=== PATIENT | male | born 1965 | race Caucasian/White ===

== ENCOUNTER → 2016-08-15 | Outpatient (CLI) | payer MEDICARE, OTHER ==
--- NOTE | 2016-08-15 16:35 | P.HPBAR ---
Bariatric H&P - History & Physicial H&P Date: 08/15/16 History & Physicial: Visit/CC: panni consult Patient initial contact: Initial weight: 181.709 kg Initial weight in pounds: 400.60 Height: 5 ft 7.5 in Initial BMI: 61.8 Last weight: Current weight: 94.801 kg Current weight in pounds: 209.00 Current BMI: 32.2 [place] body weight (based on NIH guidelines): 68.492 kg Excess body weight loss: 76.7% The patient is a 51 year-old M who presents for Bariatric Assessment. Patient presents for sleeve and panniculectomy consult. His weight has been stable. His loss approximately 220 pounds. He has a well-formed pannus related to his weight loss. He is requesting information about panniculectomy. Past Medical History Past Medical History: Coronary Artery Disease (CAD), Chest Pain / Angina, Heart Failure, COPD, Diabetes Mellitus, GERD/Reflux, Hyperlipidemia, Hypertension, Myocardial Infarction ([place]), Osteoarthritis (OA), Pneumonia, Renal Disease, Skin Disorder, Sleep Apnea/CPAP/BIPAP, Vascular Disorder Additional Past Medical History / Comment(s): HX OF [place] X2 (DATE UNKNOWN), CARDIOMYOPATHY, RESP FAILURE,SOME MINOR SORES FROM SCRATCHING. OXYGEN AT 3 LITERS at bedtime. NO C-PAP. PNEUMONIA 06/2014. PVD. Last Myocardial Infarction Date:: UNKNOWN History of Any Multi-Drug Resistant Organisms: None Reported Past Surgical History: Bariatric Surgery, Heart Catheterization, Hernia Repair, Orthopedic Surgery Additional Past Surgical History / Comment(s): ATTEMPTED HEART CATH, VESSELS TOO SMALL 2012,. RT KNEE TENDON REPAIR. . UMBILICAL HERNIA REPAIR. EGD . gastric sleeve 09/14 Past Anesthesia/Blood Transfusion Reactions: No Reported Reaction Past Psychological History: ADD/ADHD, Anxiety, Depression Additional Psychological History / Comment(s): ADHD. SEES DR GRACE SANTANA. Smoking Status: Former smoker Past Alcohol Use History: None Reported Past Drug Use History: None Reported - Past Family History Father Family Medical History: Chest Pain / Angina, Congestive Heart Failure (CHF), COPD Mother Family Medical History: Diabetes Mellitus, GERD/Reflux Surgical - Exam Vital Signs Temp Pulse Resp BP 97.8 F 51 L 14 119/76 08/15/16 15:24 08/15/16 15:24 08/15/16 15:24 08/15/16 15:24 - General well developed, no distress - Eyes PERRL - ENT normal pinna - Neck no masses - Respiratory normal expansion - Cardiovascular Rhythm: regular - Abdomen Well-formed panniculus Abdomen: soft, non tender - Integumentary Well-formed panniculus. There is skin and fat pain to the level of the pubic area. There is some evidence of chronic skin irritation's. Bariatric Assessment & Plan Plan: Well-formed panniculus. Patient was given an information in the collecting. Photographs were performed. We'll attempt to obtain insurance authorization. Status post sleeve yesterday. Patient is doing well from a weight loss standpoint. He'll follow-up in one month. Bariatric Checklist Checklist: Plan: Checklist: EGD: 1. Hiatal hernia: 2. H. Pylori: HgbA1c: Vitamin D: Smoking: Former smoker Primary care physician referral: none ( Psychiatry clearance: Cardiology clearance: Sleep study: Diet journal: VTE risk score: VTE risk level: Rehab needs at discharge:
== END | disposition home or self-care (01) ==
CPT/HCPCS: 99211

== ENCOUNTER 2017-06-07 23:26 | Emergency (ER) | payer MEDICARE, OTHER ==
[2017-06-07 23:31] VITALS: RESP 18
[2017-06-07] MEDS ORDERED: MAGNESIUM CITRATE 296 ML BOTTLE PO ONE (23:45)
[2017-06-08 00:07] LABS: Basophils % (A) 0 %; CH 29.7; CHCM 33.2; Eosinophils # (A) 0.1 k/uL (0-0.7); Eosinophils % (A) 2 %; HCT 41.3 % (39.0-53.0); HDW 2.47; HGB 13.4 gm/dL (13.0-17.5); Luc % (Auto) 2; Lymphocytes # (A) 2.4 k/uL (1.0-4.8); Lymphocytes % (A) 34 %; MCH 29.2 pg (25.0-35.0); MCHC 32.5 g/dL (31.0-37.0); MCV 89.8 fL (80.0-100.0); Mean Platelet Volume 7.8; Monocytes # (A) 0.5 k/uL (0-1.0); Monocytes % (A) 7 %; Neutrophils # (A) 3.9 k/uL (1.3-7.7); Neutrophils % (A) 56 %; RDW 14.5 % (11.5-15.5); WBC 6.9 k/uL (3.8-10.6); WBC (Perox) 6.88
--- NOTE | 2017-06-08 00:25 | ED ---
GI Bleed HPI - General Chief complaint: GI Bleed Stated complaint: blood in stool Time Seen by Provider: 06/07/17 23:35 Source: patient Mode of arrival: ambulatory Limitations: no limitations - History of Present Illness Initial comments: 's patient is a 52-year-old man who presents with complaint of constipation. The patient states that he has been probably 3 days or more since he had a bowel movement. Tonight he was straining to pass some stool and he noted a few drops of blood in the toilet as well as having some blood wiped. The patient states that he tried taking Ex-Lax without any relief. He is requesting something else to try for constipation. Patient denies abdominal pain. MD complaint: blood on toilet paper Onset/Timin -: hour(s) Quality: painless Improves with: none Worsens with: none Associated Symptoms: denies other symptoms Treatments Prior to Arrival: none - Related Data Home Medications Medication Instructions Recorded Confirmed Naproxen Sodium [Aleve] 220 mg PO DAILY PRN 06/07/17 06/07/17 Allergies Allergy/AdvReac Type Severity Reaction Status Date / Time morphine AdvReac Hallucinati Verified 06/07/17 23:37 ons Review of Systems ROS Statement: Those systems with pertinent positive or pertinent negative responses have been documented in the HPI. ROS Other: All systems not noted in ROS Statement are negative. Constitutional: Denies: fever, chills Respiratory: Denies: cough Cardiovascular: Denies: chest pain, palpitations, syncope Gastrointestinal: Reports: constipation. Denies: abdominal pain, diarrhea Hematological/Lymphatic: Denies: easy bleeding Past Medical History Past Medical History: Coronary Artery Disease (CAD), Chest Pain / Angina, Heart Failure, COPD, Diabetes Mellitus, GERD/Reflux, Hyperlipidemia, Hypertension, Myocardial Infarction ([place]), Osteoarthritis (OA), Pneumonia, Renal Disease, Skin Disorder, Sleep Apnea/CPAP/BIPAP, Vascular Disorder Additional Past Medical History / Comment(s): HX OF [place] X2 (DATE UNKNOWN), CARDIOMYOPATHY, RESP FAILURE,SOME MINOR SORES FROM SCRATCHING. OXYGEN AT 3 LITERS at bedtime. NO C-PAP. PNEUMONIA 06/2014. PVD. Last Myocardial Infarction Date:: UNKNOWN History of Any Multi-Drug Resistant Organisms: None Reported Past Surgical History: Bariatric Surgery, Heart Catheterization, Hernia Repair, Orthopedic Surgery Additional Past Surgical History / Comment(s): ATTEMPTED HEART CATH, VESSELS TOO SMALL 2012,. RT KNEE TENDON REPAIR. . UMBILICAL HERNIA REPAIR. EGD . gastric sleeve 09/14 Past Anesthesia/Blood Transfusion Reactions: No Reported Reaction Past Psychological History: ADD/ADHD, Anxiety, Depression Smoking Status: Former smoker Past Alcohol Use History: None Reported Past Drug Use History: None Reported - Past Family History Father Family Medical History: Chest Pain / Angina, Congestive Heart Failure (CHF), COPD Mother Family Medical History: Diabetes Mellitus, GERD/Reflux General Exam Limitations: no limitations General appearance: alert, in no apparent distress Head exam: Present: atraumatic, normocephalic Eye exam: Present: normal appearance Respiratory exam: Present: normal lung sounds bilaterally. Absent: respiratory distress, wheezes, rales, rhonchi Cardiovascular Exam: Present: regular rate, normal rhythm, normal heart sounds. Absent: systolic murmur, diastolic murmur, rubs, gallop GI/Abdominal exam: Present: soft. Absent: distended, tenderness, guarding, rebound, mass Rectal exam: Present: normal rectal tone, other (Small fissure. Patient refused digital rectal exam). Absent: hemorrhoids Neurological exam: Present: alert, normal gait Skin exam: Present: warm, dry, intact, normal color. Absent: rash Course Vital Signs 06/07/17 23:27 Temperature 97 F L Pulse Rate 54 L Respiratory 18 Rate Blood Pressure 116/62 O2 Sat by Pulse 100 Oximetry Medical Decision Making - Lab Data Result diagrams: 06/07/17 23:53 Lab Results 06/07/17 Range/Units 23:53 WBC 6.9 (3.8-10.6) k/uL RBC 4.60 (4.30-5.90) m/uL Hgb 13.4 (13.0-17.5) gm/dL Hct 41.3 (39.0-53.0) % MCV 89.8 (80.0-100.0) fL MCH 29.2 (25.0-35.0) pg MCHC 32.5 (31.0-37.0) g/dL RDW 14.5 (11.5-15.5) % Plt Count 268 (150-450) k/uL Neutrophils % 56 % Lymphocytes % 34 % Monocytes % 7 % Eosinophils % 2 % Basophils % 0 % Neutrophils # 3.9 (1.3-7.7) k/uL Lymphocytes # 2.4 (1.0-4.8) k/uL Monocytes # 0.5 (0-1.0) k/uL Eosinophils # 0.1 (0-0.7) k/uL Basophils # 0.0 (0-0.2) k/uL Disposition Clinical Impression: Anal fissure, Constipation Disposition: HOME SELF-CARE Condition: Good Instructions: Gastrointestinal Bleeding (ED) Referrals: None,Stated [Primary Care Provider] - 1-2 days
[2017-06-08 00:39] VITALS: BP 106/58; PULSE 55; TEMP 97.7
== END 2017-06-08 00:39 | disposition home or self-care (01) ==
LOC: EC 23:26
DX: K60.2 Anal fissure, unspecified (principal); K59.00 Constipation, unspecified; Z87.891 Personal history of nicotine dependence; Z98.84 Bariatric surgery status; Z98.890 Other specified postprocedural states; Z88.5 Allergy status to narcotic agent
CPT/HCPCS: 36415; 85025; 99283

== ENCOUNTER 2017-07-17 18:24 | Observation (INO) | payer MEDICARE, OTHER ==
[2017-07-17] MEDS ORDERED: KETOROLAC 30 MG/ML 1 ML VIAL IVP STA (19:05)
[2017-07-17] MEDS ORDERED: NITROGLYCERIN OINT 1 INCH/GM PACKET TOPICAL STA (19:05)
[2017-07-17] MEDS ORDERED: ASPIRIN 81 MG PO STA (19:05)
--- NOTE | 2017-07-17 19:09 | ED ---
Chest Pain HPI - General Chief Complaint: Chest Pain Stated Complaint: CHEST PAIN, Hx Time Seen by Provider: 07/17/17 18:50 Source: patient Mode of arrival: wheelchair Limitations: no limitations - History of Present Illness Initial Comments: This 52-year-old white male presents with a complaint of some left-sided chest pain without radiation. He states that this occurred earlier today. He states that is a pressure type of pain. He has occasional shortness of breath. He denies any actual injuries. It is worse with deep inspiration. He denies any leg pain or swelling. He is unsure if he's ever had a DVT or PE. He is unsure when his last stress test was. He does relate a history of previous heart attack and congestive heart failure. He is requesting pain medications. Is somewhat difficult historian. No other complaints or modifying factors. - Related Data Home Medications Medication Instructions Recorded Confirmed Naproxen Sodium [Aleve] 220 mg PO BID PRN 06/07/17 07/17/17 Allergies Allergy/AdvReac Type Severity Reaction Status Date / Time morphine AdvReac Hallucinati Verified 07/17/17 18:29 ons Review of Systems ROS Statement: Those systems with pertinent positive or pertinent negative responses have been documented in the HPI. ROS Other: All systems not noted in ROS Statement are negative. Past Medical History Past Medical History: Coronary Artery Disease (CAD), Chest Pain / Angina, Heart Failure, COPD, Diabetes Mellitus, GERD/Reflux, Hyperlipidemia, Hypertension, Myocardial Infarction ([place]), Osteoarthritis ([place]), Pneumonia, Renal Disease, Skin Disorder, Sleep Apnea/CPAP/BIPAP, Vascular Disorder Additional Past Medical History / Comment(s): HX OF [place] X2 (DATE UNKNOWN), CARDIOMYOPATHY, RESP FAILURE,SOME MINOR SORES FROM SCRATCHING. OXYGEN AT 3 LITERS at bedtime. NO C-PAP. PNEUMONIA 06/2014. PVD. Last Myocardial Infarction Date:: UNKNOWN History of Any Multi-Drug Resistant Organisms: None Reported Past Surgical History: Bariatric Surgery, Heart Catheterization, Hernia Repair, Orthopedic Surgery Additional Past Surgical History / Comment(s): ATTEMPTED HEART CATH, VESSELS TOO SMALL 2012,. RT KNEE TENDON REPAIR. . UMBILICAL HERNIA REPAIR. EGD . gastric sleeve 09/14 Past Anesthesia/Blood Transfusion Reactions: No Reported Reaction Past Psychological History: ADD/ADHD, Anxiety, Depression Smoking Status: Former smoker Past Alcohol Use History: None Reported Past Drug Use History: None Reported - Past Family History Father Family Medical History: Chest Pain / Angina, Congestive Heart Failure (CHF), COPD Mother Family Medical History: Diabetes Mellitus, GERD/Reflux General Exam - General Exam Comments Initial Comments: GENERAL: The patient is well nourished and well hydrated. VITAL SIGNS: Heart rate, blood pressure, respiratory rate reviewed as recorded in nurse's notes. EYES: Pupils are round and reactive. Extraocular movements are intact. No conjunctival / lid redness or swelling. ENT: No external evidence of injury, swelling, or ecchymosis. Airway is patent. Throat is clear. NECK: Nontender. No swelling or evidence of injury. No subcutaneous emphysema. Trachea is midline. No thyroid mass. HEART: Regular rate and rhythm. Good peripheral pulses. LUNGS/CHEST: Breath sounds clear and equal bilaterally. No rales, rhonchi, or wheezes. No ecchymosis, subcutaneous emphysema. There is some mild tenderness upon palpation of the left chest. ABDOMEN: Abdomen soft without tenderness. No palpable masses or organomegaly. No peritoneal signs. No abdominal wall swelling or ecchymosis. EXTREMITIES: No extremity tenderness. Normal muscle tone and function. No thoracolumbar tenderness. There is no leg tenderness or swelling. NEUROLOGIC: Sensation is grossly intact. Cranial nerve exam reveals face is symmetrical, tongue is midline, speech is clear. SKIN: No abrasions or ecchymosis is noted. No induration or masses noted. PSYCHIATRIC: Alert and oriented. Appropriate behavior and judgment. Limitations: no limitations Course Vital Signs 07/17/17 07/17/17 18:26 19:31 Temperature 97.3 F L Pulse Rate 54 L 56 L Respiratory 18 18 Rate Blood Pressure 117/71 130/75 O2 Sat by Pulse 100 98 Oximetry Chest Pain MDM - MDM The patient was seen and examined. All diagnostics were reviewed. The EKG shows a sinus bradycardia at a rate of 53. There is no acute ST-T wave changes identified. The TX intervals 152, QRS duration is 104, and the QTC intervals 410. He does receive some aspirin as well as Nitropaste and Toradol. The chest x-ray was negative for any acute processes. The laboratory was all within normal limits including the troponin and d-dimer. The patient is continually requesting Dilaudid. It is not felt as though Dilaudid is warranted for this condition. He is complaining of chronic hip pain and chronic neck pain as well. He is given Tylenol instead and voices displeasure. Nevertheless, it is felt as though he benefit from admission to the hospital to rule out any possibility of acute coronary syndrome. Case is discussed with Dr. Ramirez and he is agreeable with admission. Disposition Clinical Impression: Chest pain, Sinus bradycardia, Chronic pain Disposition: ADMITTED IP TO THIS [facility] Condition: Fair Time of Disposition: 21:41 Decision Date: 07/17/17 Decision Time: 21:41
[2017-07-17 19:24] LABS: Basophils % (A) 1 %; CH 29.8; CHCM 34.3; Eosinophils # (A) 0.1 k/uL (0-0.7); Eosinophils % (A) 2 %; HCT 41.2 % (39.0-53.0); HGB 13.7 gm/dL (13.0-17.5); Luc # (Auto) 0.13; Luc % (Auto) 2; Lymphocytes # (A) 2.3 k/uL (1.0-4.8); Lymphocytes % (A) 26 %; MCH 29.1 pg (25.0-35.0); MCHC 33.3 g/dL (31.0-37.0); MCV 87.3 fL (80.0-100.0); Mean Platelet Volume 7.3; Monocytes # (A) 0.4 k/uL (0-1.0); Monocytes % (A) 5 %; Neutrophils # (A) 5.6 k/uL (1.3-7.7); Neutrophils % (A) 66 %; RBC 4.72 m/uL (4.30-5.90); RDW 12.5 % (11.5-15.5); WBC 8.6 k/uL (3.8-10.6); WBC (Perox) 8.12
[2017-07-17 19:35] LABS: ALT 37 U/L (21-72); AST 52 U/L (17-59); Alkaline Phosphatase 72 U/L (38-126); Anion Gap 8 mmol/L; Blood Urea Nitrogen 20 mg/dL (9-20); Calcium 9.4 mg/dL (8.4-10.2); Carbon Dioxide 27 mmol/L (22-30); Chloride 105 mmol/L (98-107); Glucose 79 mg/dL (74-99); Non-African American GFR(MDRD) >60 (>60 ml/min/1.73 sqM); Potassium 4.2 mmol/L (3.5-5.1); Sodium 140 mmol/L (137-145); Total Bilirubin 0.3 mg/dL (0.2-1.3); Total Protein 6.6 g/dL (6.3-8.2)
[2017-07-17 19:38] LABS: INR 1.1 (<1.2); Partial Thromboplastin Time 23.5 sec (22.0-30.0); Prothrombin Time 10.8 sec (9.0-12.0)
[2017-07-17 19:59] LABS: Creatine Kinase MB 1.2 ng/mL (0.0-2.4); Troponin I 0.015 ng/mL (0.000-0.034)
--- NOTE | 2017-07-17 20:21 | XR ---
EXAMINATION: XR chest 2V DATE AND TIME: 07/17/2017 7:50 PM ORDERING PROVIDER: Gonzales Hargrove DO CLINICAL INDICATION: Chest Pain TECHNIQUE: AP and lateral COMPARISON: 09/06/2015 DESCRIPTION: EKG leads noted. The lungs are clear. The pleural spaces are negative. The cardiac silhouette is not enlarged. The mediastinal and pleural silhouettes are unremarkable. The skeletal structures are intact without focal findings. The soft tissues are unremarkable. IMPRESSION: NO ACUTE PROCESS.
[2017-07-17] MEDS ORDERED: ACETAMINOPHEN TAB 500 MG TAB PO STA (21:35)
[2017-07-17] MEDS ORDERED: NITROGLYCERIN SL TABS 0.4 MG TAB SUBLINGUAL PRN (21:44)
[2017-07-17] MEDS ORDERED: ACETAMINOPHEN TAB 325 MG TAB PO PRN (21:44)
[2017-07-17] MEDS ORDERED: KETOROLAC 30 MG/ML 1 ML VIAL IVP PRN (21:47)
[2017-07-17] MEDS ORDERED: HYDROmorphone 1 MG/ML 1 ML SYRINGE IVP STA (22:13)
[2017-07-17] MEDS ORDERED: NALOXONE 0.4 MG/ML 1 ML VIAL IV PRN (22:24)
[2017-07-17] MEDS ORDERED: ONDANSETRON 4 MG/2 ML VIAL IVP PRN (22:24)
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
[2017-07-17] MEDS: HYDROcodone/APAP 5-325MG 1 EACH TAB PO PRN (23:13)
[2017-07-17] MEDS: NITROGLYCERIN OINT 1 INCH/GM PACKET TOPICAL SCH (23:25)
--- NOTE | 2017-07-17 23:40 | XR ---
EXAM: XR Right Hip CLINICAL HISTORY: Reason: Pain TECHNIQUE: X-ray right hip. COMPARISON: January 01, 2014 FINDINGS/IMPRESSION: 2 views. No acute fracture or dislocation is identified. DJD which appears more prominent than the previous examination with more prominent disc space narrowing, osteophytes and mixed areas of subchondral sclerosis and lucencies likely representing subchondral cysts. If symptoms warrant, could obtain MRI follow-up as discussed on the previous.
[2017-07-18 01:16] LABS: Creatine Kinase MB 1.1 ng/mL (0.0-2.4); Troponin I 0.013 ng/mL (0.000-0.034)
[2017-07-18] MEDS: HYDROmorphone 1 MG/ML 1 ML SYRINGE IV PRN ×5 (01:45→13:26)
[2017-07-18] MEDS: HYDROcodone/APAP 5-325MG 1 EACH TAB PO PRN ×3 (05:04→14:48)
[2017-07-18] MEDS: NITROGLYCERIN OINT 1 INCH/GM PACKET TOPICAL SCH ×3 (05:08→11:28)
[2017-07-18 05:48] LABS: Glucose,Whole Blood 95 mg/dL (75-99)
[2017-07-18 06:38] LABS: Basophils % (A) 1 %; CH 29.4; CHCM 32.6; Eosinophils # (A) 0.2 k/uL (0-0.7); Eosinophils % (A) 3 %; HCT 37.6 % (39.0-53.0); HDW 2.46; Luc # (Auto) 0.09; Luc % (Auto) 1; Lymphocytes # (A) 2.7 k/uL (1.0-4.8); Lymphocytes % (A) 35 %; MCV 90.5 fL (80.0-100.0); Mean Platelet Volume 7.7; Monocytes # (A) 0.4 k/uL (0-1.0); Monocytes % (A) 5 %; Neutrophils # (A) 4.2 k/uL (1.3-7.7); Neutrophils % (A) 55 %; RBC 4.15 m/uL (4.30-5.90); RDW 13.9 % (11.5-15.5); WBC 7.6 k/uL (3.8-10.6); WBC (Perox) 7.81
[2017-07-18 06:53] LABS: Anion Gap 6 mmol/L; Blood Urea Nitrogen 20 mg/dL (9-20); Calcium 8.9 mg/dL (8.4-10.2); Carbon Dioxide 28 mmol/L (22-30); Chloride 107 mmol/L (98-107); Cholesterol 162 mg/dL (<200); Glucose 85 mg/dL (74-99); HDL Cholesterol 57 mg/dL (40-60); Non-African American GFR(MDRD) >60 (>60 ml/min/1.73 sqM); Phosphorus 4.8 mg/dL (2.5-4.5); Potassium 4.2 mmol/L (3.5-5.1); Sodium 141 mmol/L (137-145)
[2017-07-18 07:21] LABS: Troponin I 0.015 ng/mL (0.000-0.034)
[2017-07-18 08:02] VITALS: RESP 16; TEMP 97.1
[2017-07-18] MEDS ORDERED: ENOXAPARIN 40 MG/0.4 ML SYRINGE SQ SCH (09:00)
[2017-07-18] MEDS ORDERED: ASPIRIN 325 MG TAB PO SCH (09:00)
[2017-07-18 11:27] VITALS: BP 117/78; PULSE 62
[2017-07-18 11:29] LABS: Glucose,Whole Blood 130 mg/dL (75-99)
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
[2017-07-18] MEDS ORDERED: LISINOPRIL 2.5 MG TAB PO SCH (13:15)
--- NOTE | 2017-07-18 13:54 | P.PN ---
Progress Note - Text Progress Note Date: 07/18/17 This is an addendum to the cardiology consultation dictated earlier today. Dr. Salazar did review the echocardiogram with Doppler study and compare with prior. LV is unchanged. Patient presented with atypical chest discomfort. We will maximize the patient's medical therapy by adding aspirin, statin, SUMIT inhibitor , he will need to be on a beta brooke however because of hypotension and bradycardia this will be reassessed in the office. A follow-up appointment will be made with Dr. Salazar in 3-4 weeks and outpatient stress test ordered. DNP note has been reviewed, I agree with a documented findings and plan of care. Patient was seen and examined.
--- NOTE | 2017-07-18 14:26 | ECHOF ---
Referral Reason: MEASUREMENTS -------- HEIGHT: 170.2 cm WEIGHT: 83.9 kg BP: 98/56 RVIDd: 2.7 cm (< 3.3) IVSd: 1.2 cm (0.6 - 1.1) LVIDd: 5.1 cm (3.9 - 5.3) LVPWd: 0.9 cm (0.6 - 1.1) IVSs: 1.3 cm LVIDs: 3.6 cm LVPWs: 1.6 cm LA Diam: 4.4 cm (2.7 - 3.8) LAESV Index (A-L): 38.21 ml/m Ao Diam: 3.2 cm (2.0 - 3.7) AV Cusp: 2.0 cm (1.5 - 2.6) LA Diam: 4.4 cm (2.7 - 3.8) MV EXCURSION: 18.048 mm (> 18.000) MV EF SLOPE: 62 mm/s (70 - 150) EPSS: 0.6 cm MV E Brain: 1.05 m/s MV DecT: 259 ms MV A Brain: 0.56 m/s MV E/A Ratio: 1.88 RAP: 5.00 mmHg RVSP: 24.61 mmHg FINDINGS -------- Sinus rhythm. This was a technically good study. The left ventricular size is normal. There is mild concentric left ventricular hypertrophy. Overa ll left ventricular systolic function is moderate-severely impaired with, an EF between 30 - 35 %. Possible Takotsubo. Lateral hypokinesis [place] Hypokinesis. Distal Septal Hypokinesis. The right ventricle is normal in size. LA is moderately dilated 34-39 ml/m2 The right atrial size is normal. The aortic valve is trileaflet, and appears structurally normal. No aortic stenosis or regurgitation. Mild mitral regurgitation is present. Mild tricuspid regurgitation present. There is no evidence of pulmonary hypertension. The right v entricular systolic pressure, as measured by Doppler, is 24.61mmHg. Trace/mild (physiologic) pulmonic regurgitation. The aortic root size is normal. There is no pericardial effusion. CONCLUSIONS -------- 1. The left ventricular size is normal. 2. There is mild concentric left ventricular hypertrophy. 3. Overall left ventricular systolic function is moderate-severely impaired with, an EF between 30 - 35 %. 4. Possible Takotsubo. 5. Lateral hypokinesis 6. [place] Hypokinesis. 7. Distal Septal Hypokinesis. 8. LA is moderately dilated 34-39 ml/m2 9. The aortic valve is trileaflet, and appears structurally normal. No aortic stenosis or regurgitati on. 10. Mild mitral regurgitation is present. 11. Mild tricuspid regurgitation present. 12. There is no evidence of pulmonary hypertension. 13. The right ventricular systolic pressure, as measured by Doppler, is 24.61mmHg. 14. Trace/mild (physiologic) pulmonic regurgitation. 15. The aortic root size is normal. 16. There is no pericardial effusion. [employer]ALENT ACQUISITION PROJECT MANAGER: Leena Sultana RDCS
--- NOTE | 2017-07-18 14:47 | P.DS ---
Providers Date of admission: 07/17/17 21:44 Attending physician: Mauricio Ramirez MD Consults: 07/17/17 21:44 Consult Physician Urgent Consulting Provider: Aleks Akbar Consult Reason/Comments: cp Do you want consulting provider notified?: Yes Primary care physician: Stated None - Discharge Diagnosis(es) (1) Atypical chest pain Current Visit: Yes Status: Acute (2) Cardiomyopathy Current Visit: Yes Status: Acute Hospital Course: The patient is a 52-year-old male who was admitted for atypical chest pain he has a history of cardiomyopathy he had initial EKG and cardiac enzymes all of which were negative for any suggestion of acute ischemia, cardiology Dr. Salazar was consulted and recommended echocardiogram that showed EF of 30-35% possible Takotsubo cardiomyopathy. Cardiology thought that the patient did not require stress test at this time but recommended initiation of low-dose lisinopril, aspirin and statin therapy with plans to follow up in cardiology clinic in 3-4 weeks. Patient Condition at Discharge: Fair Plan - Discharge Summary New Discharge Prescriptions: New Aspirin 81 mg PO DAILY #30 chew Atorvastatin [Lipitor] 20 mg PO HS #30 tab Lisinopril [Zestril] 2.5 mg PO DAILY #30 tab Continue Naproxen Sodium [Aleve] 220 mg PO BID PRN PRN Reason: Pain Discharge Medication List Naproxen Sodium [Aleve] 220 mg PO BID PRN 06/07/17 [History] Aspirin 81 mg PO DAILY #30 chew 07/18/17 [Rx] Atorvastatin [Lipitor] 20 mg PO HS #30 tab 07/18/17 [Rx] Lisinopril [Zestril] 2.5 mg PO DAILY #30 tab 07/18/17 [Rx] Discharge Disposition: HOME SELF-CARE
[2017-07-18] MEDS ORDERED: ATORVASTATIN 20 MG TAB PO SCH (21:00)
[2017-07-19] MEDS ORDERED: ASPIRIN 81 MG PO SCH (09:00)
== END 2017-07-18 16:43 | disposition home or self-care (01) ==
LOC: EC 18:24 → 6SEL 21:44
PROVIDERS: ADMIT Internal Medicine; ATTEND Internal Medicine
DX: R07.89 Other chest pain (principal); I42.9 Cardiomyopathy, unspecified; M54.2 Cervicalgia; M25.551 Pain in right hip; G89.29 Other chronic pain; I11.0 Hypertensive heart disease with heart failure; I50.20 Unspecified systolic (congestive) heart failure; I25.10 Atherosclerotic heart disease of native coronary artery without angina pectoris; Z91.14 Patient's other noncompliance with medication regimen; E78.5 Hyperlipidemia, unspecified; G47.30 Sleep apnea, unspecified; J44.9 Chronic obstructive pulmonary disease, unspecified; Z99.81 Dependence on supplemental oxygen; I25.2 Old myocardial infarction; M19.90 Unspecified osteoarthritis, unspecified site; Z87.891 Personal history of nicotine dependence; Z88.5 Allergy status to narcotic agent; Z98.84 Bariatric surgery status; Z87.01 Personal history of pneumonia (recurrent)
CPT/HCPCS: 99285 ×2; 96374 ×2; 96375 ×2; 96376; 96372; 36415; 94760; 93005; 93306; 85379; 83880; 80061; 80053; 80048; 82550 ×2; 82553 ×2; 83735 ×2; 84100; 84484 ×2; 85025 ×2; 85610; 85730; 71020; 73502; G0378 ×2; J1650; J1885; J1170 ×2

== ENCOUNTER → 2017-08-07 | Outpatient (CLI) | payer MEDICARE, OTHER ==
[2017-08-07 14:28] VITALS: BP 121/76; PULSE 42; RESP 16; TEMP 97.8; BMI 30.1
--- NOTE | 2017-08-07 16:49 | P.HPBAR ---
Bariatric H&P - History & Physicial H&P Date: 08/07/17 History & Physicial: Visit/CC: sleeve pursuing janette Patient initial contact: Initial weight: 181.709 kg Initial weight in pounds: 400.60 Height: 5 ft 7.5 in Initial BMI: 61.8 Last weight: Current weight: 88.649 kg Current weight in pounds: 195.00 Current BMI: 30.1 [place] body weight (based on NIH guidelines): 68.492 kg Excess body weight loss: 82.3% The patient is a 52 year-old M who presents for Bariatric Assessment. The patient presents today for sleeve gastrectomy follow-up. He is doing very well. He's lost another 15 pounds since his last visit. He's had some minimal GERD symptoms. Past Medical History Past Medical History: Coronary Artery Disease (CAD), Chest Pain / Angina, Heart Failure, COPD, Diabetes Mellitus, GERD/Reflux, Hyperlipidemia, Hypertension, Myocardial Infarction (AR), Osteoarthritis (OA), Pneumonia, Renal Disease, Skin Disorder, Sleep Apnea/CPAP/BIPAP, Vascular Disorder Additional Past Medical History / Comment(s): HX OF [place] X2 (DATE UNKNOWN), CARDIOMYOPATHY, RESP FAILURE,SOME MINOR SORES FROM SCRATCHING. OXYGEN AT 3 LITERS at bedtime. NO C-PAP. PNEUMONIA 06/2014. PVD. Last Myocardial Infarction Date:: UNKNOWN History of Any Multi-Drug Resistant Organisms: None Reported Past Surgical History: Bariatric Surgery, Heart Catheterization, Hernia Repair, Orthopedic Surgery Additional Past Surgical History / Comment(s): ATTEMPTED HEART CATH, VESSELS TOO SMALL 2012,. RT KNEE TENDON REPAIR. . UMBILICAL HERNIA REPAIR. EGD . gastric sleeve 09/14 Past Anesthesia/Blood Transfusion Reactions: No Reported Reaction Past Psychological History: ADD/ADHD, Anxiety, Depression Additional Psychological History / Comment(s): ADHD. looking for new psych physician Smoking Status: Former smoker Past Alcohol Use History: None Reported Past Drug Use History: None Reported - Past Family History Father Family Medical History: Chest Pain / Angina, Congestive Heart Failure (CHF), COPD Mother Family Medical History: Diabetes Mellitus, GERD/Reflux Surgical - Exam Vital Signs Temp Pulse Resp BP 97.8 F 42 L 16 121/76 08/07/17 14:26 08/07/17 14:26 08/07/17 14:26 08/07/17 14:26 - General well developed, no distress - Abdomen Abdomen: soft, non tender Bariatric Assessment & Plan Plan: Status post sleeve yesterday. Patient has had excellent weight loss. His GERD symptoms are minimal will be observed. He'll follow-up in one month. Bariatric Checklist Checklist: Plan: Checklist: EGD: 1. Hiatal hernia: 2. H. Pylori: HgbA1c: Vitamin D: Smoking: Former smoker Primary care physician referral: none ( Psychiatry clearance: Cardiology clearance: Sleep study: Diet journal: VTE risk score: VTE risk level: Rehab needs at discharge:
== END | disposition home or self-care (01) ==
LOC: BARWHC3 12:59
PROVIDERS: ATTEND Surgery
DX: Z09 Encounter for follow-up examination after completed treatment for conditions other than malignant neoplasm (principal); I50.9 Heart failure, unspecified; E11.9 Type 2 diabetes mellitus without complications; J44.9 Chronic obstructive pulmonary disease, unspecified; E78.5 Hyperlipidemia, unspecified; I10 Essential (primary) hypertension; F41.9 Anxiety disorder, unspecified; F32.9 Major depressive disorder, single episode, unspecified; Z87.891 Personal history of nicotine dependence; Z98.84 Bariatric surgery status
CPT/HCPCS: 99211

== ENCOUNTER 2018-04-12 14:56 | Observation (INO) | payer MEDICARE, OTHER ==
[2018-04-12] MEDS ORDERED: SODIUM CHLORIDE 0.9% 500 ML IV STA (15:10)
--- NOTE | 2018-04-12 15:10 | ED ---
General Adult HPI - General Chief complaint: Arrhythmia/Palpitations Stated complaint: heart concerns-sent by Source: patient Mode of arrival: ambulatory Limitations: no limitations - History of Present Illness Initial comments: Dictation was produced using [employer] dictation software. please excuse any grammatical, word or spelling errors. Chief Complaint: 53-year-old male was seen at her care physician's office and was found to be bradycardic and lightheaded. History of Present Illness: Patient is a 53-year-old male who was at his primary care's office. He has not seen that primary care in the past. She was attended to [facility] for the first time. Initial vital signs that they showed bradycardia with a rate in the 30s. He was shown to have a normal blood pressure. Patient states been feeling lightheaded for the past week especially with exertion. Patient has extensive history of coronary artery disease. Patient states he slightly short of breath especially with exertion. History of multiple heart attacks. He explains that he doesn't have any stents because the arteries were 2 small. Patient denies any constitutional symptoms. He denies any chest pain at this time. Patient does have chronic hip and knee pain of the right side. Patient has been noncompliant with physicians recently. He is not on any medications at this time. The ROS documented in this emergency department record has been reviewed and confirmed by me. Those systems with pertinent positive or negative responses have been documented in the HPI. All other systems are other negative and/or noncontributory. - Related Data Home Medications Medication Instructions Recorded Confirmed Naproxen Sodium [Aleve] 220 mg PO BID PRN 06/07/17 04/12/18 Allergies Allergy/AdvReac Type Severity Reaction Status Date / Time morphine AdvReac numbness Verified 04/12/18 15:24 Review of Systems ROS Statement: Those systems with pertinent positive or pertinent negative responses have been documented in the HPI. ROS Other: All systems not noted in ROS Statement are negative. Past Medical History Past Medical History: Coronary Artery Disease (CAD), Chest Pain / Angina, Heart Failure, COPD, Diabetes Mellitus, GERD/Reflux, Hyperlipidemia, Hypertension, Myocardial Infarction ([place]), Osteoarthritis (OA), Pneumonia, Renal Disease, Skin Disorder, Sleep Apnea/CPAP/BIPAP, Vascular Disorder Additional Past Medical History / Comment(s): HX OF OR X2 (DATE UNKNOWN), CARDIOMYOPATHY, RESP FAILURE,SOME MINOR SORES FROM SCRATCHING. OXYGEN AT 3 LITERS at bedtime. NO C-PAP. PNEUMONIA 06/2014. PVD. Last Myocardial Infarction Date:: UNKNOWN History of Any Multi-Drug Resistant Organisms: None Reported Past Surgical History: Bariatric Surgery, Heart Catheterization, Hernia Repair, Orthopedic Surgery Additional Past Surgical History / Comment(s): ATTEMPTED HEART CATH, VESSELS TOO SMALL 2012,. RT KNEE TENDON REPAIR. . UMBILICAL HERNIA REPAIR. EGD . gastric sleeve 09/14 Past Anesthesia/Blood Transfusion Reactions: No Reported Reaction Past Psychological History: ADD/ADHD, Anxiety, Depression Smoking Status: Former smoker Past Alcohol Use History: None Reported Past Drug Use History: None Reported - Past Family History Father Family Medical History: Chest Pain / Angina, Congestive Heart Failure (CHF), COPD Mother Family Medical History: Diabetes Mellitus, GERD/Reflux General Exam - General Exam Comments Initial Comments: PHYSICAL EXAM: General Impression: Alert and oriented x3, not in acute distress HEENT: Normocephalic atraumatic, extra-ocular movements intact, pupils equal and reactive to light bilaterally, mucous membranes moist. Cardiovascular: Bradycardic no murmurs Chest: Lungs clear to auscultation bilaterally, no rhonchi, no wheeze, no rales Abdomen: Bowel sounds present, abdomen soft, non-tender, non-distended, no organomegaly Musculoskeletal: Pulses present and equal in all extremities, no peripheral edema Motor: Power 5/5 bilaterally, no focal deficits noted Neurological: CN II-XII grossly intact, no focal motor or sensory deficits noted Skin: Intact with no visualized rashes Psych: Normal affect and mood Limitations: no limitations Course Vital Signs 04/12/18 04/12/18 04/12/18 14:58 15:34 15:40 Temperature 98.1 F Pulse Rate 42 L 43 L Pulse Rate [ 40 L Steel Heater ] Respiratory 20 18 Rate Blood Pressure 150/89 154/90 O2 Sat by Pulse 99 100 Oximetry Medical Decision Making - Medical Decision Making ED course: 53-year-old male presents with bradycardia. Vital signs upon arrival shows heart rate of 42, rest of vital signs within normal limits. Patient is well-appearing. Physical examination is benign. Some morphine for chronic right hip and right knee pain. Patient denies any chest pain at this time. Lungs are clear to auscultation.Laboratory evaluation obtained. CBC unremarkable, coag panel unremarkable, metabolic panel is negative. Abdominal labs are negative. Cardiac enzymes are negative. Patient was observed in emergency department for several hours with stable heart rate in the 40s. Patient has no complaint at this time. Given bradycardia will plan to have patient admitted for cardiac consultation. No intervention indicated at this time. Patient is understandable agreeable to disposition. EKG interpretation: Ventricular rate 40, sinus bradycardia,. Interval 140, care surgeon 104, QTC 365. No HI prolongation, no QTC prolongation, no ST or T- wave changes noted. EKG compared to Gen. 2017 showing no changes. Overall , this EKG is unremarkable - Lab Data Result diagrams: 04/12/18 15:30 04/12/18 15:30 Lab Results 04/12/18 04/12/18 04/12/18 Range/Units 15:30 15:30 15:30 WBC 6.2 (3.8-10.6) k/uL RBC 4.58 (4.30-5.90) m/uL Hgb 13.0 (13.0-17.5) gm/dL Hct 40.6 (39.0-53.0) % MCV 88.7 (80.0-100.0) fL MCH 28.5 (25.0-35.0) pg MCHC 32.1 (31.0-37.0) g/dL RDW 14.0 (11.5-15.5) % Plt Count 251 (150-450) k/uL Neutrophils % 58 % Lymphocytes % 32 % Monocytes % 7 % Eosinophils % 1 % Basophils % 0 % Neutrophils # 3.6 (1.3-7.7) k/uL Lymphocytes # 1.9 (1.0-4.8) k/uL Monocytes # 0.4 (0-1.0) k/uL Eosinophils # 0.1 (0-0.7) k/uL Basophils # 0.0 (0-0.2) k/uL PT (9.0-12.0) sec INR (<1.2) APTT (22.0-30.0) sec Sodium 140 (137-145) mmol/L Potassium 4.7 (3.5-5.1) mmol/L Chloride 105 (98-107) mmol/L Carbon Dioxide 27 (22-30) mmol/L Anion Gap 8 mmol/L BUN 17 (9-20) mg/dL Creatinine 0.89 (0.66-1.25) mg/dL Est GFR (CKD-EPI)AfAm >90 (>60 ml/min/1.73 sqM) Est GFR (CKD-EPI)NonAf >90 (>60 ml/min/1.73 sqM) Glucose 92 (74-99) mg/dL Calcium 9.4 (8.4-10.2) mg/dL Magnesium 2.0 (1.6-2.3) mg/dL Total Bilirubin 0.6 (0.2-1.3) mg/dL AST 43 (17-59) U/L ALT 33 (21-72) U/L Alkaline Phosphatase 63 (38-126) U/L Total Creatine Kinase 86 (55-170) U/L CK-MB (CK-2) 1.3 (0.0-2.4) ng/mL CK-MB (CK-2) Rel Index 1.5 Troponin I 0.013 (0.000-0.034) ng/mL Total Protein 7.3 (6.3-8.2) g/dL Albumin 4.2 (3.5-5.0) g/dL TSH 1.320 (0.465-4.680) mIU/L 04/12/18 Range/Units 15:30 WBC (3.8-10.6) k/uL RBC (4.30-5.90) m/uL Hgb (13.0-17.5) gm/dL Hct (39.0-53.0) % MCV (80.0-100.0) fL MCH (25.0-35.0) pg MCHC (31.0-37.0) g/dL RDW (11.5-15.5) % Plt Count (150-450) k/uL Neutrophils % % Lymphocytes % % Monocytes % % Eosinophils % % Basophils % % Neutrophils # (1.3-7.7) k/uL Lymphocytes # (1.0-4.8) k/uL Monocytes # (0-1.0) k/uL Eosinophils # (0-0.7) k/uL Basophils # (0-0.2) k/uL PT 11.0 (9.0-12.0) sec INR 1.1 (<1.2) APTT 25.0 (22.0-30.0) sec Sodium (137-145) mmol/L Potassium (3.5-5.1) mmol/L Chloride (98-107) mmol/L Carbon Dioxide (22-30) mmol/L Anion Gap mmol/L BUN (9-20) mg/dL Creatinine (0.66-1.25) mg/dL Est GFR (CKD-EPI)AfAm (>60 ml/min/1.73 sqM) Est GFR (CKD-EPI)NonAf (>60 ml/min/1.73 sqM) Glucose (74-99) mg/dL Calcium (8.4-10.2) mg/dL Magnesium (1.6-2.3) mg/dL Total Bilirubin (0.2-1.3) mg/dL AST (17-59) U/L ALT (21-72) U/L Alkaline Phosphatase (38-126) U/L Total Creatine Kinase (55-170) U/L CK-MB (CK-2) (0.0-2.4) ng/mL CK-MB (CK-2) Rel Index Troponin I (0.000-0.034) ng/mL Total Protein (6.3-8.2) g/dL Albumin (3.5-5.0) g/dL TSH (0.465-4.680) mIU/L Disposition Clinical Impression: Bradycardia Disposition: ADMITTED IP TO THIS HOSP Condition: Fair Referrals: Susanne Gamino MD [Primary Care Provider] - 1-2 days Decision Time: 16:48
[2018-04-12 15:43] LABS: Basophils % (A) 0 %; Eosinophils # (A) 0.1 k/uL (0-0.7); Eosinophils % (A) 1 %; HCT 40.6 % (39.0-53.0); Lymphocytes # (A) 1.9 k/uL (1.0-4.8); Lymphocytes % (A) 32 %; MCH 28.5 pg (25.0-35.0); MCHC 32.1 g/dL (31.0-37.0); MCV 88.7 fL (80.0-100.0); Mean Platelet Volume 6.7; Monocytes # (A) 0.4 k/uL (0-1.0); Monocytes % (A) 7 %; Neutrophils # (A) 3.6 k/uL (1.3-7.7); Neutrophils % (A) 58 %; Platelet Count 251 k/uL (150-450); RBC 4.58 m/uL (4.30-5.90); WBC 6.2 k/uL (3.8-10.6)
[2018-04-12 15:52] LABS: INR 1.1 (<1.2)
[2018-04-12 15:56] LABS: ALT 33 U/L (21-72); AST 43 U/L (17-59); Albumin 4.2 g/dL (3.5-5.0); Alkaline Phosphatase 63 U/L (38-126); Anion Gap 8 mmol/L; Blood Urea Nitrogen 17 mg/dL (9-20); Calcium 9.4 mg/dL (8.4-10.2); Carbon Dioxide 27 mmol/L (22-30); Chloride 105 mmol/L (98-107); Glucose 92 mg/dL (74-99); Potassium 4.7 mmol/L (3.5-5.1); Sodium 140 mmol/L (137-145); Total Bilirubin 0.6 mg/dL (0.2-1.3); Total Protein 7.3 g/dL (6.3-8.2)
--- NOTE | 2018-04-12 16:04 | XR ---
EXAMINATION TYPE: XR chest 2V DATE OF EXAM: 04/12/2018 COMPARISON: 08/29/2017 HISTORY: 53-year-old male with dysrhythmia, abnormal EKG TECHNIQUE: PA and lateral views FINDINGS: The cardiomediastinal silhouette, aorta, and pulmonary vasculature are within normal limits. Some str [place]lan atelectasis at the right base. Otherwise, lungs and pleural spaces are clear. IMPRESSION: [place] right basilar atelectasis. Otherwise, no acute cardiopulmonary process.
[2018-04-12] MEDS ORDERED: MORPHINE SULFATE 4 MG/ML SYRINGE IVP PRN (16:12)
[2018-04-12] MEDS ORDERED: NAPROXEN 250 MG TAB PO PRN (16:14)
[2018-04-12] MEDS ORDERED: ACETAMINOPHEN TAB 500 MG TAB PO PRN (16:16)
[2018-04-12] MEDS ORDERED: TEMAZEPAM 15 MG CAP PO PRN (16:16)
[2018-04-12 16:29] LABS: Creatine Kinase MB 1.3 ng/mL (0.0-2.4); Troponin I 0.013 ng/mL (0.000-0.034)
[2018-04-12] MEDS ORDERED: NALOXONE 0.4 MG/ML 1 ML VIAL IV PRN (16:43)
--- NOTE | 2018-04-12 18:17 | HP ---
HISTORY AND PHYSICAL CHIEF COMPLAINT: Bradycardia. HISTORY OF PRESENT ILLNESS: This 53-year-old gentleman with a past medical history of multiple medical issues, including CAD, history of CHF, COPD, diabetes mellitus, type 2, GERD, hypertension, hyperlipidemia, history of myocardial infarction, history of renal disease, history of bariatric surgery, history of cardiac catheterization, ADD, ADHD, saw Dr. Susanne Gamino today for the first time, according to him. While in the office the patient was noted to have bradycardia. The rate was in the 30s. The physician sent the patient to [facility] for further evaluation and treatment. EKG showed sinus bradycardia. The patient was also feeling some lightheadedness, especially with exertion, for the past week. There is no history of any fever, rigor or chills. No history of headache, loss of consciousness, seizures. Chest x-ray was also done and showed some right basilar atelectasis. The basic labs are within normal limits. There is no history of any fever, rigor or chills at this time. PAST MEDICAL HISTORY: 1. History of CAD. 2. COPD. 3. CHF. 4. Diabetes mellitus. 5. GERD. 6. Hypertension. 7. Hyperlipidemia. 8. History of myocardial infarction. 9. History of bariatric surgery. 10.ADD, ADHD. 11.Anxiety. 12.Depression. HOME MEDICATIONS: Naprosyn 220 mg b.i.d. p.r.n. ALLERGIES: MORPHINE. FAMILY HISTORY: History of CHF and COPD. SOCIAL HISTORY: Previous history of smoking. No current smoking or alcohol intake. REVIEW OF SYSTEMS: ENT: No diminished hearing. No diminished vision. CARDIOVASCULAR SYSTEM: As mentioned earlier. RESPIRATORY SYSTEM: As mentioned earlier. GI: No nausea, vomiting. : No dysuria or retention. NERVOUS SYSTEM: No numbness, weakness. ALLERGY/IMMUNOLOGY: No asthma, hayfever. MUSCULOSKELETAL: As mentioned earlier. HEMATOLOGY/ONCOLOGY: No history of anemia. ENDOCRINE: No history of diabetes, hypothyroidism. CONSTITUTIONAL: As mentioned earlier. DERMATOLOGY: Negative. RHEUMATOLOGY: Negative. PSYCHIATRY: As mentioned earlier. PHYSICAL EXAMINATION: Patient is alert, oriented x3. The pulse is 40, blood pressure 150/90, respiration 18, temperature 98.1, pulse ox 100% on 2 L. HEENT: Conjunctivae normal. Oral mucosa moist. NECK: No jugular venous distention. No carotid bruit. No lymph node enlargement. CARDIOVASCULAR SYSTEM: S1, S2 muffled. Bradycardic. RESPIRATORY SYSTEM: Breath sounds diminished at the bases. No rhonchi. No crackles. ABDOMEN: Soft, non-tender. No mass palpable. LEGS: No edema. No swelling. NERVOUS SYSTEM: Higher functions as mentioned earlier. Moves all 4 limbs. No focal motor or sensory deficit. LYMPHATICS: No lymph node palpable in neck, axillae or groin. SKIN: No ulcer, rash, bleeding. No focal deficit. JOINTS: No active deforming arthropathy. LABS AT THIS TIME: CBC, CMP within normal limits. ASSESSMENT: 1. Bradycardia, symptomatic, for evaluation. 2. Dizziness. 3. History of coronary artery disease with occluded left anterior descending coronary artery with a failed attempt of percutaneous transluminal angioplasty previously. 4. Hypertension. 5. Degenerative joint disease. 6. History of chronic obstructive pulmonary disease. 7. Diabetes mellitus, type 2. 8. Hypertension. 9. Hyperlipidemia. 10.History of myocardial infarction. 11.History of sleep apnea. 12.History of bariatric surgery. 13.Attention deficit disorder, attention deficit hyperactivity disorder. 14.Anxiety, depression. RECOMMENDATION AND DISCUSSION: In this 53-year-old gentleman who presented with multiple complex medical issues., we will we will monitor the patient closely, continue the current medications, continue with symptomatic treatment. Monitor blood pressure closely. Telemetry. Cardiology consultation. Exact etiology of the bradycardia is unknown at this time. We will continue to monitor. The prognosis is guarded because of multiple complex medical issues. We will also check a TSH. Further recommendations to follow. A copy of this dictation is being forwarded to Dr. Susanne Gamino, who is the primary physician. MMODL / IJN: [id number] / MTDD
[2018-04-12] MEDS: HYDROcodone/APAP 5-325MG 1 EACH TAB PO PRN (20:53)
[2018-04-12] MEDS: ALPRAZolam 0.25 MG TAB PO PRN (20:54)
[2018-04-12] MEDS: HEPARIN SODIUM,PORCINE 5,000 UNIT/ML 1 ML VIAL SQ SCH (20:54)
[2018-04-12 22:03] LABS: Appearance,Urine Clear (Clear); Bilirubin,Urine Negative (Negative); Blood,Urine Negative (Negative); Color,Urine Light Yellow; Glucose,Urine (UA) Negative (Negative); Ketones,Urine Negative (Negative); Leukocyte Esterase,Urine Negative (Negative); Nitrite,Urine Negative (Negative); PH, Urine 6.5 (5.0-8.0); Protein,Urine Negative (Negative); Specific Gravity,Urine 1.009 (1.001-1.035); Urobilinogen,Urine <2.0 mg/dL (<2.0)
[2018-04-12 22:16] LABS: Amphetamine Screen,Urine Not Detected (NotDetected); Barbiturate Screen,Urine Not Detected (NotDetected); Benzodiazepines Screen,Urine Not Detected (NotDetected); Cocaine Screen,Urine Not Detected (NotDetected); Methadone Screen, Urine Not Detected (NotDetected); Opiate Screen,Urine Detected (NotDetected); Oxycodone Screen, Urine Detected (NotDetected); Phencyclidine Screen,Urine Not Detected (NotDetected); Tricyclic Antidepressant,Urine Not Detected (NotDetected); Urn Cannabinoid Scrn Not Detected (NotDetected)
[2018-04-12] MEDS ORDERED: MORPHINE SULFATE 2 MG/ML SYRINGE IVP PRN (23:07)
[2018-04-13] MEDS: HYDROcodone/APAP 5-325MG 1 EACH TAB PO PRN ×5 (01:04→20:02)
[2018-04-13 06:09] LABS: Anion Gap 7 mmol/L; Blood Urea Nitrogen 15 mg/dL (9-20); Calcium 8.8 mg/dL (8.4-10.2); Carbon Dioxide 26 mmol/L (22-30); Chloride 106 mmol/L (98-107); Glucose 84 mg/dL (74-99); Potassium 4.3 mmol/L (3.5-5.1); Sodium 139 mmol/L (137-145)
[2018-04-13] MEDS: PANTOPRAZOLE 40 MG TABLET PO SCH (08:32)
[2018-04-13] MEDS: HEPARIN SODIUM,PORCINE 5,000 UNIT/ML 1 ML VIAL SQ SCH ×2 (08:32→20:01)
--- NOTE | 2018-04-13 09:07 | P.CRDCN ---
History of Present Illness Consult date: 04/13/18 Requesting physician: Gee Mendez Reason for Consult (text): Bradycardia Chief complaint: Dizziness, lightheadedness History of present illness: This is a 53-year-old gentleman with history of prior diabetes, history of ischemic cardiomyopathy, history of chronic total occlusion of the LAD, hypertension, hyperlipidemia, he states that over the past 3 years after having sleep surgery, he lost approximately 300 pounds in weight. Since then he has not required any insulin, he only takes Aleve when necessary at home. Patient used to follow with Dr. German in the office, it appears that he has not had a follow-up there in quite some time, he had been on multiple medications in the past which he no longer has been taking any. History of noncompliance in the past. He did undergo a Lexiscan stress test in July 2017 which revealed 3 demonstrated findings suggesting a large anterior, anterior septal and apical infarction, fixed defects were slightly larger on that stress test as compared with the one prior to that. The last echocardiogram with Doppler study was performed in June 2017 which revealed an ejection fraction of 30-35%. The patient states that for the past few days she's been experiencing some symptoms of dizziness and lightheadedness and just overall feeling generally fatigued, he presented to the hospital from his doctor 's office, went there to be examined and it was noted that his heart rate was down in the 30s. His chest x-ray showed strandy right basilar atelectasis otherwise no acute cardiopulmonary process. Let pressure on admission here 150/ 80 with a heart rate of 40, 99% on room air. Blood pressure this morning is 110 /70, heart rate 46, 98% on room air. CBC is normal, sodium 139, potassium 4.3, BUN 15, creatinine 0.8. Troponin 0.013. TSH 1.3. Magnesium level 2.0. Toxicology positive for opiates and oxycodone. At the time of my examination, patient complains of just feeling tired, no other complaints. Heart rate 42. EKG shows a marked sinus bradycardia with T wave inversion in the lateral leads. EKG from July of this year also shows a marked sinus bradycardia with a heart rate in the 40s similar changes. Past Medical History Past Medical History: Coronary Artery Disease (CAD), Chest Pain / Angina, Heart Failure, COPD, Diabetes Mellitus, GERD/Reflux, Hyperlipidemia, Hypertension, Myocardial Infarction (MT), Osteoarthritis (OA), Pneumonia, Renal Disease, Skin Disorder, Sleep Apnea/CPAP/BIPAP, Vascular Disorder Additional Past Medical History / Comment(s): HX OF [place] X2 (DATE UNKNOWN), CARDIOMYOPATHY, RESP FAILURE, djd, NO C-PAP. PNEUMONIA 06/2014. PVD.adhd Last Myocardial Infarction Date:: UNKNOWN History of Any Multi-Drug Resistant Organisms: None Reported Past Surgical History: Bariatric Surgery, Heart Catheterization, Hernia Repair, Orthopedic Surgery Additional Past Surgical History / Comment(s): ATTEMPTED HEART CATH, VESSELS TOO SMALL 2012,. RT KNEE TENDON REPAIR. . UMBILICAL HERNIA REPAIR. EGD . gastric sleeve 09/14 Past Anesthesia/Blood Transfusion Reactions: No Reported Reaction Smoking Status: Former smoker - Past Family History Father Family Medical History: Chest Pain / Angina, Congestive Heart Failure (CHF), COPD Mother Family Medical History: Diabetes Mellitus, GERD/Reflux Medications and Allergies Home Medications Medication Instructions Recorded Confirmed Type Naproxen Sodium [Aleve] 220 mg PO BID PRN 06/07/17 04/12/18 History Allergies Allergy/AdvReac Type Severity Reaction Status Date / Time morphine AdvReac numbness Verified 04/12/18 15:24 Physical Exam Vitals: Vital Signs Temp Pulse Pulse Resp BP BP Pulse Ox 04/13/18 04:00 97.0 F L 46 L 16 110/72 98 04/13/18 00:00 97.2 F L 52 L 17 94/55 95 04/12/18 20:00 97.4 F L 43 L 16 155/92 100 04/12/18 18:45 98.6 F 49 L 20 134/66 99 04/12/18 17:45 41 L 20 155/84 99 04/12/18 16:45 46 L 20 139/78 98 04/12/18 15:40 43 L 18 154/90 100 04/12/18 15:34 40 L 04/12/18 14:58 98.1 F 42 L 20 150/89 99 Intake and Output 04/12/18 04/13/18 04/13/18 22:59 06:59 14:59 Intake Total 240 Output Total 450 Balance -450 240 Intake: Oral 240 Output: Urine 450 Other: Voiding Method Urinal Urinal # Voids 1 Weight 82.1 kg PHYSICAL EXAMINATION: GENERAL: 53-year-old gentleman in no apparent distress at the time of my examination HEENT: Head is atraumatic, normocephalic. Pupils equal, round. Sclera anicteric. Conjunctiva are clear. Mucous membranes of the mouth are moist. Neck is supple. There is no elevated jugular venous pressure. No carotid bruit is heard. HEART EXAMINATION: Heart S1, S2 systolic ejection murmur heard at the base . CHEST EXAMINATION: Lungs are clear to auscultation and precussion. No chest wall tenderness is noted on palpation or with deep breathing. ABDOMEN: Soft, nontender. Bowel sounds are heard. No organomegaly noted. EXTREMITIES: 2+ peripheral pulses with trace evidence of peripheral edema and no calf tenderness noted. NEUROLOGIC patient is awake, alert and oriented X3. . Results 04/12/18 15:30 04/13/18 05:15 Cardiac Enzymes 04/12/18 04/12/18 Range/Units 15:30 15:30 AST 43 (17-59) U/L CK-MB (CK-2) 1.3 (0.0-2.4) ng/mL Troponin I 0.013 (0.000-0.034) ng/mL Coagulation 04/12/18 Range/Units 15:30 PT 11.0 (9.0-12.0) sec APTT 25.0 (22.0-30.0) sec CBC 04/12/18 Range/Units 15:30 WBC 6.2 (3.8-10.6) k/uL RBC 4.58 (4.30-5.90) m/uL Hgb 13.0 (13.0-17.5) gm/dL Hct 40.6 (39.0-53.0) % Plt Count 251 (150-450) k/uL Comprehensive Metabolic Panel 04/12/18 04/13/18 Range/Units 15:30 05:15 Sodium 140 139 (137-145) mmol/L Potassium 4.7 4.3 (3.5-5.1) mmol/L Chloride 105 106 (98-107) mmol/L Carbon Dioxide 27 26 (22-30) mmol/L BUN 17 15 (9-20) mg/dL Creatinine 0.89 0.84 (0.66-1.25) mg/dL Glucose 92 84 (74-99) mg/dL Calcium 9.4 8.8 (8.4-10.2) mg/dL AST 43 (17-59) U/L ALT 33 (21-72) U/L Alkaline Phosphatase 63 (38-126) U/L Total Protein 7.3 (6.3-8.2) g/dL Albumin 4.2 (3.5-5.0) g/dL Current Medications Generic Name Dose Route Start Last Admin Trade Name Freq PRN Reason Stop Dose Admin Acetaminophen 500 mg 04/12/18 16:16 Tylenol Tab PO Q6HR PRN Fever and/ or MILD Pain Hydrocodone Bitart/Acetaminophen 1 each 04/12/18 20:50 04/13/18 05:40 [place] 5-325 PO 1 each Q4HR PRN Administration MODERATE Pain Alprazolam 0.25 mg 04/12/18 16:16 04/12/18 20:54 Xanax PO 0.25 mg TID PRN Administration Anxiety Heparin Sodium (Porcine) 5,000 unit 04/12/18 21:00 04/13/18 08:32 Heparin SQ 5,000 unit Q12HR SRIDHAR Administration Morphine Sulfate 4 mg 04/12/18 16:12 04/12/18 16:39 Morphine Sulfate (Inj) IVP 4 mg ONCE PRN Administration SEVERE Pain Morphine Sulfate 2 mg 04/12/18 23:07 Morphine Sulfate (Inj) IVP Q4HR PRN Moderate to Severe Pain Naloxone HCl 0.2 mg 04/12/18 16:43 Narcan IV Q2M PRN Opioid Reversal Naproxen 250 mg 04/12/18 16:14 Naprosyn PO BID PRN MILD Pain Pantoprazole Sodium 40 mg 04/13/18 07:30 04/13/18 08:32 Protonix PO 40 mg [id number] SRIDHAR Administration Temazepam 15 mg 04/12/18 16:16 04/12/18 20:54 Restoril PO 15 mg HS PRN Administration Insomnia Intake and Output 04/12/18 04/13/18 04/13/18 22:59 06:59 14:59 Intake Total 240 Output Total 450 Balance -450 240 Intake: Oral 240 Output: Urine 450 Other: Voiding Method Urinal Urinal # Voids 1 Weight 82.1 kg 04/12/18 15:30 04/13/18 05:15 EKG Interpretations (text) EKG shows a sinus bradycardia with heart rate in the 40s Assessment and Plan Plan: assessment and plan #1 symptoms of dizziness and lightheadedness with associated bradycardia. EKG shows a sinus bradycardia with heart rate in the 40s. Patient is not on any rate lowering medication. TSH normal. #2 straight of ischemic cardiomyopathy with prior documented ejection fraction of 30% by echo performed in June 2017 #3 known chronic total occlusion of the LAD #4 history of diabetes, patient states she has not taken insulin for quite some time after losing weight post surgery #5 hyperlipidemia, not on medications #6 hypertension, not on medications #7 history of noncompliance #8 prior history of smoking #9 anxiety and depression #10 sleep apnea Plan We will repeat an echocardiogram with Doppler study. We'll also obtain a fasting lipid profile. Patient has discontinued all medications he is on in the past, he is not currently on any rate lowering medications. EKG back in June showed a sinus bradycardia with a heart rate in the 40s as well. Further recommendations to follow. DNP note has been reviewed, I agree with a documented findings and plan of care. Patient was seen and examined.
[2018-04-13] MEDS: ALPRAZolam 0.25 MG TAB PO PRN ×2 (09:36→21:16)
[2018-04-13] MEDS: LOSARTAN 25 MG TAB PO SCH (11:51)
--- NOTE | 2018-04-13 15:54 | PN ---
PROGRESS NOTE DATE OF SERVICE: 04/13/2018. INTERVAL HISTORY: This 53-year-old gentleman was admitted with bradycardia, also had features of CHF also. Cardiology is following the patient closely. No chest pain. No palpitations. No fever. Losartan has been initiated. PHYSICAL EXAM: Alert and oriented x3. The pulse is 58, blood pressure 108/60, respiration 18, temperature 97.2, pulse ox 98% on room air. HEENT: Conjunctivae normal. Oral mucosa moist. NECK: No jugular venous distention. No carotid bruit. No lymph node enlargement. CARDIOVASCULAR: S1, S2. RESPIRATORY: Breath sounds diminished in the bases. A few rhonchi, no crackles. ABDOMEN: Soft, nontender. NERVOUS SYSTEM: No focal deficits. LEGS: No edema, no swelling. LABS: WBC 6, hemoglobin is 13. Otherwise, CMP within normal limits. UA noted. ASSESSMENT: 1. Bradycardia symptomatic for evaluation. 2. Dizziness. 3. Chronic pain syndrome. 4. History of coronary artery disease, occluded LAD and as well as failed attempted percutaneous transluminal angioplasty previously. 5. Ischemic cardiomyopathy, ejection fraction 30%. 6. Hypertension. 7. Degenerative joint disease. 8. History of chronic obstructive pulmonary disease. 9. Diabetes mellitus type 2. 10.Hypertension. 11.Hyperlipidemia. 12.History of myocardial infarction. 13.History of sleep apnea. 14.History of bariatric surgery. 15.History of attention deficit disorder, attention deficit hyperactivity disorder. 16.Anxiety, depression. RECOMMENDATIONS AND DISCUSSION: I recommend to continue current management and symptomatic treatment. Otherwise at this time I would recommend to continue the current medications and continue with Cozaar. Continue the rest of the medications. Prognosis guarded because of multiple complex medical issues. See orders for details. Further recommendations to follow. MMODL / IJN: [id number] /
[2018-04-14] MEDS: HYDROcodone/APAP 5-325MG 1 EACH TAB PO PRN ×3 (02:36→14:10)
[2018-04-14] MEDS: ALPRAZolam 0.25 MG TAB PO PRN (04:52)
[2018-04-14 07:51] LABS: Basophils % (A) 0 %; Eosinophils # (A) 0.1 k/uL (0-0.7); Eosinophils % (A) 2 %; HCT 37.9 % (39.0-53.0); HGB 12.4 gm/dL (13.0-17.5); Lymphocytes # (A) 1.7 k/uL (1.0-4.8); Lymphocytes % (A) 39 %; MCH 28.4 pg (25.0-35.0); MCHC 32.7 g/dL (31.0-37.0); Mean Platelet Volume 6.9; Monocytes # (A) 0.3 k/uL (0-1.0); Monocytes % (A) 7 %; Neutrophils # (A) 2.2 k/uL (1.3-7.7); Neutrophils % (A) 49 %; Platelet Count 219 k/uL (150-450); RBC 4.36 m/uL (4.30-5.90); RDW 14.1 % (11.5-15.5); WBC 4.5 k/uL (3.8-10.6)
[2018-04-14 07:57] LABS: Anion Gap 6 mmol/L; Blood Urea Nitrogen 15 mg/dL (9-20); Calcium 8.9 mg/dL (8.4-10.2); Carbon Dioxide 28 mmol/L (22-30); Chloride 106 mmol/L (98-107); Glucose 88 mg/dL (74-99); Potassium 4.5 mmol/L (3.5-5.1); Sodium 140 mmol/L (137-145)
[2018-04-14] MEDS: HEPARIN SODIUM,PORCINE 5,000 UNIT/ML 1 ML VIAL SQ SCH (08:17)
[2018-04-14] MEDS: PANTOPRAZOLE 40 MG TABLET PO SCH (08:17)
[2018-04-14] MEDS: LOSARTAN 25 MG TAB PO SCH (08:18)
[2018-04-14] MEDS ORDERED: ATORVASTATIN 40 MG TAB PO SCH (09:00)
[2018-04-14] MEDS ORDERED: SPIRONOLACTONE 25 MG TAB PO SCH (09:00)
[2018-04-14 10:16] VITALS: RESP 18; TEMP 96.9
--- NOTE | 2018-04-14 11:01 | P.PN ---
Subjective Progress Note Date: 04/14/18 This is a 53-year-old gentleman with history of prior diabetes, history of ischemic cardiomyopathy, history of chronic total occlusion of the LAD, hypertension, hyperlipidemia, he states that over the past 3 years after having sleep surgery, he lost approximately 300 pounds in weight. Since then he has not required any insulin, he only takes Aleve when necessary at home. Patient used to follow with Dr. German in the office, it appears that he has not had a follow-up there in quite some time, he had been on multiple medications in the past which he no longer has been taking any. History of noncompliance in the past. He did undergo a Lexiscan stress test in July 2017 which revealed 3 demonstrated findings suggesting a large anterior, anterior septal and apical infarction, fixed defects were slightly larger on that stress test as compared with the one prior to that. The last echocardiogram with Doppler study was performed in June 2017 which revealed an ejection fraction of 30-35%. The patient states that for the past few days she's been experiencing some symptoms of dizziness and lightheadedness and just overall feeling generally fatigued, he presented to the hospital from his doctor 's office, went there to be examined and it was noted that his heart rate was down in the 30s. His chest x-ray showed strandy right basilar atelectasis otherwise no acute cardiopulmonary process. Let pressure on admission here 150/ 80 with a heart rate of 40, 99% on room air. Blood pressure this morning is 110 /70, heart rate 46, 98% on room air. CBC is normal, sodium 139, potassium 4.3, BUN 15, creatinine 0.8. Troponin 0.013. TSH 1.3. Magnesium level 2.0. Toxicology positive for opiates and oxycodone. At the time of my examination, patient complains of just feeling tired, no other complaints. Heart rate 42. EKG shows a marked sinus bradycardia with T wave inversion in the lateral leads. EKG from July of this year also shows a marked sinus bradycardia with a heart rate in the 40s similar changes. 04/14/2018 Patient was seen and examined this morning, denies any chest discomfort in breathing overall is stable. Blood pressure 118/60 with a heart rate of 48-52. White blood cell count 4.5, hemoglobin 12.4, platelet count 219, sodium 140, potassium 4.5, BUN 15, creatinine 0.9. Patient was initiated on losartan and Aldactone yesterday, he is not on a beta boroke because of bradycardia. Patient was encouraged regarding the importance of taking his medications regularly. We will await results of echocardiogram with Doppler study. We will make the patient a follow-up appointment in the office which he has been encouraged to keep. If patient continues to have a reduced LV function he may require implantation of AICD down the road, it was explained to the patient that he is at increased risk for sudden cardiac based on his cardiomyopathy. Objective - Vital Signs Vital signs: Vital Signs Temp 96.9 F L 04/14/18 08:00 Pulse 47 L 04/14/18 08:00 Resp 18 04/14/18 08:00 BP 118/69 04/14/18 08:00 Pulse Ox 100 04/14/18 08:00 Intake & Output 04/13/18 04/14/18 04/14/18 18:59 06:59 18:59 Intake Total 1020 720 240 Balance 1020 720 240 Weight 81.4 kg Intake: Oral 1020 720 240 Other: Voiding Method Urinal Toilet Toilet Urinal Urinal # Voids 3 3 - Exam PHYSICAL EXAMINATION: GENERAL: 53-year-old gentleman in no apparent distress at the time of my examination HEENT: Head is atraumatic, normocephalic. Pupils equal, round. Sclera anicteric. Conjunctiva are clear. Mucous membranes of the mouth are moist. Neck is supple. There is no elevated jugular venous pressure. No carotid bruit is heard. HEART EXAMINATION: Heart S1, S2 systolic ejection murmur heard at the base . CHEST EXAMINATION: Lungs are clear to auscultation and precussion. No chest wall tenderness is noted on palpation or with deep breathing. ABDOMEN: Soft, nontender. Bowel sounds are heard. No organomegaly noted. EXTREMITIES: 2+ peripheral pulses with trace evidence of peripheral edema and no calf tenderness noted. NEUROLOGIC patient is awake, alert and oriented X3. - Labs CBC & Chem 7: 04/14/18 07:14 04/14/18 07:14 Labs: Abnormal Lab Results - Last 24 Hours (Table) 04/14/18 Range/Units 07:14 Hgb 12.4 L (13.0-17.5) gm/dL Hct 37.9 L (39.0-53.0) % Assessment and Plan Plan: assessment and plan #1 symptoms of dizziness and lightheadedness with associated bradycardia. EKG shows a sinus bradycardia with heart rate in the 40s. Patient is not on any rate lowering medication. TSH normal. #2 straight of ischemic cardiomyopathy with prior documented ejection fraction of 30% by echo performed in June 2017 #3 known chronic total occlusion of the LAD #4 history of diabetes, patient states she has not taken insulin for quite some time after losing weight post surgery #5 hyperlipidemia, not on medications #6 hypertension, not on medications #7 history of noncompliance #8 prior history of smoking #9 anxiety and depression #10 sleep apnea Plan We will review the echocardiogram with Doppler study, we will also continue the patient on losartan and Aldactone, he is not on a beta brooke at this time because of bradycardia. Patient has been encouraged strongly regarding compliance of taking his medications, continues to have a significantly reduced LV function he may benefit from implantation of AICD down the road, he is aware that his risks sudden cardiac is increased based on his ischemic cardiomyopathy. He may be able to be discharged after the echo was reviewed once cleared by primary, a follow-up appointment and will be made in the office with Dr. German post discharge. DNP note has been reviewed, I agree with a documented findings and plan of care. Patient was seen and examined.
--- NOTE | 2018-04-14 11:28 | ECHOF ---
Referral Reason:Stroke MEASUREMENTS -------- HEIGHT: 170.2 cm WEIGHT: 81.7 kg BP: IVSd: 1.2 cm (0.6 - 1.1) LVIDd: 4.6 cm (3.9 - 5.3) LVPWd: 1.1 cm (0.6 - 1.1) IVSs: 1.5 cm LVIDs: 3.7 cm LVPWs: 1.4 cm LAESV Index (A-L): 26.26 ml/m Ao Diam: 2.7 cm (2.0 - 3.7) AV Cusp: 2.0 cm (1.5 - 2.6) LA Diam: 4.1 cm (2.7 - 3.8) MV EXCURSION: 8.330 mm (> 18.000) MV EF SLOPE: 55 mm/s (70 - 150) EPSS: 0.7 cm MV E Brain: 1.40 m/s MV DecT: 280 ms MV A Brain: 0.52 m/s MV E/A Ratio: 2.68 RAP: 15.00 mmHg RVSP: 19.06 mmHg FINDINGS -------- Resting bradycardia (HR<60bpm). This was a technically good study. The left ventricular size is normal. There is mild concentric left ventricular hypertrophy. Overa ll left ventricular systolic function is moderately impaired with, an EF between 35 - 40 %. Restric tive LV filling pattern, consistent with elevated LA pressure 23.77. Mid anterior LV wall motion i s hypokinetic. Apical anterior LV wall motion is hypokinetic. Apical inferior LV wall motion is hypokinetic. Apical septum LV wall motion is hypokinetic. The right ventricle is normal in size and function. Normal LA size by volume 22+/-6 ml/m2. The right atrium is normal in size. The aortic valve is trileaflet, and appears structurally normal. No aortic stenosis or regurgitation. Mild mitral regurgitation is present. Mild tricuspid regurgitation present. The right ventricular systolic pressure, as measured by Doppl er, is 19.06mmHg. Pulmonic valve appears structurally normal. The aortic root size is normal. The inferior vena cava is mildly dilated. The pericardium is normal. CONCLUSIONS -------- 1. Resting bradycardia (HR<60bpm). 2. This was a technically good study. 3. The left ventricular size is normal. 4. There is mild concentric left ventricular hypertrophy. 5. Overall left ventricular systolic function is moderately impaired with, an EF between 35 - 40 %. 6. Restrictive LV filling pattern, consistent with elevated LA pressure 23.77. 7. Mid anterior LV wall motion is hypokinetic. 8. Apical anterior LV wall motion is hypokinetic. 9. Apical inferior LV wall motion is hypokinetic. 10. Apical septum LV wall motion is hypokinetic. 11. The right ventricle is normal in size and function. 12. Normal LA size by volume 22+/-6 ml/m2. 13. The right atrium is normal in size. 14. The aortic valve is trileaflet, and appears structurally normal. No aortic stenosis or regurgitat ion. 15. Mild mitral regurgitation is present. 16. Mild tricuspid regurgitation present. 17. The right ventricular systolic pressure, as measured by Doppler, is 19.06mmHg. 18. Pulmonic valve appears structurally normal. 19. The aortic root size is normal. 20. The inferior vena cava is mildly dilated. 21. The pericardium is normal. ENGINEERING WRITER: Emeli Sharpe RDCS
[2018-04-14 13:51] VITALS: BP 106/70; PULSE 42
--- NOTE | 2018-04-14 22:10 | DS ---
DISCHARGE SUMMARY FINAL DIAGNOSIS: 1. Symptomatic bradycardia, stable, sinus bradycardia. 2. Dizziness. 3. Chronic pain syndrome. 4. History of coronary artery disease, occlude LAD as well as failed two percutaneous stents, PTCA previously. 5. Ischemic cardiomyopathy with chronic systolic dysfunction, ejection fraction 30%. 6. Hypertension. 7. Degenerative joint disease. 8. History of chronic obstructive pulmonary disease. 9. Chronic pain syndrome. 10.Diabetes type 2. 11.Hypertension. 12.Hyperlipidemia. 13.History of myocardial infarction. 14.History of degenerative joint disease. 15.History of sleep apnea. 16.History of bariatric surgery. 17.History of attention-deficit disorder/attention-deficit/hyperactivity disorder. 18.History of anxiety, depression. DISCHARGE DISPOSITION: The patient will be discharged in stable condition with guarded prognosis. HISTORY OF PRESENT ILLNESS: This 53-year-old gentleman with a past medical history of multiple medical problems being followed by Dr. Susanne Gamino in the outpatient setting admitted to the hospital with symptomatic bradycardia, dizziness and multiple other medical issues, treated symptomatically. Cardiology saw the patient and the patient improved significantly. Medications were adjusted. On exam, vitals are stable. Cardiovascular: S1, S2. Abdomen soft. Central nervous system: No focal deficits. Heart rate is still at 42, however. Cardiology recommended outpatient followup and also recommend outpatient followup with pain management as well. DISCHARGE ADVICE AND MEDICATIONS: 1. Discharge diet is cardiac diet. 2. Activity limited until follow. 3. Follow up with Dr. Susanne Gamino in 2 to 3 days. 4. Follow up with Cardiology as advised. 5. Followup with pain management as recommended. MEDICATION: 1. Aleve 220 mg p.o. b.i.d. 2. Tylenol 500 mg q.6h p.r.n. 3. Lipitor 40 mg p.o. daily. 4. Scenic 5 mg q.6h p.r.n. 5. Cozaar 12.5 mg daily. 6. Aldactone 12.5 mg p.o. daily. CBC BMP with Dr. Susanne Gamino. Once again the patient is being discharged in stable condition with guarded prognosis. MMODL / IJN: [id number] /
== END 2018-04-14 16:23 | disposition home or self-care (01) ==
LOC: EC 14:56 → 6SEL 16:43
PROVIDERS: ADMIT Hospitalist; ATTEND Hospitalist
DX: R00.1 Bradycardia, unspecified (principal); R42 Dizziness and giddiness; G89.4 Chronic pain syndrome; I25.10 Atherosclerotic heart disease of native coronary artery without angina pectoris; Z95.5 Presence of coronary angioplasty implant and graft; I25.5 Ischemic cardiomyopathy; I50.9 Heart failure, unspecified; I11.0 Hypertensive heart disease with heart failure; M19.90 Unspecified osteoarthritis, unspecified site; J44.9 Chronic obstructive pulmonary disease, unspecified; E11.51 Type 2 diabetes mellitus with diabetic peripheral angiopathy without gangrene; E78.5 Hyperlipidemia, unspecified; I25.2 Old myocardial infarction; G47.30 Sleep apnea, unspecified; Z98.84 Bariatric surgery status; F90.9 Attention-deficit hyperactivity disorder, unspecified type; F41.9 Anxiety disorder, unspecified; F32.9 Major depressive disorder, single episode, unspecified; M25.561 Pain in right knee; M25.551 Pain in right hip; I25.82 Chronic total occlusion of coronary artery; Z91.19 Patient's noncompliance with other medical treatment and regimen; Z88.5 Allergy status to narcotic agent; Z87.01 Personal history of pneumonia (recurrent); Z87.891 Personal history of nicotine dependence
CPT/HCPCS: 99285; 96374 ×2; 96372 ×3; 36415; 93005; 93306; 80053; 80048 ×2; 82550; 82553; 83735; 84443; 84484; 85025 ×2; 85610; 85730; 81003; 80306; 71046; G0378 ×3; J2270; J1644 ×3

== ENCOUNTER → 2018-04-17 | Outpatient (CLI) | payer MEDICARE, OTHER ==
[2018-04-17 15:01] LABS: Basophils % (A) 1 %; Eosinophils % (A) 1 %; HCT 38.5 % (39.0-53.0); HGB 12.4 gm/dL (13.0-17.5); Lymphocytes # (A) 1.8 k/uL (1.0-4.8); Lymphocytes % (A) 37 %; MCH 28.2 pg (25.0-35.0); MCHC 32.3 g/dL (31.0-37.0); MCV 87.3 fL (80.0-100.0); Mean Platelet Volume 6.9; Monocytes # (A) 0.3 k/uL (0-1.0); Monocytes % (A) 6 %; Neutrophils # (A) 2.6 k/uL (1.3-7.7); Neutrophils % (A) 54 %; Platelet Count 226 k/uL (150-450); RBC 4.41 m/uL (4.30-5.90); RDW 14.1 % (11.5-15.5); WBC 4.8 k/uL (3.8-10.6)
[2018-04-17 15:48] LABS: Anion Gap 8 mmol/L; Blood Urea Nitrogen 22 mg/dL (9-20); Calcium 9.4 mg/dL (8.4-10.2); Carbon Dioxide 25 mmol/L (22-30); Chloride 107 mmol/L (98-107); Glucose 128 mg/dL (74-99); Potassium 4.3 mmol/L (3.5-5.1); Sodium 140 mmol/L (137-145)
== END | disposition home or self-care (01) ==
LOC: LABWHC1 14:41
PROVIDERS: ATTEND Hospitalist
DX: I50.9 Heart failure, unspecified (principal)
CPT/HCPCS: 36415; 80048; 85025

== ENCOUNTER → 2018-06-18 | Outpatient (CLI) | payer MEDICARE, OTHER ==
[2018-06-18 13:56] VITALS: BP 123/81; PULSE 52; TEMP 98.2; BMI 29.1
--- NOTE | 2018-06-18 15:37 | P.HPBAR ---
Bariatric H&P - History & Physicial H&P Date: 06/18/18 History & Physicial: Visit/CC: two year follow up Patient initial contact: Initial weight: 181.709 kg Initial weight in pounds: 400.60 Height: 5 ft 7.5 in Initial BMI: 61.8 Last weight: Current weight: 85.729 kg Current weight in pounds: 189.00 Current BMI: 29.1 [place] body weight (based on NIH guidelines): 68.492 kg Excess body weight loss: 84.7% The patient is a 53 year-old M who presents for Bariatric Assessment. The patient presents today for sleeve gastrectomy follow-up. He is at some minimal GERD. She denies any other significant problems. He is an excellent weight loss. Past Medical History Past Medical History: Coronary Artery Disease (CAD), Chest Pain / Angina, Heart Failure, COPD, Diabetes Mellitus, GERD/Reflux, Hyperlipidemia, Hypertension, Myocardial Infarction ([place]), Osteoarthritis (OA), Pneumonia, Renal Disease, Skin Disorder, Sleep Apnea/CPAP/BIPAP, Vascular Disorder Additional Past Medical History / Comment(s): HX OF [place] X2 (DATE UNKNOWN), CARDIOMYOPATHY, RESP FAILURE, djd, NO C-PAP. PNEUMONIA 06/2014. PVD.adhd Last Myocardial Infarction Date:: UNKNOWN History of Any Multi-Drug Resistant Organisms: None Reported Past Surgical History: Bariatric Surgery, Heart Catheterization, Hernia Repair, Orthopedic Surgery Additional Past Surgical History / Comment(s): ATTEMPTED HEART CATH, VESSELS TOO SMALL 2012,. RT KNEE TENDON REPAIR. . UMBILICAL HERNIA REPAIR. EGD . gastric sleeve 09/14 Past Anesthesia/Blood Transfusion Reactions: No Reported Reaction Past Psychological History: ADD/ADHD, Anxiety, Depression Additional Psychological History / Comment(s): ADHD. Smoking Status: Former smoker Past Alcohol Use History: Heavy Additional Past Alcohol Use History / Comment(s): started smoking 1985 and quit 2012 was smoking 1.5-2 ppd, past heavy drinking (quit heavy drinking 2001), no has a rare beer. Past Drug Use History: None Reported - Past Family History Father Family Medical History: Chest Pain / Angina, Congestive Heart Failure (CHF), COPD Mother Family Medical History: Diabetes Mellitus, GERD/Reflux Surgical - Exam Vital Signs Temp Pulse BP 98.2 F 52 L 123/81 06/18/18 13:52 06/18/18 13:52 06/18/18 13:52 - General well developed, no distress - Eyes PERRL - ENT normal pinna - Neck no masses - Respiratory normal expansion - Cardiovascular Rhythm: regular - Abdomen Abdomen: soft, non tender Bariatric Assessment & Plan Plan: Status post sleeve gastrectomy. Patient is doing quite well. He's had some minimal GERD which was observed. Per the patient his PCP was to have him scheduled for EGD and colonoscopy. Bariatric Checklist Checklist: Plan: Checklist: EGD: 1. Hiatal hernia: 2. H. Pylori: HgbA1c: Vitamin D: Smoking: Former smoker Primary care physician referral: none ( Psychiatry clearance: Cardiology clearance: Sleep study: Diet journal: VTE risk score: VTE risk level: Rehab needs at discharge:
== END ==
LOC: BARWHC3 13:01
PROVIDERS: ATTEND Surgery
DX: Z48.815 Encounter for surgical aftercare following surgery on the digestive system (principal); Z87.891 Personal history of nicotine dependence; Z98.84 Bariatric surgery status
CPT/HCPCS: 99211

== ENCOUNTER 2018-08-14 07:11 | Day surgery (SDC) | payer MEDICARE, OTHER ==
[2018-08-09 11:39] VITALS: BMI 29.0
[~2018-08-14 07:11] MED LIST: LACTATED RINGERS 1,000 ML IV SCH; LIDOCAINE 1% 20 ML VIAL (10MG/ML) FOR IV START INTRADERMA PRN
[2018-08-14 07:23] VITALS: RESP 16; TEMP 97.7
[2018-08-14 07:29] LABS: Glucose,Whole Blood 92 mg/dL (75-99)
[2018-08-14] MEDS ORDERED: MIDAZOLAM 2 MG/2 ML VIAL ONE (07:48)
[2018-08-14] MEDS ORDERED: fentaNYL (PF) 50 MCG/ML 2 ML AMP ONE (07:48)
[2018-08-14] MEDS ORDERED: PROPOFOL 10 MG/ML 20 ML VIAL IV ONE (07:48)
--- NOTE | 2018-08-14 07:50 | P.GSHP ---
History of Present Illness H&P Date: 08/14/18 Chief Complaint: GI bleed This is a 53-year-old male referred from Dr. Gamino. Patient's had issues with rectal bleeding. Presents today for colonoscopy and EGD. Patient's previous history of gastric sleeve. Surgical - Exam - General well developed, well nourished, no distress - Eyes PERRL - ENT normal pinna - Neck no masses - Respiratory normal expansion - Cardiovascular Rhythm: regular - Abdomen Abdomen: soft, non tender Assessment and Plan Assessment: History of GI bleed. We'll perform EGD and colonoscopy.
--- NOTE | 2018-08-14 08:14 | P.OP ---
Date of Procedure: 08/14/18 Preoperative Diagnosis: GI bleed Postoperative Diagnosis: Antral gastritis Esophagitis Procedure(s) Performed: EGD Colonoscopy Anesthesia: MAC Surgeon: Damian Giron Pathology: other (Antrum, esophagus) Condition: stable Disposition: PACU Description of Procedure: The patient's placed on the endoscopy table in the lateral position. He received IV sedation. The gastroscope placed oropharynx and passed in the esophagus into the stomach. Scope was then placed through the pylorus. The first and second portion of duodenum appeared normal. The scope was then brought back the antrum and there some minimal gastritis. The scope was then brought back through the gastric sleeve and this appeared normal. At the level of the GE junction there was evidence of esophagitis. This area is best. The proximal esophagus appeared normal. The scope was withdrawn for patient. Next digital rectal exam was performed. Revealed no abnormalities. The prostate was symmetrical without nodules. The colonoscope was placed in patient 's anus passed throughout the entire colon. The ileocecal valve was visualized. The cecum, ascending and transverse colon appeared normal. The scope was then brought back in the descending and sigmoid colon there is extensive diverticular changes. The scope was then brought back and the rectum and this appeared normal. Scope was withdrawn for patient.
[2018-08-14 08:41] VITALS: BP 164/90; PULSE 45
== END 2018-08-14 09:06 | disposition home or self-care (01) ==
LOC: ORWHC2ENDO 07:11
PROVIDERS: ATTEND Surgery
DX: K29.50 Unspecified chronic gastritis without bleeding (principal); K57.30 Diverticulosis of large intestine without perforation or abscess without bleeding; Z98.84 Bariatric surgery status; G47.33 Obstructive sleep apnea (adult) (pediatric); I25.2 Old myocardial infarction; I11.0 Hypertensive heart disease with heart failure; I50.9 Heart failure, unspecified; I25.10 Atherosclerotic heart disease of native coronary artery without angina pectoris; E78.5 Hyperlipidemia, unspecified; E11.9 Type 2 diabetes mellitus without complications; Z79.82 Long term (current) use of aspirin; Z79.891 Long term (current) use of opiate analgesic; Z79.899 Other long term (current) drug therapy
CPT/HCPCS: 88305; 88312; 45378; 43239; J2250; J3010; J2704

== ENCOUNTER → 2018-08-27 | Outpatient (CLI) | payer MEDICARE, OTHER ==
[2018-08-27 13:19] VITALS: BP 150/89; PULSE 71; TEMP 97.7; BMI 29.6
--- NOTE | 2018-08-27 13:21 | P.HPBAR ---
Bariatric H&P - History & Physicial H&P Date: 08/27/18 History & Physicial: Visit/CC: follow up visit Patient initial contact: Initial weight: 181.709 kg Initial weight in pounds: 400.60 Height: 5 ft 7 in Initial BMI: 62.7 Last weight: Current weight: 85.729 kg Current weight in pounds: 189.00 Current BMI: 29.6 [place] body weight (based on NIH guidelines): 67.132 kg Excess body weight loss: 83.7% The patient is a 53 year-old M who presents for Bariatric Assessment. Patient presents today for bariatric follow-up. He's had some GERD and complaints of arthritis of his knee and hip. Past Medical History Past Medical History: Coronary Artery Disease (CAD), Chest Pain / Angina, Heart Failure, Diabetes Mellitus, GERD/Reflux, Hyperlipidemia, Hypertension, Myocardial Infarction (MS), Osteoarthritis (OA), Pneumonia, Renal Disease, Skin Disorder, Sleep Apnea/CPAP/BIPAP, Vascular Disorder Additional Past Medical History / Comment(s): HX OF MS X2 (DATE UNKNOWN), CARDIOMYOPATHY, RESP FAILURE, djd, NO C-PAP. PNEUMONIA 06/2014. PVD,diet controlled diabetes, RASH TO SKIN FOLDS Last Myocardial Infarction Date:: UNKNOWN History of Any Multi-Drug Resistant Organisms: None Reported Past Surgical History: Bariatric Surgery, Heart Catheterization, Hernia Repair, Orthopedic Surgery Additional Past Surgical History / Comment(s): HEART ONLY WORKS AT 35% PER PT. ATTEMPTED HEART CATH, VESSELS TOO SMALL 2012,. RT KNEE TENDON REPAIR. . UMBILICAL HERNIA REPAIR. EGD 08/28/14. gastric sleeve 09/14 Past Anesthesia/Blood Transfusion Reactions: No Reported Reaction Past Psychological History: ADD/ADHD, Anxiety, Depression Additional Psychological History / Comment(s): ADHD. Smoking Status: Former smoker Past Alcohol Use History: Rare Additional Past Alcohol Use History / Comment(s): started smoking 1985 and quit 2012 was smoking 1.5-2 ppd, past heavy drinking (quit heavy drinking 2001)HAS BEER ON RARE OCCASION Past Drug Use History: None Reported - Past Family History Father Family Medical History: Chest Pain / Angina, Congestive Heart Failure (CHF), COPD Mother Family Medical History: Diabetes Mellitus, GERD/Reflux Surgical - Exam Vital Signs Temp Pulse BP 97.7 F 71 150/89 08/27/18 13:14 08/27/18 13:14 08/27/18 13:14 - General well developed, well nourished, no distress - Eyes PERRL - ENT normal pinna - Neck no masses - Respiratory normal expansion - Cardiovascular Rhythm: regular - Abdomen Abdomen: soft, non tender Bariatric Assessment & Plan Plan: Status post sleeve gastrectomy for treatment of morbid obesity. Patient's weight loss has been excellent. He has lost approximately 230 pounds. His GERD which revealed with omeprazole. He will follow-up with orthopedics for his arthritis. Bariatric Checklist Checklist: Plan: Checklist: EGD: 1. Hiatal hernia: 2. H. Pylori: HgbA1c: Vitamin D: Smoking: Former smoker Primary care physician referral: none ( Psychiatry clearance: Cardiology clearance: Sleep study: Diet journal: VTE risk score: VTE risk level: Rehab needs at discharge:
== END | disposition home or self-care (01) ==
LOC: BARWHC3 12:43
PROVIDERS: ATTEND Surgery
DX: Z48.815 Encounter for surgical aftercare following surgery on the digestive system (principal); E66.01 Morbid (severe) obesity due to excess calories; Z68.29 Body mass index [BMI] 29.0-29.9, adult; Z87.891 Personal history of nicotine dependence; Z98.84 Bariatric surgery status
CPT/HCPCS: 99211

== ENCOUNTER 2018-09-10 06:06 | Day surgery (SDC) | payer MEDICARE, OTHER ==
[~2018-09-10 06:06] MED LIST changes: -LIDOCAINE 1% 20 ML VIAL (10MG/ML) FOR IV START INTRADERMA PRN
[2018-09-10] MEDS ORDERED: SODIUM CHLORIDE 0.9% 1,000 ML IV SCH (06:30)
[2018-09-10] MEDS ORDERED: ceFAZolin IN SWFI 2 GM/20 ML SYRINGE IVP ONE (06:30)
[2018-09-10] MEDS ORDERED: ceFAZolin 1,000 MG in SODIUM CHLORIDE 0.9% IRRIGATIO 250 ML IRRIGATION ONE (06:30)
[2018-09-10 07:16] LABS: Glucose,Whole Blood 88 mg/dL (75-99)
[2018-09-10] MEDS ORDERED: MIDAZOLAM 2 MG/2 ML VIAL ONE (07:20)
[2018-09-10] MEDS ORDERED: KETAMINE 10 MG/ML 20 ML VIAL ONE (07:20)
[2018-09-10] MEDS ORDERED: PROPOFOL 10 MG/ML 20 ML VIAL IV ONE (07:20)
[2018-09-10] MEDS ORDERED: IOPAMIDOL-250 50ML BTL IV ONE (07:42)
[2018-09-10] MEDS ORDERED: LIDOCAINE 1% INJ 10MG/ML (20 ML MDV) ONE ×2 (07:43→07:44)
[2018-09-10] MEDS ORDERED: LIDOCAINE 1% INJ 10MG/ML (20 ML MDV) SQ ONE ×2 (08:07→08:35)
[2018-09-10] MEDS ORDERED: SODIUM CHLORIDE 0.9% 500 ML 500 ML IV ONE (08:34)
[2018-09-10 10:28] VITALS: BMI 30.4
[2018-09-10] MEDS ORDERED: HYDROcodone/APAP 7.5-325MG 1 EACH TAB PO ONE (11:09)
[2018-09-10] MEDS: METOPROLOL SUCCINATE (ER) 25 MG TAB.ER.24H PO SCH (11:23)
[2018-09-10] MEDS: HYDROmorphone 1 MG/ML 1 ML SYRINGE IVP PRN ×2 (13:51→20:06)
[2018-09-10] MEDS: ceFAZolin IN SWFI 2 GM/20 ML SYRINGE IVP SCH ×2 (13:51→20:07)
[2018-09-10] MEDS: ACETAMINOPHEN TAB 325 MG TAB PO PRN ×2 (16:20→23:05)
[2018-09-10] MEDS: HYDROcodone/APAP 7.5-325MG 1 EACH TAB PO PRN (17:47)
[2018-09-10] MEDS: LISINOPRIL 2.5 MG TAB PO SCH (17:48)
[2018-09-11] MEDS: HYDROcodone/APAP 7.5-325MG 1 EACH TAB PO PRN ×2 (00:06→06:25)
[2018-09-11] MEDS: ceFAZolin IN SWFI 2 GM/20 ML SYRINGE IVP SCH ×2 (02:00→07:51)
[2018-09-11] MEDS: HYDROmorphone 1 MG/ML 1 ML SYRINGE IVP PRN (02:34)
[2018-09-11 07:24] LABS: Anion Gap 6 mmol/L; Blood Urea Nitrogen 18 mg/dL (9-20); Calcium 8.8 mg/dL (8.4-10.2); Carbon Dioxide 26 mmol/L (22-30); Chloride 108 mmol/L (98-107); Glucose 92 mg/dL (74-99); Potassium 4.5 mmol/L (3.5-5.1); Sodium 140 mmol/L (137-145)
[2018-09-11] MEDS ORDERED: PANTOPRAZOLE 40 MG TABLET PO SCH (07:30)
[2018-09-11 07:32] LABS: Basophils % (A) 1 %; Eosinophils # (A) 0.2 k/uL (0-0.7); Eosinophils % (A) 4 %; HCT 40.8 % (39.0-53.0); HGB 13.1 gm/dL (13.0-17.5); Lymphocytes # (A) 1.4 k/uL (1.0-4.8); Lymphocytes % (A) 24 %; MCH 29.1 pg (25.0-35.0); MCHC 32.2 g/dL (31.0-37.0); MCV 90.2 fL (80.0-100.0); Mean Platelet Volume 7.1; Monocytes # (A) 0.4 k/uL (0-1.0); Monocytes % (A) 7 %; Neutrophils # (A) 3.7 k/uL (1.3-7.7); Neutrophils % (A) 64 %; Platelet Count 183 k/uL (150-450); RBC 4.52 m/uL (4.30-5.90); RDW 13.2 % (11.5-15.5); WBC 5.8 k/uL (3.8-10.6)
[2018-09-11 07:41] VITALS: BP 145/92; PULSE 56; RESP 18; TEMP 98.2
[2018-09-11] MEDS: LISINOPRIL 2.5 MG TAB PO SCH (07:51)
[2018-09-11] MEDS: METOPROLOL SUCCINATE (ER) 25 MG TAB.ER.24H PO SCH (07:51)
--- NOTE | 2018-09-11 08:41 | XR ---
EXAMINATION TYPE: XR chest 2V DATE OF EXAM: 09/11/2018 COMPARISON: 04/12/2018 HISTORY: 53-year-old male being placement check TECHNIQUE: PA and lateral views FINDINGS: Left anterior chest wall AICD generator with right atrial and right ventricular leads. Heart upper li mits of normal in size. Aorta within normal limits. No consolidation or pleural effusion. Some strand y right basilar atelectasis. Slight bilateral hilar fullness. IMPRESSION: 1. Left-sided AICD generator with 2 leads. No pneumothorax. 2. Some subtle bilateral hilar fullness could be projectional. Consider short interval follow-up. If the finding persists, contrast-enhanced CT chest can be considered
[2018-09-11] MEDS ORDERED: SPIRONOLACTONE 25 MG TAB PO SCH (09:00)
[2018-09-11] MEDS ORDERED: ASPIRIN 81 MG PO SCH (09:00)
[2018-09-11] MEDS ORDERED: ATORVASTATIN 40 MG TAB PO SCH (09:00)
--- NOTE | 2018-09-11 09:48 | P.DS ---
Providers Attending physician: Socrates Red Primary care physician: [facility] Course: Patient is doing well. Mild discomfort over the pacemaker/defibrillator site. The site. Minimal swelling no oozing no bleeding Normal heart sounds Normal breath sounds No rhonchi no crackles No rub no gallop Abdomen is soft nontender Extremities warm no edema He denies any chest discomfort dizziness lightheadedness. His back is sore I encouraged him to get up and walk around If his chest x-ray is within normal limits , device interrogation within normal limits, he may go home after completion of his antibiotics and follow-up with Dr. Salazar within a week in the device clinic in 5 days Final impression Sick sinus syndrome sinus bradycardia Cardiomyopathy, on guideline directed medical treatment Congestive heart failure with reduced systolic function Status post dual-chamber ICD for primary prevention of sudden cardiac Plan - Discharge Summary Discharge Rx Participant: No New Discharge Prescriptions: New RX: Lisinopril [Zestril] 2.5 mg PO DAILY #90 tab RX: Metoprolol Succinate (ER) [Toprol XL] 25 mg PO DAILY #90 tab RX: Spironolactone [Aldactone] 25 mg PO DAILY #90 tablet No Action RX: Atorvastatin [Lipitor] 40 mg PO DAILY #30 tab HYDROcodone/APAP 7.5-325MG [[place] 7.5-325] 1 tab PO Q6HR PRN PRN Reason: Pain Aspirin EC [Ecotrin Low Dose] 81 mg PO DAILY RX: Omeprazole 40 mg PO DAILY #60 capsule. Discharge Medication List RX: Atorvastatin [Lipitor] 40 mg PO DAILY #30 tab 04/14/18 [Rx] Aspirin EC [Ecotrin Low Dose] 81 mg PO DAILY 08/09/18 [History] HYDROcodone/APAP 7.5-325MG [[place] 7.5-325] 1 tab PO Q6HR PRN 08/09/18 [History] RX: Omeprazole 40 mg PO DAILY #60 capsule. 08/27/18 [Rx] RX: Lisinopril [Zestril] 2.5 mg PO DAILY #90 tab 09/10/18 [Rx] RX: Metoprolol Succinate (ER) [Toprol XL] 25 mg PO DAILY #90 tab 09/10/18 [Rx] RX: Spironolactone [Aldactone] 25 mg PO DAILY #90 tablet 09/10/18 [Rx] Follow up Appointment(s)/Referral(s): Robby Salazar MD [STAFF PHYSICIAN] - 1 Week (Device clinic follow-up in 5 days and follow up with Dr. Salazar as previously scheduled) Activity/Diet/Wound Care/Special Instructions: PATIENT EDUCATION MATERIAL Instructions following a heart rhythm device implant. 1. Keep dressing DRY for 5 DAYS. You may cover the area with Saran or Cling Wrap, prior to a shower. 2. The dressing will be removed in the Device Clinic at [facility]. Absorbable sutures were used to close the wound. 3. Avoid raising the left arm above the shoulder level. 4 week restriction 4. Avoid arm movements, like backscratching, rubbing the head, or pulling on a cord. 4 weeks restriction 5. Gentle range of motion movements of the shoulder, closest to the incision should be performed to avoid a frozen shoulder. (Pendulum exercises of the shoulder) 6. The opposite arm may be used freely. 7. Avoid driving for 7 days. 8. Avoid activities such as golfing, swimming, weed whacking, lifting more than 10 pounds weight, bowling, gymnastics and weight training/lifting. (6 weeks restriction) 9. Activities such as wood chopping with an axe, pull-ups in the gymnasium, power lifting, arc-welding, being close to home induction cooktops will always be a problem. 10. Arm sling is only a reminder not to raise the arm above the head. You do not need to keep the arm completely immobilized. Your free to move the arm and use it and for normal activities. In case of any problems, please call [facility] [place], @ [phone], Attention: Device Clinic Device clinic follow-up in 5 days Follow-up with primary fire hydrant mechanic in 2-3 months Restart metoprolol now after dual-chamber ICD implantation Metoprolol was held on account of severe resting bradycardia Continue aspirin statins lisinopril spironolactone Discharge Disposition: HOME SELF-CARE
--- NOTE | 2018-10-17 07:57 | CE ---
CARDIAC ELECTROPHYSIOLOGY REPORT Delroy Francisco is a patient of of Dr. Salazar who has severe cardiomyopathy and sick sinus syndrome. He is brought in for dual-chamber ICD implant for primary prevention of sudden cardiac . Patient was brought to the EP lab in a fasting state. Written informed consent was obtained prior to the procedure. The left shoulder area was prepped and draped as per protocol and 1% lidocaine was used for local anesthesia. A 4 cm incision was made parallel to the deltopectoral groove, about 1.5 cm medial to it. The incision was carried down to the level of the pectoralis muscle. A subfascial pocket was made. Hemostasis was assured. The left axillary vein was accessed at 2 separate points under fluoroscopy and via appropriately-sized introducer sheaths 2 leads were positioned the right heart. The atrial lead was a 52 cm tendril STS 2088TC, 52 cm in length and serial # [id number]. This was screwed in the right atrial appendage. P waves of 0.4 V at 0.5 milliseconds. P waves 2.7 mV. Pacing impedance 460 ohms. The RV lead was [employer] model #[id number], 58 cm in length and serial #[id number]. This lead was positioned in the right ventricle. The R-waves 11.8 mV. Pacing threshold 0.8 V at 0.5 milliseconds. Pacing impedance of 440 ohms. Ten volt test negative. High-voltage impedance was 50 ohms from RV was connected. This was a [employer], [address] 2411-36Q, serial #[id number]. Lead and the generator were then placed in subfascial pocket. The wound was closed in 3 layers and dressed per protocol. RESULTS: Successful dual chamber ICD implantation for sick sinus syndrome and severe cardiomyopathy with congestive heart failure. PLAN: Maximize heart failure medications. MMODL / IJN: [id number] /
== END 2018-09-11 11:31 | disposition home or self-care (01) ==
LOC: CATHEP 06:06 → 1SOBS 09:14 → CATHEP 09-11 11:31
PROVIDERS: ATTEND Internal Medicine Clinical Cardiac Electrophysiology
DX: I25.5 Ischemic cardiomyopathy (principal); I49.5 Sick sinus syndrome; I11.0 Hypertensive heart disease with heart failure; I50.22 Chronic systolic (congestive) heart failure; I25.10 Atherosclerotic heart disease of native coronary artery without angina pectoris; I25.2 Old myocardial infarction; Z87.891 Personal history of nicotine dependence; E78.5 Hyperlipidemia, unspecified; Z79.82 Long term (current) use of aspirin; Z79.899 Other long term (current) drug therapy
CPT/HCPCS: 33249; 80048; 85025; 71046; C1769 ×4; C1892 ×2; C1730; C1898; C1721; C1777; J2250; J0690 ×3; J2001; J1170 ×2; J2704; Q9966

== ENCOUNTER → 2019-03-14 | Outpatient (CLI) | payer MEDICARE, OTHER | END | disposition home or self-care (01) | LOC: LABPAT 15:36 | PROVIDERS: ATTEND Orthopaedic Surgery | DX: Z01.812 Encounter for preprocedural laboratory examination (principal); Z01.818 Encounter for other preprocedural examination; M16.11 Unilateral primary osteoarthritis, right hip | CPT/HCPCS: 36415; 85730; 87070 ==

== ENCOUNTER 2019-03-19 10:11 | Inpatient (IN) | payer MEDICARE, OTHER ==
[~2019-03-19 10:11] MED LIST changes: +ACETAMINOPHEN TAB 500 MG TAB PO ONE; +DEXAMETHASONE SOD PHOSPHATE 10 MG/ML 1 ML VIAL IV ONE; +LIDOCAINE 1% 20 ML VIAL (10MG/ML) FOR IV START INTRADERMA PRN; +MELOXICAM 7.5 MG TAB PO ONE; +MIDAZOLAM 2 MG/2 ML VIAL IV PRN; +ONDANSETRON 4 MG/2 ML VIAL IVP ONE; +ROPIVACAINE 246.25 MG, EPINEPHrine 0.5 MG, KETOROLAC 30 MG, cloNIDine HCL/PF 80 MCG, WA... MISCELLANE ONE; +SCOPOLAMINE 1.5MG/72HR PATCH TRANSDERM ONE; +TRANEXAMIC ACID 1,000 MG in SODIUM CHLORIDE 0.9% 100 ML IVPB ONE
[2019-03-19] MEDS ORDERED: NALOXONE 0.4 MG/ML 1 ML VIAL IV PRN (11:12)
[2019-03-19] MEDS ORDERED: DIAZEPAM 5 MG TAB PO PRN (11:12)
[2019-03-19] MEDS ORDERED: ONDANSETRON 4 MG/2 ML VIAL IVP PRN (11:12)
[2019-03-19] MEDS ORDERED: MAGNESIUM HYDROXIDE 2,400 MG/10 ML CUP PO PRN (11:12)
[2019-03-19] MEDS ORDERED: HYDROmorphone 0.5 MG/0.5 ML SYRINGE IVP PRN ×2 (11:12)
[2019-03-19] MEDS ORDERED: HYDROcodone/APAP 5-325MG 1 EACH TAB PO PRN (11:12)
[2019-03-19] MEDS ORDERED: MIDAZOLAM 2 MG/2 ML VIAL ONE (11:32)
[2019-03-19] MEDS ORDERED: fentaNYL (PF) 50 MCG/ML 2 ML AMP ONE (11:32)
[2019-03-19] MEDS ORDERED: SODIUM CHLORIDE 0.9% 100 ML BAG ONE (11:32)
[2019-03-19] MEDS ORDERED: LIDOCAINE 1% INJ 10MG/ML (20 ML MDV) ONE (11:32)
[2019-03-19] MEDS ORDERED: PROPOFOL 10 MG/ML 20 ML VIAL IV ONE (11:32)
[2019-03-19] MEDS ORDERED: ePHEDrine SULFATE/0.9% NACL/PF 50 MG/5 ML SYRINGE IV ONE (11:32)
[2019-03-19] MEDS ORDERED: TRANEXAMIC ACID 1,000 MG/10 ML VIAL ONE (11:32)
[2019-03-19] MEDS ORDERED: PHENYLEPHRINE-0.9% NACL SYG 1 MG/10 ML SYRINGE ONE (11:32)
[2019-03-19] MEDS ORDERED: ceFAZolin 3,000 MG in SODIUM CHLORIDE 0.9% IRRIGATIO 3,000 ML IRRIGATION ONE (11:37)
--- NOTE | 2019-03-19 12:51 | P.OP ---
Date of Procedure: 03/19/19 Preoperative Diagnosis: Severe osteoarthritis right hip Postoperative Diagnosis: Severe osteoarthritis right hip Procedure(s) Performed: Right total hip arthroplasty with a direct anterior approach Implants: Orozco and nephew Polarstem size 5 standard [employer]hew R3, 3 hole acetabular shell, 52 mm [employer] reflection 6.5 mm cancellus screw, 20 mm 2 [employer]hew R3, XLPE 20 acetabular liner [employer]hew Oxinium femoral head 36 m, -3 All components were press-fit. The articulation is Oxinium on polyethylene. Anesthesia: spinal Surgeon: Eliud Pleitez Merchant Banker #1: Mimi Portillo Estimated Blood Loss (ml): 250 (65 mL returned with Cell Saver) Pathology: other (Femoral head) Condition: stable Disposition: PACU Indications for Procedure: After failure of conservative treatment we discussed the surgical and nonsurgical treatment options at length. Patient wishes to proceed with a total hip arthroplasty with a direct anterior approach. Complications specific to this procedure were discussed at length, including but not limited to infection, leg length discrepancy, dislocation, and nerve injury. Patient is aware of all these complications and informed consent was obtained Operative Findings: The operative findings are consistent with severe osteoarthritis of the right hip Description of Procedure: Patient was seen and evaluated in the preoperative area, consent was reviewed, and the surgical site was marked with a skin marker. Patient was then brought to the operating room and given prophylactic antibiotics intravenously. 1 g of Tranexamic acid was also given. A spinal anesthetic was administered by the anesthesia department. The patient was then placed on the [place] table with the bony prominences well-padded. The hip area was then prepped and draped in usual sterile fashion. A universal timeout was then performed, which confirmed the patient's name, surgical site, ALLERGIES, and procedure being performed. Next the incision site was located at 1 cm distal and 1 cm lateral to the anterior superior iliac spine. The skin and subcutaneous tissues were sharply incised. Incision was carefully dissected down to the fascia overlying the tensor fascia genoveva muscle. This fascia was then incised in line with the incision. Next, using blunt finger dissection, the tensor fascia genoveva muscle was dissected off its investing fascia. The muscle was then carefully retracted laterally with a cobra retractor over the lateral neck of the femur. Next, the circumflex vessels were identified and cauterized using the AquaMantis device. The anterior hip capsule was then exposed. The capsule was then opened and an inverted T fashion. Cobra retractors were then placed intracapsularly. The proximal femur was then visualized. The femoral neck was then osteotomized appropriate level above the lesser trochanter. Small amount of traction was placed with the [place] table. A small wedge of bone was then removed from the remaining femoral head. Next, using a corkscrew femoral head was easily removed from the acetabulum. On gross visual inspection, the femoral head had complete loss of articular cartilage in mu ltiple periarticular osteophytes. Attention was then turned to the acetabulum. the acetabulum was exposed and any remaining labrum was excised. Sequential reaming of the acetabulum was performed using fluoroscopic guidance. When the appropriate size was reached, a trial was then placed. The position and fit of the trial was checked with fluoroscopy. The trial was then removed. Then, using fluoroscopic guidance, the final implant was impacted at 20 of anteversion and 40 of abduction, and fully seated in the acetabulum. 2 screws were then placed in the acetabulum. Again fluoroscopy was used to check position of the screws. Next, the liner was then impacted, with a 20 elevated liner located in the anterior superior quadrant. Component locking was confirmed. Attention was then directed to the femur. With the aid of the [place] table, the femur was externally rotated to approximately 130, extended, and abducted under the opposite leg. A side hook was then placed under the proximal femur, and the side hook elevator was used to elevate the proximal femur. Retractors were then placed. A capsular release was performed, as well as a release of the conjoined tendon, which afforded excellent visualization of the proximal femur. Next, a box osteotome was used to lateralize the proximal femur. A cleaning handyman was then used to locate the femoral canal. Sequential broaching was then performed with appropriate size which afforded excellent fixation in the proximal femur. A trial was then placed with appropriate head and neck, and the hip was gently reduced with the aid of the [place] table. Fluoroscopy was then used to check position of the components, as well as to ensure equal leg lengths. The hip was then gently dislocated and the trials were then removed. Final implants were then impacted and the hip was again reduced. Final fluoroscopic x-rays confirmed that the components were in anatomic position, as well as equal leg lengths. The hip was also taken through range of motion, and found to be stable. The hip was then copiously irrigated with antibiotic solution with pulsatile lavage. The hip was then irrigated with Irrisept solution. The soft tissues were then injected with a ropivacaine solution, which consisted of 246.25 mg of ropivacaine, 0.5 mg of epinephrine, 30 mg of Toradol, 80 g of clonidine, and 48.45 mL of sterile water, for a total of 100 mL of fluid injected. A second dose of 1 g of Tranexamic acid was also given. the fascia was then closed with 2-0 strata fix suture. The subcutaneous tissue was closed with 3-0 Vicryl. The subcuticular tissue was closed with 3-0 strata fix suture. The skin was then closed with Dermabond glue and a sterile silver dressing. The patient was then transferred to the recovery room in stable co ndition. The insurance administrative assistant THEODORE Starks was required due to the complexity of surgery, and the need for skilled surgical aide for positioning, draping, exposure, retraction, and closure of the wound.
--- NOTE | 2019-03-19 13:12 | FL ---
EXAMINATION TYPE: FL guidance operating room, XR Hip Limited RT DATE OF EXAM: 03/19/2019 CLINICAL HISTORY: Right hip pain and osteoarthritis. TECHNIQUE: Fluoroscopy. Limited intraoperative views right hip. COMPARISON: None. FINDINGS: Fluoroscopic guidance was provided during hip replacement procedure performed by Dr. Linda espitia. A total of 36 seconds of fluoroscopic time was utilized during the procedure and two spot intra operative images are acquired. Images acquired show metallic from total hip arthroplasty which appears satisfactory in position on f rontal projection. IMPRESSION: As Above.
[2019-03-19] MEDS ORDERED: diphenhydrAMINE 50 MG/ML 1 ML VIAL IVP ONE (13:39)
[2019-03-19] MEDS: HYDROmorphone 0.5 MG/0.5 ML SYRINGE IVP PRN ×4 (13:39→15:45)
--- NOTE | 2019-03-19 14:20 | XR ---
EXAMINATION TYPE: XR Hip Limited RT DATE OF EXAM: 03/19/2019 CLINICAL HISTORY: Right hip pain and osteoarthritis. TECHNIQUE: Single AP portable view of right hip is obtained immediately postoperatively. COMPARISON: Right hip x-ray July 17, 2017. FINDINGS: Metallic hardware from right hip arthroplasty is seen and appears satisfactory in alignment and position. There is evidence of recent surgery with subcutaneous gas noted laterally. IMPRESSION: Metallic hardware from right hip arthroplasty is satisfactory in position.
[2019-03-19] MEDS: SODIUM CHLORIDE 0.9% 1,000 ML IV SCH (16:27)
[2019-03-19] MEDS: HYDROcodone/APAP 5-325MG 1 EACH TAB PO PRN ×2 (16:40→21:44)
[2019-03-19 16:59] VITALS: BMI 26.8
[2019-03-19] MEDS: HYDROmorphone 1 MG/ML 1 ML SYRINGE IVP PRN (18:48)
[2019-03-19] MEDS ORDERED: SENNOSIDES-DOCUSATE SODIUM 1 EACH TAB PO SCH (21:00)
[2019-03-19] MEDS ORDERED: LISINOPRIL 2.5 MG TAB PO SCH (21:00)
[2019-03-19] MEDS: ASPIRIN 325 MG TAB PO SCH (21:30)
[2019-03-19] MEDS: hydrOXYzine PAMOATE 25 MG CAP PO PRN (21:44)
[2019-03-19] MEDS: GABAPENTIN 300 MG CAP PO SCH (23:13)
--- NOTE | 2019-03-19 23:58 | P.CONS ---
History of Present Illness - Reason for Consult Consult date: 03/19/19 Medical management - Chief Complaint Right hip total arthroplasty elective surgery - History of Present Illness Patient is a 54-year-old male with a known history of coronary artery disease, ND 2, chronic CHF with systolic dysfunction and cardiomyopathy status post AICD and history of atrial flutter, diabetes type 2 diet-controlled, hypertension, hyperlipidemia, GERD, obstructive sleep apnea not on CPAP at home and also history of chronic pain and right hip pain was admitted to the hospital for right total hip arthroplasty. Postoperatively patient was still having severe pain and was given Dilaudid IV area Apparently pain is fairly controlled. No complaints of chest pain or shortness of breath. No leg swelling. redness of abdominal pain. no dizziness or lightheadedness. Review of Systems Constitutional: Patient denies any fever or chills . No generalized weakness or weight loss. Abdomen: Patient denied nausea vomiting and diarrhea and abdominal pain. Cardiovascular: Patient denies any chest pain or short of breath no palpitations. Respiratory: patient denied any cough is from production. No shortness of breath Neurologic: Patient denied any numbness or tingling headache. Musculoskeletal: Patient denies any complaints of joint swelling or deformity. Right hip pain. Skin: Negative Psychiatric: Negative Endocrine: No heat or cold intolerance. No recent weight gain. Genitourinary: No dysuria or hematuria. All other 14 point ROS negative except the above Past Medical History Past Medical History: Coronary Artery Disease (CAD), Chest Pain / Angina, Heart Failure, Diabetes Mellitus, GERD/Reflux, Hyperlipidemia, Hypertension, Myocardial Infarction (ND), Osteoarthritis (OA), Pneumonia, Renal Disease, Skin Disorder, Sleep Apnea/CPAP/BIPAP, Vascular Disorder Additional Past Medical History / Comment(s): See Dr Red's H&P. HX OF ND X2 (DATE UNKNOWN),CARDIOMYOPATHY, RESP FAILURE, djd, NO C-PAP. PNEUMONIA 06/2014. PVD,diet controlled diabetes, RASH TO SKIN FOLDS Last Myocardial Infarction Date:: UNKNOWN History of Any Multi-Drug Resistant Organisms: None Reported Past Surgical History: Bariatric Surgery, Heart Catheterization, Hernia Repair, Orthopedic Surgery Additional Past Surgical History / Comment(s): HEART ONLY WORKS AT 35% PER PT. ATTEMPTED HEART CATH, VESSELS TOO SMALL 2012,. RT KNEE TENDON REPAIR. UMBILICAL HERNIA REPAIR. EGD 08/28/14. gastric sleeve 09/14 Past Anesthesia/Blood Transfusion Reactions: No Reported Reaction Type of Cardiac Device: AICD Device Placement Date:: 09/10/18 Past Psychological History: ADD/ADHD, Anxiety, Depression Additional Psychological History / Comment(s): ADHD. Smoking Status: Former smoker Past Alcohol Use History: Rare Additional Past Alcohol Use History / Comment(s): started smoking 1985 and quit 2012 was smoking 1.5-2 ppd, past heavy drinking (quit heavy drinking 2001)HAS BEER ON RARE OCCASION Past Drug Use History: None Reported - Past Family History Father Family Medical History: Chest Pain / Angina, Congestive Heart Failure (CHF), COPD Mother Family Medical History: Diabetes Mellitus, GERD/Reflux Medications and Allergies Home Medications Medication Instructions Recorded Confirmed Type Atorvastatin [Lipitor] 40 mg PO DAILY #30 tab 04/14/18 03/19/19 Rx Aspirin EC [Ecotrin Low Dose] 81 mg PO DAILY 08/09/18 03/19/19 History HYDROcodone/APAP 7.5-325MG [[place] 1 tab PO Q6HR PRN 08/09/18 03/19/19 History 7.5-325] Omeprazole 40 mg PO DAILY #60 capsule. 08/27/18 03/19/19 Rx Gabapentin [Neurontin] 300 mg PO TID 03/18/19 03/19/19 History Lisinopril [Zestril] 2.5 mg PO HS 03/18/19 03/19/19 History Metoprolol Succinate (ER) [Toprol 25 mg PO QAM 03/18/19 03/19/19 History XL] Spironolactone [Aldactone] 25 mg PO QAM 03/18/19 03/19/19 History Allergies Allergy/AdvReac Type Severity Reaction Status Date / Time morphine AdvReac numbness Verified 03/19/19 13:47 Physical Exam Vitals: Vital Signs Temp Pulse Resp BP BP Pulse Ox 03/19/19 20:03 97.5 F L 71 18 96 03/19/19 18:57 108/62 03/19/19 16:26 97.7 F 50 L 16 117/71 96 03/19/19 15:55 52 L 16 116/62 99 03/19/19 15:25 53 L 16 114/66 100 03/19/19 14:55 49 L 16 110/65 99 03/19/19 14:28 52 L 16 116/75 100 03/19/19 14:04 61 16 141/77 100 03/19/19 13:43 52 L 16 140/71 100 03/19/19 13:28 54 L 16 154/70 100 03/19/19 13:15 53 L 16 135/62 100 03/19/19 13:12 98.0 F 69 16 135/62 100 03/19/19 10:44 97.1 F L 50 L 16 130/81 100 Intake and Output 03/19/19 03/19/19 03/19/19 06:59 14:59 22:59 Intake Total 1001 400 Output Total 250 Balance 751 400 Intake: IV 1001 400 Output: Estimated Blood Loss 250 PHYSICAL EXAMINATION: Patient is lying in the bed comfortably, no acute distress, awake alert and oriented.. HEENT: Normocephalic. Neck is supple. Pupils reactive. Nostrils clear. Oral cavity is moist. Ears reveal no drainage. Neck reveals no JVD, carotid bruits, or thyromegaly. CHEST EXAMINATION: Trachea is central. Symmetrical expansion. Bibasilar diminished air entry. Lung jensen clear to auscultation and percussion. CARDIAC: Normal S1, S2 with no gallops. No murmurs ABDOMEN: Soft. Bowel sounds normal. No organomegaly. No abdominal bruits. Extremities: reveal no edema. No clubbing or cyanosis Neurologically awake, alert, oriented x3 with well-coordinated movements. No focal deficits noted Skin: No rash or skin lesions. Psychiatric: Coperative. Nonsuicidal Musculoskeletal: No joint swelling or deformity. Right hip surgical site is intact. Normal range of motion. Assessment and Plan Assessment: Status post right total hip arthroplasty on 03/19/2019 Chronic CHF with systolic dysfunction Cardiomyopathy ejection fraction 35% status post AICD placement Obstructive sleep apnea not on CPAP at home Diabetes type 2 diet-controlled Hypertension Hyperlipidemia GERD History of ND Chronic kidney disease Osteoarthritis ADD/ADHD, anxiety, depression Previous history of smoking DVT prophylaxis Plan: Patient be continued on pain management. Bowel regimen. DVT prophylaxis. Encourage ambulation and incentive spirometry. Continue With home blood pressure medications including metoprolol, lisinopril and spironolactone. Follow-up renal function and Accu-Cheks with sliding scale. We will continue to follow with you and further recommendations based on the clinical course. Thank you for your consult. Time with Patient: Greater than 30
[2019-03-20] MEDS: HYDROmorphone 1 MG/ML 1 ML SYRINGE IVP PRN ×3 (00:08→07:33)
[2019-03-20] MEDS: HYDROcodone/APAP 5-325MG 1 EACH TAB PO PRN (02:55)
[2019-03-20] MEDS: hydrOXYzine PAMOATE 25 MG CAP PO PRN (02:56)
[2019-03-20] MEDS: SODIUM CHLORIDE 0.9% 1,000 ML IV SCH (03:59)
[2019-03-20 07:17] LABS: Basophils % (A) 0 %; Eosinophils % (A) 0 %; HCT 36.4 % (39.0-53.0); Lymphocytes # (A) 1.2 k/uL (1.0-4.8); Lymphocytes % (A) 10 %; MCH 29.8 pg (25.0-35.0); MCHC 32.9 g/dL (31.0-37.0); MCV 90.8 fL (80.0-100.0); Mean Platelet Volume 7.1; Monocytes # (A) 0.8 k/uL (0-1.0); Monocytes % (A) 6 %; Neutrophils # (A) 10.8 k/uL (1.3-7.7); Neutrophils % (A) 83 %; Platelet Count 242 k/uL (150-450); RBC 4.01 m/uL (4.30-5.90); RDW 13.4 % (11.5-15.5)
[2019-03-20 07:26] LABS: African American GFR (CKD) >90 (>60 ml/min/1.73 sqM); Anion Gap 5 mmol/L; Blood Urea Nitrogen 16 mg/dL (9-20); Calcium 8.8 mg/dL (8.4-10.2); Carbon Dioxide 29 mmol/L (22-30); Chloride 104 mmol/L (98-107); Glucose 167 mg/dL (74-99); Potassium 4.9 mmol/L (3.5-5.1); Sodium 138 mmol/L (137-145)
[2019-03-20] MEDS ORDERED: PANTOPRAZOLE 40 MG TABLET PO SCH (07:30)
[2019-03-20] MEDS: ASPIRIN 325 MG TAB PO SCH (07:35)
[2019-03-20] MEDS: GABAPENTIN 300 MG CAP PO SCH ×2 (07:36→15:53)
[2019-03-20] MEDS ORDERED: ATORVASTATIN 40 MG TAB PO SCH (09:00)
[2019-03-20] MEDS ORDERED: MELOXICAM 7.5 MG TAB PO SCH (09:00)
[2019-03-20] MEDS ORDERED: SPIRONOLACTONE 25 MG TAB PO SCH (09:00)
[2019-03-20] MEDS ORDERED: ASPIRIN 81 MG PO SCH (09:00)
[2019-03-20] MEDS ORDERED: METOPROLOL SUCCINATE (ER) 25 MG TAB.ER.24H PO SCH (09:00)
--- NOTE | 2019-03-20 09:09 | P.DS ---
Providers Date of admission: 03/19/19 13:07 Expected date of discharge: 03/20/19 Attending physician: Eliud Pleitez Consults: 03/19/19 16:18 Consult Physician Routine Consulting Provider: Dorys Rucker Consult Reason/Comments: medical management Do you want consulting provider notified?: Already Contacted Primary care physician: Susanne Gamino - Discharge Diagnosis(es) (1) Osteoarthritis of right hip Current Visit: Yes Status: Acute (2) Status post total hip replacement, right Current Visit: Yes Status: Acute Hospital Course: This is a 54-year-old male with known history of degenerative arthritis of the right hip. The patient presents for evaluation. After discussion and consideration patient elects to proceed with total hip arthroplasty. The patient is seen preoperatively by Dr. Pleitez and medically cleared for surgery by their primary care physician. Patient is admitted to [facility] on 03/19/2019 for total hip arthroplasty. The procedures performed without complication or sequelae. The patient is doing well postoperatively. Labs and vital signs are stable on day of discharge. On day of discharge patient's hip incision is healing well. There is minimal erythema. There is no drainage noted at this time. There is minimal soft tissue swelling to the hip and thigh. Patient has full foot and ankle motion without difficulty or pain. Calf is soft and nontender to palpation. Neurovascular status to the right lower extremity is intact. Patient is discharged home in good condition. Opioid start talking form is reviewed and signed at patient bedside. Please see med rec for accurate list of home medications. Plan - Discharge Summary Discharge Rx Participant: Yes New Discharge Prescriptions: New Aspirin 325 mg PO BID #60 tab HYDROcodone/APAP 7.5-325MG [[place] 7.5-325] 1 - 2 tab PO Q6H PRN #56 tab PRN Reason: Pain Sennosides [Senokot] 1 tab PO BID #60 tablet No Action Atorvastatin [Lipitor] 40 mg PO DAILY #30 tab HYDROcodone/APAP 7.5-325MG [[place] 7.5-325] 1 tab PO Q6HR PRN PRN Reason: Pain Aspirin EC [Ecotrin Low Dose] 81 mg PO DAILY Omeprazole 40 mg PO DAILY #60 capsule. Gabapentin [Neurontin] 300 mg PO TID Metoprolol Succinate (ER) [Toprol XL] 25 mg PO QAM Lisinopril [Zestril] 2.5 mg PO HS Spironolactone [Aldactone] 25 mg PO QAM Discharge Medication List Atorvastatin [Lipitor] 40 mg PO DAILY #30 tab 04/14/18 [Rx] Aspirin EC [Ecotrin Low Dose] 81 mg PO DAILY 08/09/18 [History] HYDROcodone/APAP 7.5-325MG [[place] 7.5-325] 1 tab PO Q6HR PRN 08/09/18 [History] Omeprazole 40 mg PO DAILY #60 capsule. 08/27/18 [Rx] Gabapentin [Neurontin] 300 mg PO TID 03/18/19 [History] Lisinopril [Zestril] 2.5 mg PO HS 03/18/19 [History] Metoprolol Succinate (ER) [Toprol XL] 25 mg PO QAM 03/18/19 [History] Spironolactone [Aldactone] 25 mg PO QAM 03/18/19 [History] Aspirin 325 mg PO BID #60 tab 03/20/19 [Rx] HYDROcodone/APAP 7.5-325MG [[place] 7.5-325] 1 - 2 tab PO Q6H PRN #56 tab 03/20/19 [Rx] Sennosides [Senokot] 1 tab PO BID #60 tablet 03/20/19 [Rx] Follow up Appointment(s)/Referral(s): Susanne Gamino MD [Primary Care Provider] - 1 Week Eliud Pleitez DO [Doctor of Osteopathic Medicine] - 04/03/19 3:30 pm Activity/Diet/Wound Care/Special Instructions: Weightbearing as tolerated with walker. Leave dressing intact. Dressing may be removed by home care nurse or by patient in 10 days. May shower with dressing on. Recommend use of compression stockings for 2 weeks during the day. May remove at night. Please follow-up with [facility] in 2 weeks and call with any questions or concerns, . Discharge Disposition: HOME WITH HOME HEALTH SERVICES
[2019-03-20] MEDS ORDERED: HYDROcodone/APAP 7.5-325MG 1 EACH TAB PO PRN (09:31)
[2019-03-20] MEDS: HYDROcodone/APAP 7.5-325MG 1 EACH TAB PO PRN ×2 (09:36→15:52)
--- NOTE | 2019-03-20 14:10 | CDI ---
Documentation Clarification Form Date: 03/20/2019 1:42:34 PM From: Yasmin Lezama RN, CCDS Admit Date: 03/19/2019 1:07:00 PM Patient Name: Delroy Francisco Visit Number: [id number] Discharge Date: ATTENTION: The Clinical Documentation Specialists (CDI) and [facility] Coding Staff appreciate your assistance in clarifying documentation. Please respond to the clarification below the line at the bottom and electronically sign. The CDI & [facility] Coding staff will review the response and follow-up if needed. Please note: Queries are made part of the Legal Health Record. If you have any questions, please contact the author of this message via ITS. Dr. Dorys Rucker Patient was admitted with severe osteoarthritis right hip present for elective right total hip arthroplasty. History/Risk Factors: CAD, Chronic CHF with systolic dysfunction, Ischemic Cardiomyopathy, DM type 2, hypertension, Renal disease Clinical Indicators: 54 year old male who present for elective surgery related to chronic hip pain and severe osteoarthritis of the right hip. In your medical consult on 03/19/19 you have documented chronic kidney disease and further clarification is needed. Current BUN 16 CR 0.87 GFR:>90 Patients Baseline BUN/CR/GFR: not noted Treatment: IVF I/o per protocol In order to capture the severity of condition, please clarify if the condition signifies: CKD Stage 1 (GFR > 90) CKD Stage 2 (GFR 60-89) CKD Stage 3 (GFR 30-59) Other, please specify Unable to determine (Last Revision: October 2017) CKD Stage 1 (GFR > 90) MTDD
[2019-03-20 14:41] VITALS: BP 138/88; PULSE 58; RESP 16; TEMP 98.2
== END 2019-03-20 17:04 | disposition home health service (06) | DRG 470 ==
LOC: OR 10:11 → 4SSUR 13:07
PROVIDERS: ADMIT Orthopaedic Surgery; ATTEND Orthopaedic Surgery
PROC: 30233N0 Transfusion of Autologous Red Blood Cells into Peripheral Vein, Percutaneous Approach (ICD-10-PCS; 2019-03-19)
PROC: 0SR906A Replacement of Right Hip Joint with Oxidized Zirconium on Polyethylene Synthetic Substitute, Uncemented, Open Approach (ICD-10-PCS; principal; 2019-03-19 11:35)
DX: M16.11 Unilateral primary osteoarthritis, right hip (principal); I50.22 Chronic systolic (congestive) heart failure; I13.0 Hypertensive heart and chronic kidney disease with heart failure and stage 1 through stage 4 chronic kidney disease, or unspecified chronic kidney disease; E11.22 Type 2 diabetes mellitus with diabetic chronic kidney disease; E11.51 Type 2 diabetes mellitus with diabetic peripheral angiopathy without gangrene; N18.1 Chronic kidney disease, stage 1; I25.5 Ischemic cardiomyopathy; E78.2 Mixed hyperlipidemia; G47.33 Obstructive sleep apnea (adult) (pediatric); I25.10 Atherosclerotic heart disease of native coronary artery without angina pectoris; I25.2 Old myocardial infarction; K21.9 Gastro-esophageal reflux disease without esophagitis; F90.9 Attention-deficit hyperactivity disorder, unspecified type; H91.90 Unspecified hearing loss, unspecified ear; Z79.82 Long term (current) use of aspirin; Z79.899 Other long term (current) drug therapy; Z98.84 Bariatric surgery status; Z95.810 Presence of automatic (implantable) cardiac defibrillator; Z87.891 Personal history of nicotine dependence; Z86.59 Personal history of other mental and behavioral disorders; Z86.79 Personal history of other diseases of the circulatory system; Z87.01 Personal history of pneumonia (recurrent); Z87.2 Personal history of diseases of the skin and subcutaneous tissue; Z88.5 Allergy status to narcotic agent; Z83.3 Family history of diabetes mellitus; Z82.49 Family history of ischemic heart disease and other diseases of the circulatory system; Z82.5 Family history of asthma and other chronic lower respiratory diseases; Z83.79 Family history of other diseases of the digestive system
CPT/HCPCS: 73501; 80048; 85025; 86850; 86891; 86900; 86901; 88300

== ENCOUNTER 2019-06-27 18:03 | Observation (INO) | payer MEDICARE, OTHER ==
[2019-06-27] MEDS ORDERED: ASPIRIN 81 MG PO STA (18:23)
[2019-06-27] MEDS ORDERED: SODIUM CHLORIDE 0.9% 500 ML 500 ML IV STA (18:23)
[2019-06-27 18:47] LABS: Basophils % (A) 0 %; Eosinophils # (A) 0.1 k/uL (0-0.7); Eosinophils % (A) 2 %; HCT 39.9 % (39.0-53.0); HGB 13.4 gm/dL (13.0-17.5); Lymphocytes # (A) 1.6 k/uL (1.0-4.8); Lymphocytes % (A) 22 %; MCH 29.6 pg (25.0-35.0); MCHC 33.7 g/dL (31.0-37.0); MCV 87.8 fL (80.0-100.0); Mean Platelet Volume 6.2; Monocytes # (A) 0.6 k/uL (0-1.0); Monocytes % (A) 9 %; Neutrophils # (A) 4.6 k/uL (1.3-7.7); Neutrophils % (A) 66 %; Platelet Count 291 k/uL (150-450); RBC 4.54 m/uL (4.30-5.90); RDW 12.6 % (11.5-15.5); WBC 6.9 k/uL (3.8-10.6)
[2019-06-27 19:01] LABS: ALT 31 U/L (21-72); AST 33 U/L (17-59); African American GFR (CKD) >90 (>60 ml/min/1.73 sqM); Albumin 3.8 g/dL (3.5-5.0); Alkaline Phosphatase 74 U/L (38-126); Anion Gap 8 mmol/L; Blood Urea Nitrogen 27 mg/dL (9-20); Calcium 9.1 mg/dL (8.4-10.2); Carbon Dioxide 24 mmol/L (22-30); Chloride 110 mmol/L (98-107); Glucose 80 mg/dL (74-99); Magnesium 2.1 mg/dL (1.6-2.3); Non-African American GFR(CKD) >90 (>60 ml/min/1.73 sqM); Potassium 4.2 mmol/L (3.5-5.1); Sodium 142 mmol/L (137-145); Total Bilirubin 0.3 mg/dL (0.2-1.3); Total Protein 6.7 g/dL (6.3-8.2)
--- NOTE | 2019-06-27 19:04 | XR ---
EXAMINATION TYPE: XR chest 2V DATE OF EXAM: 06/27/2019 COMPARISON: 09/11/2018 HISTORY: Chest pain TECHNIQUE: Frontal and lateral views of the chest are obtained. FINDINGS: Heart is normal. Lungs are clear of consolidation. There are no hilar masses. There is a l eft axillary pacemaker. There are chest leads. Costophrenic angles are clear. IMPRESSION: No active cardiopulmonary disease. Normal heart. No adverse change.
[2019-06-27 19:05] LABS: D-Dimer 0.58 mg/L FEU (<0.60); INR 1.1 (<1.2); Partial Thromboplastin Time 23.7 sec (22.0-30.0); Prothrombin Time 11.4 sec (9.0-12.0)
[2019-06-27] MEDS: NITROGLYCERIN SL TABS 0.4 MG TAB SUBLINGUAL STA ×2 (19:17→19:19)
[2019-06-27] MEDS ORDERED: HYDROmorphone 1 MG/ML 1 ML SYRINGE IVP STA (19:34)
[2019-06-27] MEDS ORDERED: NITROGLYCERIN SL TABS 0.4 MG TAB SUBLINGUAL PRN (19:40)
--- NOTE | 2019-06-27 19:42 | ED ---
General Adult HPI - General Chief complaint: Chest Pain Stated complaint: HEART RACING Time Seen by Provider: 06/27/19 18:18 Source: patient, RN notes reviewed, old records reviewed Mode of arrival: wheelchair Limitations: no limitations - History of Present Illness Initial comments: 54-year-old male patient presents to the chief complaint of heart racing, chest pain, shortness of breath. Patient courses began approximately 1.5 hours prior to presentation. Patient does have a cardiac history of prior stent, AICD implantation approximately 3 months ago. Ejection fraction approximately 30%. At time of evaluation patient complains of some mild left parasternal pain reports that shortness breath has improved. Denies any other complaints. Systemic: Pt denies fatigue, fever/chills, rash. Pt denies weakness, night sweats, weight loss. Neuro: Pt denies headache, visual disturbances, syncope or pre-syncope. HEENT: Pt denies ocular discharge or irritation, otalgia, rhinorrhea, pharyngitis or notable lymphadenopathy. Cardiopulmonary: Pt denies heart palpitations, dyspnea on exertion. Abdominal/GI: Pt denies abdominal pain, n/v/d. : Pt denies dysuria, burning w/ urination, frequency/urgency. Denies new onset urinary or bowel incontinence. MSK: Pt denies myalgia, loss of strength or function in extremities. Neuro: Pt denies new onset weakness, paresthesias. - Related Data Home Medications Medication Instructions Recorded Confirmed Aspirin EC [Ecotrin Low Dose] 81 mg PO DAILY 08/09/18 03/19/19 HYDROcodone/APAP 7.5-325MG [[place] 1 tab PO Q6HR PRN 08/09/18 03/19/19 7.5-325] Gabapentin [Neurontin] 300 mg PO TID 03/18/19 03/19/19 Lisinopril [Zestril] 2.5 mg PO HS 03/18/19 03/19/19 Metoprolol Succinate (ER) [Toprol 25 mg PO QAM 03/18/19 03/19/19 XL] Spironolactone [Aldactone] 25 mg PO QAM 03/18/19 03/19/19 Previous Rx's Medication Instructions Recorded Atorvastatin [Lipitor] 40 mg PO DAILY #30 tab 04/14/18 Omeprazole 40 mg PO DAILY #60 capsule. 08/27/18 Aspirin 325 mg PO BID #60 tab 03/20/19 HYDROcodone/APAP 7.5-325MG [[place] 1 - 2 tab PO Q6H PRN #56 tab 03/20/19 7.5-325] Sennosides [Senokot] 1 tab PO BID #60 tablet 03/20/19 Allergies Allergy/AdvReac Type Severity Reaction Status Date / Time morphine AdvReac numbness Verified 06/27/19 18:09 Review of Systems ROS Statement: Those systems with pertinent positive or pertinent negative responses have been documented in the HPI. ROS Other: All systems not noted in ROS Statement are negative. Past Medical History Past Medical History: Coronary Artery Disease (CAD), Heart Failure, Diabetes Mellitus, GERD/Reflux, Hyperlipidemia, Hypertension, Myocardial Infarction (SC), Osteoarthritis (OA), Pneumonia, Renal Disease, Sleep Apnea/CPAP/BIPAP, Vascular Disorder Additional Past Medical History / Comment(s): HX OF [place] X2 (DATE UNKNOWN),CARDIOMYOPATHY, RESP FAILURE, djd, NO C-PAP. PNEUMONIA 06/2014. PVD, diet controlled diabetes,(lost over 200lbs from bariatric sx) Last Myocardial Infarction Date:: UNKNOWN History of Any Multi-Drug Resistant Organisms: None Reported Past Surgical History: AICD, Bariatric Surgery, Heart Catheterization, Hernia Repair, Joint Replacement, Orthopedic Surgery Additional Past Surgical History / Comment(s): HEART ONLY WORKS AT 35% PER PT. ATTEMPTED HEART CATH, VESSELS TOO SMALL 2012,. RT KNEE TENDON REPAIR,UMBILICAL HERNIA REPAIR. EGD 08/28/14.gastric sleeve 09/14. AICD ST [place] 09/10/18, R hip Past Anesthesia/Blood Transfusion Reactions: No Reported Reaction Type of Cardiac Device: AICD Device Placement Date:: 09/10/18 Past Psychological History: ADD/ADHD, Anxiety, Depression Smoking Status: Former smoker Past Alcohol Use History: Rare Past Drug Use History: None Reported - Past Family History Father Family Medical History: Chest Pain / Angina, Congestive Heart Failure (CHF), COPD Mother Family Medical History: Diabetes Mellitus, GERD/Reflux General Exam - General Exam Comments Initial Comments: Constitutional: NAD, AOX3, Pt has pleasant affect. HEENT: NC/AT, trachea midline, neck supple, no lymphadenopathy. Posterior pharynx non erythematous, without exudates. External ears appear normal, without discharge. Mucous membranes moist. Eyes PERRLA, EOM intact. There is no scleral icterus. No pallor noted. Cardiopulmonary: RRR, no murmurs, rubs or gallops, no JVD noted. Lungs CTAB in anterior and posterior jensen. No peripheral edema. Abdominal exam: Abdomen soft and non-distended. Abdomen non-tender to palpation in all 4 quadrants. Bowel sounds active in LLQ. No hepatosplenomegaly. No ecchy mosis Neuro: CN II-XII grossly intact. No nuchal rigidity. No raccon eyes, no goodman sign, no hemotympanum. No cervical spinal tenderness. MSK: No posterior calf tenderness bilaterally, homans sign negative bilaterally. Posterior tibialis and radial pulse +2 bilaterally. Sensation intact in upper a nd lower extremities. Full active ROM in upper and lower extremities, 5/5 stregnth. Limitations: no limitations Course Vital Signs 06/27/19 06/27/19 18:10 18:40 Temperature 98 F Pulse Rate 98 81 Respiratory 18 16 Rate Blood Pressure 121/83 140/88 O2 Sat by Pulse 98 99 Oximetry Medical Decision Making - Medical Decision Making 54-year-old male patient presents to the chief complaint of heart racing, chest pain, shortness of breath. Patient courses began approximately 1.5 hours prior to presentation. Patient does have a cardiac history of prior stent, AICD implantation approximately 3 months ago. Ejection fraction approximately 30%. At time of evaluation patient complains of some mild left parasternal pain reports that shortness breath has improved. Denies any other complaints. Patient vital signs stable, afebrile. Physical exam did not display acute pathology. EKG nonischemic. No significant change from prior. Left investigations overall negative. Troponin 0.014. BNP 419. D-dimer 0.58. Chest x-ray revealed no acute process. Patient began complaining of some chronic neck pain due to the uncomfortable bed. Patient administered pain medications. Patient be admitted for serial troponins and cardiology evaluation. Case discussed with Dr. Mulligan. - Lab Data Result diagrams: 06/27/19 18:36 06/27/19 18:36 Lab Results 06/27/19 06/27/19 06/27/19 Range/Units 18:36 18:36 18:36 WBC 6.9 (3.8-10.6) k/uL RBC 4.54 (4.30-5.90) m/uL Hgb 13.4 (13.0-17.5) gm/dL Hct 39.9 (39.0-53.0) % MCV 87.8 (80.0-100.0) fL MCH 29.6 (25.0-35.0) pg MCHC 33.7 (31.0-37.0) g/dL RDW 12.6 (11.5-15.5) % Plt Count 291 (150-450) k/uL Neutrophils % 66 % Lymphocytes % 22 % Monocytes % 9 % Eosinophils % 2 % Basophils % 0 % Neutrophils # 4.6 (1.3-7.7) k/uL Lymphocytes # 1.6 (1.0-4.8) k/uL Monocytes # 0.6 (0-1.0) k/uL Eosinophils # 0.1 (0-0.7) k/uL Basophils # 0.0 (0-0.2) k/uL PT 11.4 (9.0-12.0) sec INR 1.1 (<1.2) APTT 23.7 (22.0-30.0) sec D-Dimer 0.58 (<0.60) mg/L FEU Sodium 142 (137-145) mmol/L Potassium 4.2 (3.5-5.1) mmol/L Chloride 110 H (98-107) mmol/L Carbon Dioxide 24 (22-30) mmol/L Anion Gap 8 mmol/L BUN 27 H (9-20) mg/dL Creatinine 0.85 (0.66-1.25) mg/dL Est GFR (CKD-EPI)AfAm >90 (>60 ml/min/1.73 sqM) Est GFR (CKD-EPI)NonAf >90 (>60 ml/min/1.73 sqM) Glucose 80 (74-99) mg/dL Calcium 9.1 (8.4-10.2) mg/dL Magnesium 2.1 (1.6-2.3) mg/dL Total Bilirubin 0.3 (0.2-1.3) mg/dL AST 33 (17-59) U/L ALT 31 (21-72) U/L Alkaline Phosphatase 74 (38-126) U/L Troponin I (0.000-0.034) ng/mL NT-Pro-B Natriuret Pep pg/mL Total Protein 6.7 (6.3-8.2) g/dL Albumin 3.8 (3.5-5.0) g/dL 06/27/19 06/27/19 Range/Units 18:36 18:36 WBC (3.8-10.6) k/uL RBC (4.30-5.90) m/uL Hgb (13.0-17.5) gm/dL Hct (39.0-53.0) % MCV (80.0-100.0) fL MCH (25.0-35.0) pg MCHC (31.0-37.0) g/dL RDW (11.5-15.5) % Plt Count (150-450) k/uL Neutrophils % % Lymphocytes % % Monocytes % % Eosinophils % % Basophils % % Neutrophils # (1.3-7.7) k/uL Lymphocytes # (1.0-4.8) k/uL Monocytes # (0-1.0) k/uL Eosinophils # (0-0.7) k/uL Basophils # (0-0.2) k/uL PT (9.0-12.0) sec INR (<1.2) APTT (22.0-30.0) sec D-Dimer (<0.60) mg/L FEU Sodium (137-145) mmol/L Potassium (3.5-5.1) mmol/L Chloride (98-107) mmol/L Carbon Dioxide (22-30) mmol/L Anion Gap mmol/L BUN (9-20) mg/dL Creatinine (0.66-1.25) mg/dL Est GFR (CKD-EPI)AfAm (>60 ml/min/1.73 sqM) Est GFR (CKD-EPI)NonAf (>60 ml/min/1.73 sqM) Glucose (74-99) mg/dL Calcium (8.4-10.2) mg/dL Magnesium (1.6-2.3) mg/dL Total Bilirubin (0.2-1.3) mg/dL AST (17-59) U/L ALT (21-72) U/L Alkaline Phosphatase (38-126) U/L Troponin I 0.014 (0.000-0.034) ng/mL NT-Pro-B Natriuret Pep 419 pg/mL Total Protein (6.3-8.2) g/dL Albumin (3.5-5.0) g/dL - EKG Data -: EKG Interpreted by Me (and Dr. Mulligan) EKG Comments: Ventricular rate 78, WA interval 156, QRS 100, QT/QTC 380/433. Normal sinus rhythm, septal infarct age undetermined. Abnormal EKG, no concern for acute ischemia. Disposition Clinical Impression: Chest pain Disposition: ADMITTED IP TO THIS HOSP Condition: Serious Is patient prescribed a controlled substance at d/c from ED?: No Referrals: Susanne Gamino MD [Primary Care Provider] - 1-2 days
[2019-06-27 20:41] VITALS: RESP 18
[2019-06-27] MEDS ORDERED: ACETAMINOPHEN TAB 325 MG TAB PO STA (22:30)
[2019-06-27] MEDS: HYDROmorphone 0.5 MG/0.5 ML SYRINGE IVP PRN (22:51)
--- NOTE | 2019-06-28 02:31 | HP ---
HISTORY AND PHYSICAL DATE OF SERVICE: 06/28/2019. CHIEF COMPLAINT: Chest pain. HISTORY OF PRESENT ILLNESS: This 54-year-old gentleman with a past medical history of multiple medical problems including CAD, history of CHF, diabetes type 2, hypertension, hyperlipidemia, GERD, myocardial infarction, history of DJD, sleep apnea, history AICD, bariatric surgery, history of ADD, ADHD, anxiety, depression being followed by Dr. Susanne Gamino in the outpatient setting was apparently under a lot of stress recently. The patient apparently had a court order for driving under license suspension and the patient apparently had [employer] restitution about 4000 dollars and other penalties. The patient was severely anxious regarding the and was unable to sleep and today the patient is complaining of chest pain which was mostly left-sided, sharp in character without much radiation involving the whole of the left side of the chest and the patient came to [facility] and was admitted for further evaluation and treatment. Patient was feeling the pain under the AICD also. There is no history any shortness of breath, hematochezia, melena at this time. PAST MEDICAL HISTORY: History of CAD, CHF, hypertension, hyperlipidemia, myocardial infarction, DJD, sleep apnea, AICD, bariatric surgery. MEDICATIONS: Prior to admission include home medications are: 1. Aldactone 25 mg q.a.m. 2. Senna 1 tablet p.o. b.i.d. 3. Omeprazole 40 mg p.o. daily. 4. Toprol-XL 25 mg q.h.s. 5. Zestril 2.5 mg q.h.s. 6. [place] 7.5 q.6h p.r.n. 7. Neurontin 300 mg p.o. t.i.d. 8. Lipitor 80 mg p.o. daily. 9. Ecotrin 81 mg daily. 10.Aspirin 320 mg p.o. daily. ALLERGIES: MORPHINE. FAMILY HISTORY: History of chest pain, angina, CHF, COPD. SOCIAL HISTORY: History of occasional alcohol, previous history of smoker. REVIEW OF SYSTEMS: ENT: No diminished vision. No diminished hearing. CARDIOVASCULAR as mentioned earlier. RESPIRATORY: As mentioned earlier. GI no nausea, vomiting, diarrhea. no dysuria. Central nervous system: No numbness or weakness. ALLERGY/IMMUNOLOGY: No asthma or hayfever. MUSCULOSKELETAL: History of arthritis. CONSTITUTIONAL: As mentioned earlier. DERMATOLOGY negative. NEUROLOGY negative. PSYCHIATRY as mentioned earlier. RHEUMATOLOGY: Negative. PHYSICAL EXAMINATION: Alert and oriented times three. Pulse is 81, blood pressure 140/88. Respirations 16. Temperature 98 degrees, pulse ox 99% on 2 L. HEENT is conjunctivae normal. Oral mucosa moist. NECK is no jugular venous distention. No carotid bruit. No lymph node enlargement. Cardiovascular system: S1, S2 muffled. No S3, no S4. RESPIRATION: Breath sounds diminished in the bases. A few scattered rhonchi and crackles. ABDOMEN: Soft, nontender. No mass palpable. LEGS: No edema. No swelling. NERVOUS SYSTEM: Higher functions as mentioned earlier. Moves all four limbs. No focal motor or sensory deficits. LYMPHATICS: No lymph nodes palpable in the neck, axillae or groin. SKIN: No ulcer, no rash and no bleeding. JOINTS: No active deforming arthropathy. Exam of the left chest, no local tenderness appreciated. LABS: CBC within normal limits. Troponins awaited. BUN 27. EKG awaited. ASSESSMENT: 1. Chest pain possible unstable angina. 2. Severe anxiety state and social stressors. 3. History of coronary artery disease. 4. History of congestive heart failure. 5. Diabetes mellitus type 2. 6. Gastroesophageal reflux disease. 7. Hypertension. 8. Hyperlipidemia. 9. Myocardial infarction. 10.History of degenerative joint disease. 11.History of sleep apnea. 12.History of myocardial infarction. 13.History of cardiomyopathy. 14.History of AICD. 15.History of bariatric surgery. 16.History of degenerative joint disease. 17.History of attention-deficit disorder /attention-deficit/hyperactivity disorder. 18.History of anxiety, depression. 19.Remote history of nicotine dependence. RECOMMENDATIONS AND DISCUSSION: In this 54-year-old gentleman who presented with multiple complex medical issues, we will monitor the patient closely, continue the current medications, management and symptomatic treatment. Rule out myocardial infarction. I would recommend cardiology consultation. Resume the home medications. Unstable angina protocol. Symptomatic treatment. Xanax and Restoril also may be given because of the patient's anxiety and insomnia, which was reported. Otherwise, prognosis guarded because of multiple complex medical issues. Further recommendations to follow. A copy of dictation being forwarded to Dr. Susanne Gamino who is the primary physician. Further recommendations to follow. MMODL / IJN: [id number] / MTDD
[2019-06-28] MEDS: HYDROmorphone 0.5 MG/0.5 ML SYRINGE IVP PRN ×2 (03:06→07:57)
[2019-06-28 08:25] LABS: Cholesterol 155 mg/dL (<200); HDL Cholesterol 79 mg/dL (40-60); LDL Cholesterol,Calculated 64 mg/dL (0-99); Triglycerides 61 mg/dL (<150)
[2019-06-28] MEDS ORDERED: ASPIRIN 325 MG TAB PO SCH (09:00)
[2019-06-28 11:33] VITALS: BP 117/79; PULSE 51; TEMP 97.4
--- NOTE | 2019-06-28 11:41 | P.CRDCN ---
History of Present Illness Consult date: 06/28/19 Chief complaint: Heart racing History of present illness: This is a very pleasant 54-year-old gentleman with a past medical history significant for coronary artery disease, ischemic cardiomyopathy, status post AICD, diabetes, hypertension, and dyslipidemia presented to the hospital because he was not feeling well. The patient was in his usual state of health until yesterday evening when he was sitting at home and suddenly he developed an ep isode of heart racing. The heart racing was not associated with dizziness or lightheadedness or loss of consciousness or syncope. No anginal chest pain or chest discomfort. Because of his symptoms he decided to come to the hospital. The patient underwent a cardiac workup came in to be unremarkable. The EKG showed sinus rhythm without any ischemic ST or T-wave abnormalities. The cardiac enzymes were checked and came in to be unremarkable. The chest x-ray did not show any acute abnormalities. The patient stated that he has been chest pain-free through his hospital stay. Also he is hemodynamically stable. The last echocardiogram from 2018 revealed impaired LV function with EF between 35- 40%. The patient does have an AICD in place. He stated that he does follow-up with Dr. Salazar on a regular basis. Past Medical History Past Medical History: Coronary Artery Disease (CAD), Heart Failure, Diabetes Mellitus, GERD/Reflux, Hyperlipidemia, Hypertension, Myocardial Infarction ([place]), Osteoarthritis (OA), Pneumonia, Renal Disease, Sleep Apnea/CPAP/BIPAP, Vascular Disorder Additional Past Medical History / Comment(s): HX OF [place] X2 (DATE UNKNOWN),CARDIOMYOPATHY, RESP FAILURE, djd, NO C-PAP. PNEUMONIA 06/2014. PVD, diet controlled diabetes,(lost over 200lbs from bariatric sx) Last Myocardial Infarction Date:: UNKNOWN History of Any Multi-Drug Resistant Organisms: None Reported Past Surgical History: AICD, Bariatric Surgery, Heart Catheterization, Hernia Repair, Joint Replacement, Orthopedic Surgery Additional Past Surgical History / Comment(s): HEART ONLY WORKS AT 35% PER PT. ATTEMPTED HEART CATH, VESSELS TOO SMALL 2012,. RT KNEE TENDON REPAIR,UMBILICAL HERNIA REPAIR. EGD 08/28/14.gastric sleeve 09/14. AICD ST CA 09/10/18, R hip 02/2019 Past Anesthesia/Blood Transfusion Reactions: No Reported Reaction Type of Cardiac Device: AICD Device Placement Date:: 09/10/18 Past Psychological History: ADD/ADHD, Anxiety, Depression Additional Psychological History / Comment(s): not currently on any meds Smoking Status: Current every day smoker Past Alcohol Use History: Rare Additional Past Alcohol Use History / Comment(s): started smoking 1985 and quit 2012 was smoking 1.5-2 ppd, past heavy drinking (quit heavy drinking 2001) Past Drug Use History: None Reported - Past Family History Father Family Medical History: Chest Pain / Angina, Congestive Heart Failure (CHF), COPD Mother Family Medical History: Diabetes Mellitus, GERD/Reflux Medications and Allergies Home Medications Medication Instructions Recorded Confirmed Type Atorvastatin [Lipitor] 40 mg PO DAILY #30 tab 04/14/18 06/27/19 Rx HYDROcodone/APAP 7.5-325MG [[place] 1 tab PO TID 08/09/18 06/27/19 History 7.5-325] Gabapentin [Neurontin] 300 mg PO TID 03/18/19 06/27/19 History Lisinopril [Zestril] 2.5 mg PO DAILY 03/18/19 06/27/19 History Metoprolol Succinate (ER) [Toprol 25 mg PO DAILY 03/18/19 06/27/19 History XL] ALPRAZolam [Xanax] 0.25 mg PO BID PRN 3 Days #6 tab 06/28/19 Rx Allergies Allergy/AdvReac Type Severity Reaction Status Date / Time morphine AdvReac numbness Verified 06/27/19 22:19 Physical Exam Vitals: Vital Signs Temp Pulse Pulse Resp BP BP Pulse Ox 06/28/19 11:32 97.4 F L 51 L 18 117/79 98 06/28/19 07:00 97.5 F L 61 18 123/82 98 06/28/19 04:00 97.7 F 50 L 18 105/68 96 06/27/19 23:44 97.6 F 60 18 112/69 97 06/27/19 20:30 97.6 F 66 18 114/78 98 06/27/19 20:06 60 16 106/69 97 06/27/19 18:40 81 16 140/88 99 06/27/19 18:10 98 F 98 18 121/83 98 Intake and Output 06/27/19 06/28/19 06/28/19 22:59 06:59 14:59 Intake Total 222 100 Balance 222 100 Intake: Oral 222 Other 100 Other: Voiding Method Toilet Toilet Toilet # Voids 2 Weight 87.09 kg - Constitutional General appearance: no acute distress - Respiratory Respiratory: bilateral: CTA - Cardiovascular Rhythm: regular Heart sounds: normal: S1, S2 Results 06/27/19 18:36 06/27/19 18:36 Cardiac Enzymes 06/27/19 06/27/19 06/28/19 Range/Units 18:36 18:36 00:42 AST 33 (17-59) U/L Troponin I 0.014 0.019 (0.000-0.034) ng/mL 06/28/19 Range/Units 07:39 AST (17-59) U/L Troponin I 0.017 (0.000-0.034) ng/mL Coagulation 06/27/19 Range/Units 18:36 PT 11.4 (9.0-12.0) sec APTT 23.7 (22.0-30.0) sec Lipids 06/28/19 Range/Units 07:39 Triglycerides 61 (<150) mg/dL Cholesterol 155 (<200) mg/dL HDL Cholesterol 79 H (40-60) mg/dL CBC 06/27/19 Range/Units 18:36 WBC 6.9 (3.8-10.6) k/uL RBC 4.54 (4.30-5.90) m/uL Hgb 13.4 (13.0-17.5) gm/dL Hct 39.9 (39.0-53.0) % Plt Count 291 (150-450) k/uL Comprehensive Metabolic Panel 06/27/19 Range/Units 18:36 Sodium 142 (137-145) mmol/L Potassium 4.2 (3.5-5.1) mmol/L Chloride 110 H (98-107) mmol/L Carbon Dioxide 24 (22-30) mmol/L BUN 27 H (9-20) mg/dL Creatinine 0.85 (0.66-1.25) mg/dL Glucose 80 (74-99) mg/dL Calcium 9.1 (8.4-10.2) mg/dL AST 33 (17-59) U/L ALT 31 (21-72) U/L Alkaline Phosphatase 74 (38-126) U/L Total Protein 6.7 (6.3-8.2) g/dL Albumin 3.8 (3.5-5.0) g/dL Current Medications Generic Name Dose Route Start Last Admin Trade Name Chai PRN Reason Stop Dose Admin Aspirin 325 mg 06/28/19 09:00 06/28/19 07:57 Aspirin PO 325 mg DAILY SRIDHAR Administration Hydromorphone HCl 0.5 mg 06/27/19 19:42 06/28/19 07:57 Dilaudid IVP 0.5 mg Q4HR PRN Administration Pain Nitroglycerin 0.4 mg 06/27/19 19:40 Nitrostat SUBLINGUAL Q5M PRN Chest Pain Intake and Output 06/27/19 06/28/19 06/28/19 22:59 06:59 14:59 Intake Total 222 100 Balance 222 100 Intake: Oral 222 Other 100 Other: Voiding Method Toilet Toilet Toilet # Voids 2 Weight 87.09 kg 06/27/19 18:36 06/27/19 18:36 Assessment and Plan Assessment: Assessment #1 an episode of heart racing and fluttering #2 coronary artery disease #3 ischemic cardiomyopathy #4 hypertension #5 dyslipidemia Plan #1 acute coronary event was ruled out #2 the patient currently is asymptomatic as well as hemodynamically stable #3 from the cardiovascular standpoint overview, he might be able to be discharged home and he needs to have the AICD interrogated. The patient need to follow-up with Dr. Salazar as an outpatient.
[2019-06-28] MEDS ORDERED: HYDROcodone/APAP 5-325MG 1 EACH TAB PO STA (12:03)
--- NOTE | 2019-06-29 00:08 | DS ---
DISCHARGE SUMMARY FINAL DIAGNOSES: 1. Chest pain possibly musculoskeletal. Myocardial infarction ruled out. Rule out coronary artery disease. 2. Severe anxiety stasis social stressors. 3. History of coronary artery disease, history of congestive heart failure. 4. Diabetes mellitus type 2. 5. Gastroesophageal reflux disease. 6. Hyperlipidemia. 7. History of myocardial infarction. 8. History of degenerative joint disease. 9. History of sleep apnea, history of cardiomyopathy. 10.History AICD history of bariatric surgery history of degenerative joint disease. 11.Hyperactivity disorder. 12.History of anxiety, depression. 13.Remote history of nicotine dependence discharge the patient will be discharged in stable condition with guarded prognosis. Discharge cleared by Cardiology. HISTORY OF PRESENT ILLNESS: This 54-year-old gentleman with past medical problems being followed Dr. Susanne Gamino in the ER admitted chest pain [place] compression ruled out rule out cardiology saw the patient and recommended outpatient followup. On exam, vitals are stable cardiovascular abdomen soft. Nervous system nervous system. DISCHARGE ADVICE AND MEDICATIONS: 1. Diet is cardiac diet. 2. Activity limited until followup. 3. Follow up with Dr. Susanne Gamino in 2 days follow up with Cardiology as recommended. DISCHARGE MEDICATIONS ARE: 1. Neurontin 300 mg p.o. t.i.d. 2. [place] 7.5 p.o. t.i.d. 3. Toprol-XL 25 mg p.o. daily. 4. Zestril 2.5 mg daily. 5. Lipitor 40 mg p.o. daily. 6. Xanax 0.5 b.i.d. p.r.n. for 3 days. Discharge Disposition: in stable condition with guarded prognosis. MMODL / IJN: [id number] /
== END 2019-06-28 13:15 | disposition home or self-care (01) ==
LOC: EC 18:03 → 1SOBS 19:40
PROVIDERS: ADMIT Hospitalist; ATTEND Hospitalist
DX: R07.9 Chest pain, unspecified (principal); F41.9 Anxiety disorder, unspecified; F43.8 Other reactions to severe stress; I25.10 Atherosclerotic heart disease of native coronary artery without angina pectoris; I11.0 Hypertensive heart disease with heart failure; I50.9 Heart failure, unspecified; E11.9 Type 2 diabetes mellitus without complications; K21.9 Gastro-esophageal reflux disease without esophagitis; E78.5 Hyperlipidemia, unspecified; I25.2 Old myocardial infarction; M19.90 Unspecified osteoarthritis, unspecified site; G47.30 Sleep apnea, unspecified; I25.5 Ischemic cardiomyopathy; Z95.810 Presence of automatic (implantable) cardiac defibrillator; Z98.84 Bariatric surgery status; F90.9 Attention-deficit hyperactivity disorder, unspecified type; F32.9 Major depressive disorder, single episode, unspecified; Z87.891 Personal history of nicotine dependence; I73.9 Peripheral vascular disease, unspecified; Z95.5 Presence of coronary angioplasty implant and graft; Z79.82 Long term (current) use of aspirin; Z79.899 Other long term (current) drug therapy; Z88.5 Allergy status to narcotic agent; Z87.01 Personal history of pneumonia (recurrent); Z87.448 Personal history of other diseases of urinary system; Z87.09 Personal history of other diseases of the respiratory system; Z98.890 Other specified postprocedural states; Z96.60 Presence of unspecified orthopedic joint implant; Z96.641 Presence of right artificial hip joint; Z82.49 Family history of ischemic heart disease and other diseases of the circulatory system; Z82.5 Family history of asthma and other chronic lower respiratory diseases; Z83.79 Family history of other diseases of the digestive system; Z83.3 Family history of diabetes mellitus
CPT/HCPCS: 93005 ×2; 96376 ×2; 96361; 96374; 99285; 36415; 85379; 83880; 80061; 80053; 83735; 84484 ×2; 85025; 85610; 85730; 71046; G0378 ×2; J1170 ×3

== ENCOUNTER 2019-07-06 11:17 | Emergency (ER) | payer MEDICARE, OTHER ==
[2019-07-06] MEDS ORDERED: LIDOCAINE 1% INJ 10MG/ML (20 ML MDV) SQ ONE (11:51)
--- NOTE | 2019-07-06 12:24 | XR ---
EXAMINATION TYPE: XR hand complete RT , 3 VIEWS DATE OF EXAM ORDERED: 07/06/2019 HISTORY: pain. COMPARISON: None. FINDINGS: No fracture, dislocation or radiopaque foreign body is seen. IMPRESSION: NO ACUTE OSSEOUS LESION.
--- NOTE | 2019-07-06 12:47 | ED ---
Wound/Laceration HPI - General Chief Complaint: Wound/Laceration Stated Complaint: laceration on right hand Time Seen by Provider: 07/06/19 11:46 Source: patient, RN notes reviewed, old records reviewed Mode of arrival: ambulatory Limitations: no limitations - History of Present Illness Initial Comments: This patient's a 54-year-old male who presents emergency department today for evaluation for concern for a laceration over his right palm. Patient reports he tripped and fell over a sidewalk curb. Patient states that he was on his way to work once occurred. Patient states that he needs a note for work as well. He reports that he is with multiple Band-Aids is continued to bleed acute opening up with movement. Patient understands treatment plan will comply. - Related Data Home Medications Medication Instructions Recorded Confirmed HYDROcodone/APAP 7.5-325MG [[place] 1 tab PO TID 08/09/18 06/27/19 7.5-325] Gabapentin [Neurontin] 300 mg PO TID 03/18/19 06/27/19 Lisinopril [Zestril] 2.5 mg PO DAILY 03/18/19 06/27/19 Metoprolol Succinate (ER) [Toprol 25 mg PO DAILY 03/18/19 06/27/19 XL] Previous Rx's Medication Instructions Recorded Atorvastatin [Lipitor] 40 mg PO DAILY #30 tab 04/14/18 ALPRAZolam [Xanax] 0.25 mg PO BID PRN 3 Days #6 tab 06/28/19 Allergies Allergy/AdvReac Type Severity Reaction Status Date / Time morphine AdvReac numbness Verified 06/27/19 22:19 Review of Systems ROS Statement: Those systems with pertinent positive or pertinent negative responses have been documented in the HPI. ROS Other: All systems not noted in ROS Statement are negative. Past Medical History Past Medical History: Coronary Artery Disease (CAD), Chest Pain / Angina, Heart Failure, Diabetes Mellitus, GERD/Reflux, Hyperlipidemia, Hypertension, Myocardial Infarction ([place]), Osteoarthritis (OA), Pneumonia, Renal Disease, Sleep Apnea/CPAP/BIPAP, Vascular Disorder Additional Past Medical History / Comment(s): HX OF [place] X2 (DATE UNKNOWN),CARDIOMYOPATHY, RESP FAILURE, djd, NO C-PAP. PNEUMONIA 06/2014. PVD, diet controlled diabetes,(lost over 200lbs from bariatric sx) Last Myocardial Infarction Date:: UNKNOWN History of Any Multi-Drug Resistant Organisms: None Reported Past Surgical History: AICD, Bariatric Surgery, Heart Catheterization, Hernia Repair, Joint Replacement, Orthopedic Surgery Additional Past Surgical History / Comment(s): HEART ONLY WORKS AT 35% PER PT. ATTEMPTED HEART CATH, VESSELS TOO SMALL 2012,. RT KNEE TENDON REPAIR,UMBILICAL HERNIA REPAIR. EGD 08/28/14.gastric sleeve 09/14. AICD ST CA 09/10/18, R hip 02/2019 Past Anesthesia/Blood Transfusion Reactions: No Reported Reaction Type of Cardiac Device: AICD Device Placement Date:: 09/10/18 Past Psychological History: ADD/ADHD, Anxiety, Depression Smoking Status: Current every day smoker Past Alcohol Use History: Rare Past Drug Use History: None Reported - Past Family History Father Family Medical History: Chest Pain / Angina, Congestive Heart Failure (CHF), COPD Mother Family Medical History: Diabetes Mellitus, GERD/Reflux General Exam - General Exam Comments Initial Comments: 54-year-old male. Alert and oriented. Patient appears in no distress. Limitations: no limitations General appearance: alert, in no apparent distress Head exam: Present: atraumatic Eye exam: Present: normal appearance ENT exam: Present: normal exam, mucous membranes moist Neck exam: Present: normal inspection. Absent: tenderness, meningismus, lymphadenopathy Respiratory exam: Present: normal lung sounds bilaterally. Absent: respiratory distress, wheezes, rales, rhonchi, stridor Cardiovascular Exam: Present: regular rate, normal rhythm, normal heart sounds. Absent: systolic murmur, diastolic murmur, rubs, gallop, clicks GI/Abdominal exam: Present: soft, normal bowel sounds. Absent: distended, tenderness, guarding, rebound, rigid Extremities exam: Present: normal inspection, full ROM, normal capillary refill, other ( is a 3 cm laceration over the right thenar eminence. Patient states wound is well approximated with closure.). Absent: tenderness, pedal edema, joint swelling, calf tenderness Back exam: Present: normal inspection Neurological exam: Present: alert, oriented X3, CN II-XII intact Psychiatric exam: Present: normal affect Skin exam: Present: warm, dry, intact, normal color. Absent: rash Course Vital Signs 07/06/19 07/06/19 12:01 13:28 Temperature 98.1 F 97.9 F Pulse Rate 73 78 Respiratory 19 16 Rate Blood Pressure 105/84 110/79 O2 Sat by Pulse 97 100 Oximetry Procedures - Laceration Laceration #1 Site: upper extremity (r hand ) Size (cm): 3 Description: linear Depth: simple, single layer Anesthetic Used: lidocaine 1% Anesthesia Technique: local infiltration Amount (mls): 3 Pre-repair: wound explored, irrigated extensively Type of Sutures: nylon Size of Sutures: 6-0 Number of Sutures: 3 Technique: simple, interrupted Patient Tolerated Procedure: well, no complications Medical Decision Making - Medical Decision Making 54-year-old male presents emergency department today with laceration over his right palm. Patient fell after tripping over a curb. Asians wound was thoroughly irrigated. X-ray shows evidence of retained foreign body. Wound was closed with 3 sutures. I discussed the Patient can monitor for any infection redness swelling or drainage. Discussed suture care. all questions were answered. - Radiology Data Radiology results: report reviewed No acute osseous lesion, no retained foreign body in hand. Disposition Clinical Impression: Hand laceration Disposition: HOME SELF-CARE Condition: Good Instructions (If sedation given, give patient instructions): Care For Your Stitches (ED) Additional Instructions: Please return to the emergency room in 8-10 days to have sutures removed. Please leave wound covered for the first 24-48 hours and then leave open to air after that time. Please use clean soap and water to clean the suture area to prevent scabbing over the top of your sutures. Please watch for any signs of infection which may include but not limited to increased pain, swelling, redness, fever or chills. Please return to the emergency room if any signs of infection do occur. Please return to the emergency room for any other concerns or complications. Is patient prescribed a controlled substance at d/c from ED?: No Referrals: Susanne Gamino MD [Primary Care Provider] - 1-2 days Time of Disposition: 13:21
[2019-07-06 13:30] VITALS: BP 110/79; PULSE 78; RESP 16; TEMP 97.9
== END 2019-07-06 13:36 | disposition home or self-care (01) ==
LOC: EC 11:17
DX: S61.411A Laceration without foreign body of right hand, initial encounter (principal); I25.119 Atherosclerotic heart disease of native coronary artery with unspecified angina pectoris; I11.0 Hypertensive heart disease with heart failure; I50.9 Heart failure, unspecified; E11.51 Type 2 diabetes mellitus with diabetic peripheral angiopathy without gangrene; I25.2 Old myocardial infarction; F17.200 Nicotine dependence, unspecified, uncomplicated; Z79.899 Other long term (current) drug therapy; Z88.5 Allergy status to narcotic agent; Z98.84 Bariatric surgery status; Z95.810 Presence of automatic (implantable) cardiac defibrillator; W01.0XXA Fall on same level from slipping, tripping and stumbling without subsequent striking against object, initial encounter; Y92.480 Sidewalk as the place of occurrence of the external cause
CPT/HCPCS: 73130; 99283; 12002; J2001

== ENCOUNTER 2019-07-26 22:01 | Observation (INO) | payer MEDICARE, OTHER ==
[2019-07-26 22:49] LABS: Basophils # (A) 0.1 k/uL (0-0.2); Basophils % (A) 1 %; Eosinophils # (A) 0.1 k/uL (0-0.7); Eosinophils % (A) 2 %; HCT 40.6 % (39.0-53.0); HGB 13.2 gm/dL (13.0-17.5); Lymphocytes # (A) 1.7 k/uL (1.0-4.8); Lymphocytes % (A) 25 %; MCH 28.5 pg (25.0-35.0); MCHC 32.4 g/dL (31.0-37.0); MCV 87.8 fL (80.0-100.0); Mean Platelet Volume 7.7; Monocytes # (A) 0.5 k/uL (0-1.0); Monocytes % (A) 8 %; Neutrophils # (A) 4.4 k/uL (1.3-7.7); Neutrophils % (A) 63 %; Platelet Count 239 k/uL (150-450); RBC 4.62 m/uL (4.30-5.90); RDW 13.2 % (11.5-15.5)
--- NOTE | 2019-07-26 23:03 | XR ---
EXAMINATION TYPE: XR chest 2V DATE OF EXAM: 07/26/2019 COMPARISON: 06/27/2019 HISTORY: Chest pain TECHNIQUE: 2 views FINDINGS: Heart and mediastinum are normal. Lungs are clear. Diaphragm is normal. There is a left axi llary pacemaker. Bony thorax is intact. IMPRESSION: No cardiopulmonary disease. Normal heart. No change.
[2019-07-26 23:04] LABS: INR 1.1 (<1.2); Partial Thromboplastin Time 24.6 sec (22.0-30.0); Prothrombin Time 11.6 sec (9.0-12.0)
--- NOTE | 2019-07-26 23:16 | ED ---
Arrhythmia/Palpitations HPI - General Chief Complaint: Arrhythmia/Palpitations Stated Complaint: irregular heart beat Time Seen by Provider: 07/26/19 22:05 Source: patient, EMS Mode of arrival: EMS Limitations: no limitations - History of Present Illness Initial Comments: The patient is a 54-year-old male past medical history of coronary artery disease, cardiomyopathy with AICD placement who presents emergency department with reported palpitations. Patient admits that he came home from work and took a nap. He was awakened from his sleep with palpitations. Patient reports he felt diaphoretic with chest tightness. Denies AICD shock. Symptoms persisted for approximately 10 minutes before he called EMS. EMS did perform multiple EKGs on the patient. I didn't demonstrates the patient going in and out of being paced by his pacemaker. The patient did have an episode of tachycardia with a rate of 115. He had associated presyncopal sensation. Denies any recent medication changes. He has been compliant with his medications. Denies any rec ent illnesses. No nausea or vomiting. Denies any chest pain or shortness of breath. Does admit to chronic neck pain and has not taken his [place] tonight. He denies any abdominal pain or changes in his bowel or bladder habits. He also reports that he took his sugar at home and it was noted high 300s. Reports that he used to have an issue with hyperglycemia however since significant weight loss he is now diet controlled therefore is markedly abnormal for him to have high sugars. There are no alleviating, precipitating or modifying factors - Related Data Home Medications Medication Instructions Recorded Confirmed HYDROcodone/APAP 7.5-325MG [[place] 1 tab PO TID 08/09/18 07/27/19 7.5-325] Gabapentin [Neurontin] 300 mg PO TID 03/18/19 07/27/19 Lisinopril [Zestril] 2.5 mg PO DAILY 03/18/19 07/27/19 Metoprolol Succinate (ER) [Toprol 25 mg PO DAILY 03/18/19 07/27/19 XL] Previous Rx's Medication Instructions Recorded Atorvastatin [Lipitor] 40 mg PO DAILY #30 tab 04/14/18 ALPRAZolam [Xanax] 0.25 mg PO BID PRN 3 Days #6 tab 06/28/19 Allergies Allergy/AdvReac Type Severity Reaction Status Date / Time No Known Allergies Allergy Verified 07/27/19 08:51 Review of Systems ROS Statement: Those systems with pertinent positive or pertinent negative responses have been documented in the HPI. ROS Other: All systems not noted in ROS Statement are negative. Past Medical History Past Medical History: Coronary Artery Disease (CAD), Chest Pain / Angina, Heart Failure, Diabetes Mellitus, GERD/Reflux, Hyperlipidemia, Hypertension, Myocardial Infarction ([place]), Osteoarthritis (OA), Pneumonia, Renal Disease, Sleep Apnea/CPAP/BIPAP, Vascular Disorder Additional Past Medical History / Comment(s): HX OF [place] X2 (DATE UNKNOWN),CARDIOMYOPATHY, RESP FAILURE, djd, NO C-PAP. PNEUMONIA 06/2014. PVD, diet controlled diabetes,(lost over 200lbs from bariatric sx) Last Myocardial Infarction Date:: UNKNOWN History of Any Multi-Drug Resistant Organisms: None Reported Past Surgical History: AICD, Bariatric Surgery, Heart Catheterization, Hernia Repair, Joint Replacement, Orthopedic Surgery Additional Past Surgical History / Comment(s): HEART ONLY WORKS AT 35% PER PT. ATTEMPTED HEART CATH, VESSELS TOO SMALL 2012,. RT KNEE TENDON REPAIR,UMBILICAL HERNIA REPAIR. EGD 08/28/14.gastric sleeve 09/14. AICD ST CA 09/10/18, R hip 02/2019 Past Anesthesia/Blood Transfusion Reactions: No Reported Reaction Type of Cardiac Device: AICD Device Placement Date:: 09/10/18 Past Psychological History: ADD/ADHD, Anxiety, Depression Smoking Status: Current every day smoker Past Alcohol Use History: Rare Past Drug Use History: None Reported - Past Family History Father Family Medical History: Chest Pain / Angina, Congestive Heart Failure (CHF), COPD Mother Family Medical History: Diabetes Mellitus, GERD/Reflux General Exam Limitations: no limitations General appearance: alert, in no apparent distress Head exam: Present: atraumatic, normocephalic, normal inspection Eye exam: Present: normal appearance, PERRL, EOMI. Absent: scleral icterus, conjunctival injection, periorbital swelling ENT exam: Present: normal exam, mucous membranes moist Neck exam: Present: normal inspection. Absent: tenderness, meningismus, lymphadenopathy Respiratory exam: Present: normal lung sounds bilaterally. Absent: respiratory distress, wheezes, rales, rhonchi, stridor Cardiovascular Exam: Present: regular rate, normal rhythm, normal heart sounds. Absent: systolic murmur, diastolic murmur, rubs, gallop, clicks GI/Abdominal exam: Present: soft, normal bowel sounds. Absent: distended, tenderness, guarding, rebound, rigid Extremities exam: Present: normal inspection, full ROM, normal capillary refill. Absent: tenderness, pedal edema, joint swelling, calf tenderness Back exam: Present: normal inspection Neurological exam: Present: alert, oriented X3, CN II-XII intact Psychiatric exam: Present: normal affect, normal mood Skin exam: Present: warm, dry, intact, normal color. Absent: rash Course Vital Signs 07/26/19 07/27/19 07/27/19 22:03 00:00 00:50 Temperature 97.7 F 98.0 F Pulse Rate 71 68 Pulse Rate [ 74 Pulse Oximetery ] Respiratory 18 16 18 Rate Blood Pressure 135/90 146/98 Blood Pressure 137/93 [Left Arm] O2 Sat by Pulse 100 98 96 Oximetry 07/27/19 01:00 Temperature Pulse Rate 65 Pulse Rate [ Pulse Oximetery ] Respiratory 16 Rate Blood Pressure 145/99 Blood Pressure [Left Arm] O2 Sat by Pulse 99 Oximetry EKG Findings - EKG Comments: EKG Findings:: EKG demonstrates a normal sinus rhythm with ventricular rate of 66. TX interval 162. Care is 110. QTC of 44. There are no acute ST segment elevations or depressions concerning for ischemic changes. There is a bundle branch block. EKG is compared to previous and is same morphology Medical Decision Making - Medical Decision Making Upon arrival the patient was placed into room 10. A thorough history and physical exam was performed. Peripheral IV is established. The patient is requesting something for pain control and so I did provide him with his home dose of [place]. A 12-lead EKG is performed which demonstrates no acute changes from previous. I did recommend laboratory studies. CBC is unremarkable. CMP shows a glucose of 54. The patient is given something to eat. He denies taking anything for his hyperglycemia at home. First troponin 0.013. Chest x-ray demonstrates no acute findings. The patient does have an AICD. It is interrogated. I'm currently awaiting report. I recommended hospital admission in order to trend the patient's troponins and have a cardiology consult. We must also wait for the report of the patient's device interrogation. Patient did agree to this. The patient will be admitted to Dr. Mendez. The patient was then transferred to the floor in stable condition - Lab Data Result diagrams: 07/26/19 22:10 07/26/19 22:10 Lab Results 07/26/19 07/26/19 07/26/19 Range/Units 22:10 22:10 22:10 WBC 7.0 (3.8-10.6) k/uL RBC 4.62 (4.30-5.90) m/uL Hgb 13.2 (13.0-17.5) gm/dL Hct 40.6 (39.0-53.0) % MCV 87.8 (80.0-100.0) fL MCH 28.5 (25.0-35.0) pg MCHC 32.4 (31.0-37.0) g/dL RDW 13.2 (11.5-15.5) % Plt Count 239 (150-450) k/uL Neutrophils % 63 % Lymphocytes % 25 % Monocytes % 8 % Eosinophils % 2 % Basophils % 1 % Neutrophils # 4.4 (1.3-7.7) k/uL Lymphocytes # 1.7 (1.0-4.8) k/uL Monocytes # 0.5 (0-1.0) k/uL Eosinophils # 0.1 (0-0.7) k/uL Basophils # 0.1 (0-0.2) k/uL PT 11.6 (9.0-12.0) sec INR 1.1 (<1.2) APTT 24.6 (22.0-30.0) sec Sodium 142 (137-145) mmol/L Potassium 4.2 (3.5-5.1) mmol/L Chloride 109 H (98-107) mmol/L Carbon Dioxide 26 (22-30) mmol/L Anion Gap 7 mmol/L BUN 26 H (9-20) mg/dL Creatinine 0.92 (0.66-1.25) mg/dL Est GFR (CKD-EPI)AfAm >90 (>60 ml/min/1.73 sqM) Est GFR (CKD-EPI)NonAf >90 (>60 ml/min/1.73 sqM) Glucose 54 L (74-99) mg/dL POC Glucose (mg/dL) (75-99) mg/dL POC Glu Zookeeper ID Calcium 9.3 (8.4-10.2) mg/dL Magnesium 2.2 (1.6-2.3) mg/dL Total Bilirubin 0.5 (0.2-1.3) mg/dL AST 31 (17-59) U/L ALT 13 (4-49) U/L Alkaline Phosphatase 84 (38-126) U/L Troponin I (0.000-0.034) ng/mL Total Protein 6.9 (6.3-8.2) g/dL Albumin 4.0 (3.5-5.0) g/dL TSH 1.670 (0.465-4.680) mIU/L 07/26/19 07/27/19 Range/Units 22:10 00:21 WBC (3.8-10.6) k/uL RBC (4.30-5.90) m/uL Hgb (13.0-17.5) gm/dL Hct (39.0-53.0) % MCV (80.0-100.0) fL MCH (25.0-35.0) pg MCHC (31.0-37.0) g/dL RDW (11.5-15.5) % Plt Count (150-450) k/uL Neutrophils % % Lymphocytes % % Monocytes % % Eosinophils % % Basophils % % Neutrophils # (1.3-7.7) k/uL Lymphocytes # (1.0-4.8) k/uL Monocytes # (0-1.0) k/uL Eosinophils # (0-0.7) k/uL Basophils # (0-0.2) k/uL PT (9.0-12.0) sec INR (<1.2) APTT (22.0-30.0) sec Sodium (137-145) mmol/L Potassium (3.5-5.1) mmol/L Chloride (98-107) mmol/L Carbon Dioxide (22-30) mmol/L Anion Gap mmol/L BUN (9-20) mg/dL Creatinine (0.66-1.25) mg/dL Est GFR (CKD-EPI)AfAm (>60 ml/min/1.73 sqM) Est GFR (CKD-EPI)NonAf (>60 ml/min/1.73 sqM) Glucose (74-99) mg/dL POC Glucose (mg/dL) 161 H (75-99) mg/dL POC Glu Zookeeper ID Catalino Bejarano Calcium (8.4-10.2) mg/dL Magnesium (1.6-2.3) mg/dL Total Bilirubin (0.2-1.3) mg/dL AST (17-59) U/L ALT (4-49) U/L Alkaline Phosphatase (38-126) U/L Troponin I 0.013 (0.000-0.034) ng/mL Total Protein (6.3-8.2) g/dL Albumin (3.5-5.0) g/dL TSH (0.465-4.680) mIU/L Disposition Clinical Impression: Palpitations, Chest pain Disposition: ADMITTED IP TO THIS HOSP Condition: Stable Is patient prescribed a controlled substance at d/c from ED?: No Decision to Admit Reason: Admit from EC Decision Date: 07/27/19 Decision Time: 00:31
[2019-07-26 23:22] LABS: ALT 13 U/L (4-49); AST 31 U/L (17-59); African American GFR (CKD) >90 (>60 ml/min/1.73 sqM); Alkaline Phosphatase 84 U/L (38-126); Anion Gap 7 mmol/L; Blood Urea Nitrogen 26 mg/dL (9-20); Calcium 9.3 mg/dL (8.4-10.2); Carbon Dioxide 26 mmol/L (22-30); Chloride 109 mmol/L (98-107); Glucose 54 mg/dL (74-99); Magnesium 2.2 mg/dL (1.6-2.3); Non-African American GFR(CKD) >90 (>60 ml/min/1.73 sqM); Potassium 4.2 mmol/L (3.5-5.1); Sodium 142 mmol/L (137-145); Total Bilirubin 0.5 mg/dL (0.2-1.3); Total Protein 6.9 g/dL (6.3-8.2)
[2019-07-26] MEDS ORDERED: HYDROcodone/APAP 7.5-325MG 1 EACH TAB PO ONE (23:39)
[2019-07-27 00:23] LABS: Glucose,Whole Blood 161 mg/dL (75-99)
[2019-07-27] MEDS ORDERED: NALOXONE 0.4 MG/ML 1 ML VIAL IV PRN (00:34)
[2019-07-27] MEDS ORDERED: ALPRAZolam 0.25 MG TAB PO PRN (00:37)
[2019-07-27] MEDS: KETOROLAC 30 MG/ML 1 ML VIAL IVP PRN ×2 (02:00→08:34)
[2019-07-27 06:21] LABS: Glucose,Whole Blood 97 mg/dL (75-99)
[2019-07-27 08:39] VITALS: BP 124/73; PULSE 62; RESP 16; TEMP 97.9
[2019-07-27] MEDS ORDERED: ATORVASTATIN 40 MG TAB PO SCH (09:00)
[2019-07-27] MEDS ORDERED: HYDROcodone/APAP 7.5-325MG 1 EACH TAB PO SCH (09:00)
[2019-07-27] MEDS ORDERED: METOPROLOL SUCCINATE (ER) 25 MG TAB.ER.24H PO SCH (09:00)
[2019-07-27] MEDS ORDERED: LISINOPRIL 2.5 MG TAB PO SCH (09:00)
[2019-07-27] MEDS ORDERED: GABAPENTIN 300 MG CAP PO SCH (09:00)
--- NOTE | 2019-07-27 12:06 | HP ---
HISTORY AND PHYSICAL This is a combination history and physical and discharge summary. HISTORY AND PHYSICAL/DISCHARGE SUMMARY: DATE OF SERVICE: 07/27/2019 CHIEF COMPLAINT: Chest pain. HISTORY OF PRESENT ILLNESS: This 54-year-old gentleman with past medical history of multiple medical problems was admitted with chest pain, palpitations. The patient left the hospital AGAINST MEDICAL ADVICE before being seen. Please refer to the ER notes and staff notes for further information. The prognosis remains extremely guarded. FINAL DIAGNOSES: Chest pain, palpitation, possible unstable angina. MMODL / IJN: [id number] /
--- NOTE | 2019-07-27 14:27 | CONS ---
CONSULTATION This is a 54-year-old gentleman with a known history of ischemic heart disease, cardiomyopathy, ICD placement, who has not been very compliant with followup. He comes into the hospital after saying that he took a long walk, took a nap, woke up from that, felt his heart was racing and came to the hospital. Upon arrival his heart rate was about 115 and he was in sinus tachycardia in the emergency room. He seems to be doing well without symptoms at this time. Unfortunately, since his last visit to the hospital in May, he has not followed up with Cardiology. He was advised to have a followup in our office with an ICD check, but he did not see Dr. Salazar. He indicates to me that he had some work-related issues and so he could not come back. However, he is resting comfortably. I am suggesting that we can discharge him on current medical regimen. There is no evidence to suggest any significant arrhythmia. So far, his troponin levels are normal. He is resting comfortably without any symptoms. Please refer to the detailed note in consultation from May by Dr. Nicolas. The patient has a known history of CAD with previous percutaneous intervention as well as well as ICD placement. The patient also has history of bariatric surgery and hernia repair and joint replacement. MEDICATIONS: At home include Lipitor 40 mg daily, metoprolol succinate 25 mg daily, lisinopril 2.5 mg daily, Xanax and gabapentin. ALLERGIES: MORPHINE. PHYSICAL EXAMINATION: Blood pressure is 118/70, pulse rate 62 per minute. HEENT unremarkable. Fundus was not examined by me. Neck is supple. There is no JVD. I do not hear a carotid bruit. HEART exam reveals S1, S2 heard normally. No significant murmurs. LUNGS are clear. ABDOMEN is soft, nontender. Lower extremities reveal diminished pulses. CENTRAL NERVOUS SYSTEM is normal. EKG revealed sinus mechanism, evidence of old anteroseptal HI, nonspecific ST changes. IMPRESSION: 1. History of palpitations. No evidence of any significant arrhythmia. 2. Known ischemic cardiomyopathy. 3. History of ICD placement. 4. RECOMMENDATIONS: I have counseled the patient regarding the need to quit smoking, to be compliant with appointments. I suggested that he should see Dr. Salazar upon discharge. We will try and make the appointment today and we will see him in the office and do a device check. Advised to quit smoking. Same medical regimen upon discharge. Thank you very much for the consult. GREG / IJN: [id number] /
== END 2019-07-27 10:58 | disposition left against medical advice (07) ==
LOC: EC 22:01 → 3SCARD 07-27 00:34
PROVIDERS: ADMIT Internal Medicine; ATTEND Internal Medicine
DX: R00.2 Palpitations (principal); R61 Generalized hyperhidrosis; R07.89 Other chest pain; I25.10 Atherosclerotic heart disease of native coronary artery without angina pectoris; I11.0 Hypertensive heart disease with heart failure; Z53.29 Procedure and treatment not carried out because of patient's decision for other reasons; I50.9 Heart failure, unspecified; F17.200 Nicotine dependence, unspecified, uncomplicated; I25.5 Ischemic cardiomyopathy; E11.51 Type 2 diabetes mellitus with diabetic peripheral angiopathy without gangrene; E78.5 Hyperlipidemia, unspecified; K21.9 Gastro-esophageal reflux disease without esophagitis; M19.90 Unspecified osteoarthritis, unspecified site; G47.30 Sleep apnea, unspecified; Z98.84 Bariatric surgery status; I25.2 Old myocardial infarction; F90.9 Attention-deficit hyperactivity disorder, unspecified type; F41.9 Anxiety disorder, unspecified; F32.9 Major depressive disorder, single episode, unspecified; Z87.01 Personal history of pneumonia (recurrent); G89.29 Other chronic pain; M54.2 Cervicalgia; Z96.60 Presence of unspecified orthopedic joint implant; Z82.49 Family history of ischemic heart disease and other diseases of the circulatory system; Z83.3 Family history of diabetes mellitus; Z83.6 Family history of other diseases of the respiratory system; Z79.891 Long term (current) use of opiate analgesic; Z79.899 Other long term (current) drug therapy; Z88.5 Allergy status to narcotic agent
CPT/HCPCS: 96376; 96374; 99285; 36415 ×2; 93005; 80053; 83735; 84443; 84484 ×2; 85025; 85610; 85730; 71046; G0378; J1885

== ENCOUNTER 2019-10-15 17:37 | Emergency (ER) | payer MEDICARE, OTHER ==
[2019-10-15] MEDS ORDERED: MORPHINE SULFATE 4 MG/ML SYRINGE IM STA (17:57)
--- NOTE | 2019-10-15 18:15 | ED ---
General Adult HPI - General Chief complaint: Fall Stated complaint: Fall, hip pain, chest pain Time Seen by Provider: 10/15/19 17:48 Source: patient, RN notes reviewed, old records reviewed Mode of arrival: wheelchair Limitations: no limitations - History of Present Illness Initial comments: 54-year-old male presents for evaluation of left hip pain status post fall. Patient states it mechanical fall falling onto his left hip over his porch. There is no head or neck trauma. Patient is not on anticoagulation. He initially felt only left hip pain, after presenting to the emergency department did develop some neck stiffness associated with the fall. There was no head or neck trauma. No chest pain or abdominal pain. Patient began feeling some palpitations at the time of his fall and does have history of pacemaker defibrillator. He denies being defibrillated. He denies central radiating chest pain. Symptoms have resolved. Patient was ambulatory, came through triage. - Related Data Home Medications Medication Instructions Recorded Confirmed Lisinopril [Zestril] 2.5 mg PO DAILY 03/18/19 10/15/19 Metoprolol Succinate (ER) [Toprol 25 mg PO DAILY 03/18/19 10/15/19 XL] Atorvastatin [Lipitor] 40 mg PO HS 10/15/19 10/15/19 Dextroamphetamine/Amphetamine 10 mg PO TID 10/15/19 10/15/19 [Adderall] HYDROcodone/APAP 10-325MG [[place] 1 tab PO QID PRN 10/15/19 10/15/19 10-325] Allergies Allergy/AdvReac Type Severity Reaction Status Date / Time No Known Allergies Allergy Verified 10/15/19 19:00 Review of Systems ROS Statement: Those systems with pertinent positive or pertinent negative responses have been documented in the HPI. ROS Other: All systems not noted in ROS Statement are negative. Past Medical History Past Medical History: Coronary Artery Disease (CAD), Chest Pain / Angina, Heart Failure, Diabetes Mellitus, GERD/Reflux, Hyperlipidemia, Hypertension, Myocardial Infarction ([place]), Osteoarthritis (OA), Pneumonia, Renal Disease, Sleep Apnea/CPAP/BIPAP, Vascular Disorder Additional Past Medical History / Comment(s): HX OF [place] X2 (DATE UNKNOWN),CARDIOMYOPATHY, RESP FAILURE, djd, NO C-PAP. PNEUMONIA 06/2014. PVD, diet controlled diabetes,(lost over 200lbs from bariatric sx) Last Myocardial Infarction Date:: UNKNOWN History of Any Multi-Drug Resistant Organisms: None Reported Past Surgical History: AICD, Bariatric Surgery, Heart Catheterization, Hernia Repair, Joint Replacement, Orthopedic Surgery Additional Past Surgical History / Comment(s): HEART ONLY WORKS AT 35% PER PT. ATTEMPTED HEART CATH, VESSELS TOO SMALL 2012,. RT KNEE TENDON REPAIR,UMBILICAL HERNIA REPAIR. EGD 08/28/14.gastric sleeve 09/14. AICD ST CA 09/10/18, R hip 02/2019 Past Anesthesia/Blood Transfusion Reactions: No Reported Reaction Type of Cardiac Device: AICD Device Placement Date:: 09/10/18 Past Psychological History: ADD/ADHD, Anxiety, Depression Smoking Status: Current every day smoker Past Alcohol Use History: Rare Past Drug Use History: None Reported - Past Family History Father Family Medical History: Chest Pain / Angina, Congestive Heart Failure (CHF), COPD Mother Family Medical History: Diabetes Mellitus, GERD/Reflux General Exam Limitations: no limitations General appearance: alert, in no apparent distress Head exam: Present: atraumatic, normocephalic Eye exam: Present: normal appearance, PERRL, EOMI ENT exam: Present: normal exam Neck exam: Present: normal inspection. Absent: tenderness, meningismus Respiratory exam: Present: normal lung sounds bilaterally. Absent: respiratory distress, wheezes Cardiovascular Exam: Present: regular rate, normal rhythm, normal heart sounds GI/Abdominal exam: Present: soft. Absent: distended, tenderness, guarding, rebound Extremities exam: Present: normal inspection, full ROM, normal capillary refill. Absent: pedal edema Neurological exam: Present: alert, oriented X3, CN II-XII intact. Absent: motor sensory deficit Psychiatric exam: Present: normal affect, normal mood Skin exam: Present: warm, dry, intact. Absent: cyanosis, diaphoretic Course Vital Signs 10/15/19 17:38 Temperature 97.9 F Pulse Rate 68 Respiratory 18 Rate Blood Pressure 127/82 O2 Sat by Pulse 99 Oximetry EKG Findings - EKG Comments: EKG Findings:: Atrial paced rhythm, rate of 52, AR interval 184, QRS duration 98, QTC 362 Medical Decision Making - Medical Decision Making 54-year-old male presenting status post fall chief complaint of left hip pain. Patient was a mandatory. X-ray performed, negative for acute fracture dislocation of the left hip. I did also x-ray his cervical spine disease complaint is some cervical tightness which occurred after the fall, no midline cervical tenderness. No focal neurological findings. X-ray of the cervical spine negative for fracture subluxation. Patient feeling better after intramuscular morphine. He is called his son for a ride he is not driving. He will be discharged with outpatient follow-up. Disposition Clinical Impression: Fall, Contusion, hip Disposition: HOME SELF-CARE Condition: Good Instructions (If sedation given, give patient instructions): Osteoarthritis (ED), Hip Contusion (ED) Is patient prescribed a controlled substance at d/c from ED?: No Referrals: Susanne Gamino MD [Primary Care Provider] - 1-2 days Time of Disposition: 19:14
--- NOTE | 2019-10-15 18:58 | XR ---
EXAMINATION TYPE: XR cervical spine comp DATE OF EXAM: 10/15/2019 COMPARISON: NONE HISTORY: Neck pain TECHNIQUE: 5 views FINDINGS: Cervical vertebra have normal spacing and alignment. Posterior elements are intact. Neural foramina are widely patent. Atlantoaxial facet joint is normal. There is no evidence of a fracture. T here is mild facet arthropathy at C7-T1. IMPRESSION: Negative cervical spine exam.
--- NOTE | 2019-10-15 18:59 | XR ---
EXAMINATION TYPE: XR Hip Complete LT DATE OF EXAM: 10/15/2019 COMPARISON: NONE HISTORY: Left hip pain. Fall. TECHNIQUE: 2 views FINDINGS: Hip joint space is fairly normal. I see no fracture nor dislocation. Sacroiliac joint appea rs intact. IMPRESSION: Negative left hip exam.
[2019-10-15 19:30] VITALS: BP 122/81; PULSE 70; RESP 16; TEMP 98
== END 2019-10-15 19:30 | disposition home or self-care (01) ==
LOC: EC 17:37
DX: S70.02XA Contusion of left hip, initial encounter (principal); M48.8X2 Other specified spondylopathies, cervical region; I25.119 Atherosclerotic heart disease of native coronary artery with unspecified angina pectoris; I11.0 Hypertensive heart disease with heart failure; I50.9 Heart failure, unspecified; E11.51 Type 2 diabetes mellitus with diabetic peripheral angiopathy without gangrene; E78.5 Hyperlipidemia, unspecified; I25.2 Old myocardial infarction; M19.90 Unspecified osteoarthritis, unspecified site; F90.9 Attention-deficit hyperactivity disorder, unspecified type; Z82.49 Family history of ischemic heart disease and other diseases of the circulatory system; F17.200 Nicotine dependence, unspecified, uncomplicated; Z79.899 Other long term (current) drug therapy; Z95.0 Presence of cardiac pacemaker; Z96.60 Presence of unspecified orthopedic joint implant; W19.XXXA Unspecified fall, initial encounter; Y92.009 Unspecified place in unspecified non-institutional (private) residence as the place of occurrence of the external cause
CPT/HCPCS: 93005; 72050; 73502; 99284; 96372; J2270

== ENCOUNTER 2020-03-16 23:46 | Emergency (ER) | payer MEDICARE, OTHER ==
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
--- NOTE | 2020-03-17 00:32 | XR ---
EXAMINATION TYPE: XR shoulder complete RT DATE OF EXAM: 03/17/2020 COMPARISON: NONE HISTORY: Fall. Pain. TECHNIQUE: 3 views FINDINGS: I see no fracture nor dislocation. There is slight malalignment of the AC joint. There are no pathologic calcifications. IMPRESSION: No dislocation. Possible acute AC joint ligamentous injury. No fracture. AC joint abnorma lity is a change compared to the chest x-ray of 07/26/2019.
[2020-03-17] MEDS: MORPHINE SULFATE 4 MG/ML SYRINGE IM STA ×2 (00:59→01:05)
[2020-03-17] MEDS ORDERED: HYDROmorphone 1 MG/ML 1 ML SYRINGE IM STA (01:05)
[2020-03-17 02:19] VITALS: BP 124/88; PULSE 90; RESP 19; TEMP 97.8
== END 2020-03-17 01:50 | disposition home or self-care (01) ==
LOC: EC 23:46
DX: S49.91XA Unspecified injury of right shoulder and upper arm, initial encounter (principal); I25.119 Atherosclerotic heart disease of native coronary artery with unspecified angina pectoris; I11.0 Hypertensive heart disease with heart failure; I50.9 Heart failure, unspecified; G47.30 Sleep apnea, unspecified; I25.2 Old myocardial infarction; E11.51 Type 2 diabetes mellitus with diabetic peripheral angiopathy without gangrene; E78.5 Hyperlipidemia, unspecified; F90.9 Attention-deficit hyperactivity disorder, unspecified type; F17.200 Nicotine dependence, unspecified, uncomplicated; Z79.899 Other long term (current) drug therapy; Z99.89 Dependence on other enabling machines and devices; Z95.810 Presence of automatic (implantable) cardiac defibrillator; Z98.84 Bariatric surgery status; V18.4XXA Pedal cycle driver injured in noncollision transport accident in traffic accident, initial encounter; Y93.55 Activity, bike riding; Y92.410 Unspecified street and highway as the place of occurrence of the external cause
CPT/HCPCS: 96372; 99284

== ENCOUNTER 2020-04-27 19:01 | Emergency (ER) | payer MEDICARE, OTHER ==
[2020-04-27 19:12] VITALS: BP 118/80; PULSE 95; RESP 18; TEMP 97.9
--- NOTE | 2020-04-27 20:01 | XR ---
EXAMINATION TYPE: XR shoulder complete RT DATE OF EXAM: 04/27/2020 COMPARISON: 03/17/2020 HISTORY: Shoulder pain. Fall. TECHNIQUE: 3 views FINDINGS: The glenohumeral joint is intact. I see no fracture nor dislocation. There is some malalign ment of the AC joint. There is slight widening of the AC joint space. IMPRESSION: There is evidence of ligamentous tear at the AC joint with malalignment of the AC joint t hat is slightly worse than last exam. No fracture seen.
[2020-04-27] MEDS ORDERED: KETOROLAC 15 MG/ML 1 ML VIAL IM STA (20:32)
[2020-04-27] MEDS ORDERED: ACET/COD 300 MG/30 MG STARTER PACK 6 TAB BTL PO STA (20:33)
--- NOTE | 2020-04-27 20:40 | ED ---
General Adult HPI - General Chief complaint: Fall Stated complaint: Fall, shoulder injury/neck pain Time Seen by Provider: 04/27/20 20:07 Source: patient Mode of arrival: ambulatory Limitations: no limitations - History of Present Illness Initial comments: 55-year-old male presents to emergency department this evening with complaints of right shoulder pain status post fall at 2:00 this afternoon. Patient states he slipped and fell down 2 steps injuring his shoulder when he attempted to brace his fall with an outstretched right arm. Reports previous injury to the right shoulder approximately a month ago. Pain worsens with palpation and movement. Patient denies taking any medication for pain prior to arrival. Also complains of pain on the right side of his neck radiating up from his shoulder. Patient denies any headache, back pain, chest pain, shortness of breath, dizziness, weakness, abdominal pain, nausea, vomiting, or difficulties with bowel movements or urination. - Related Data Home Medications Medication Instructions Recorded Confirmed lisinopriL [Zestril] 2.5 mg PO DAILY 03/18/19 04/27/20 Atorvastatin [Lipitor] 40 mg PO HS 10/15/19 04/27/20 Dextroamphetamine/Amphetamine 10 mg PO TID 10/15/19 04/27/20 [Adderall] HYDROcodone/APAP 10-325MG [[place] 1 tab PO QID PRN 10/15/19 04/27/20 10-325] Metoprolol Succinate (ER) [Toprol 50 mg PO DAILY 04/27/20 04/27/20 Xl] Spironolactone [Aldactone] 25 mg PO DAILY 04/27/20 04/27/20 Allergies Allergy/AdvReac Type Severity Reaction Status Date / Time No Known Allergies Allergy Verified 04/27/20 21:00 Review of Systems ROS Statement: Those systems with pertinent positive or pertinent negative responses have been documented in the HPI. ROS Other: All systems not noted in ROS Statement are negative. Past Medical History Past Medical History: Coronary Artery Disease (CAD), Chest Pain / Angina, Heart Failure, Diabetes Mellitus, GERD/Reflux, Hyperlipidemia, Hypertension, Myocardial Infarction ([place]), Osteoarthritis (OA), Pneumonia, Renal Disease, Sleep Apnea/CPAP/BIPAP, Vascular Disorder Additional Past Medical History / Comment(s): HX OF [place] X2 (DATE UNKNOW N),CARDIOMYOPATHY, RESP FAILURE, djd, NO C-PAP. PNEUMONIA 06/2014. PVD, diet controlled diabetes,(lost over 200lbs from bariatric sx) Last Myocardial Infarction Date:: UNKNOWN History of Any Multi-Drug Resistant Organisms: None Reported Past Surgical History: AICD, Bariatric Surgery, Heart Catheterization, Hernia Repair, Joint Replacement, Orthopedic Surgery Additional Past Surgical History / Comment(s): HEART ONLY WORKS AT 35% PER PT. ATTEMPTED HEART CATH, VESSELS TOO SMALL 2012,. RT KNEE TENDON REPAIR,UMBILICAL HERNIA REPAIR. EGD 08/28/14.gastric sleeve 09/14. AICD ST CA 09/10/18, R hip 02/2019 Past Anesthesia/Blood Transfusion Reactions: No Reported Reaction Type of Cardiac Device: AICD Device Placement Date:: 09/10/18 Past Psychological History: ADD/ADHD, Anxiety, Depression Smoking Status: Current every day smoker Past Alcohol Use History: Rare Past Drug Use History: None Reported - Past Family History Father Family Medical History: Chest Pain / Angina, Congestive Heart Failure (CHF), COPD Mother Family Medical History: Diabetes Mellitus, GERD/Reflux General Exam Limitations: no limitations General appearance: alert, in no apparent distress, other (Well-developed, well- nourished male in no acute distress. Initial temperature 97.9F, Pulse 95, respirations 18, blood pressure 118/80, pulse ox 97% on room air.) Head exam: Present: atraumatic, normocephalic, normal inspection Eye exam: Present: normal appearance, PERRL, EOMI. Absent: scleral icterus, conjunctival injection, periorbital swelling Neck exam: Present: normal inspection, tenderness (Anterior neck tenderness upon palpation of the sternocleidomastoid muscle; ), full ROM, other (Nontender, no step-off, no deformity to firm midline palpation of the posterior cervical spine. Full range of motion intact without limitation). Absent: meningismus, lymphadenopathy Respiratory exam: Present: normal lung sounds bilaterally. Absent: respiratory distress, wheezes, rales, rhonchi, stridor Cardiovascular Exam: Present: regular rate, normal rhythm, normal heart sounds. Absent: systolic murmur, diastolic murmur, rubs, gallop, clicks GI/Abdominal exam: Present: soft, normal bowel sounds. Absent: distended, tenderness, guarding, rebound, rigid Right Shoulder Exam: Present: tenderness, tenderness over AC joint (Significant discomfort associated with the right AC joint. ) Upper Arm exam: Present: normal inspection Forearm Wrist exam: Present: normal inspection, full ROM Hand Wrist exam: Present: normal inspection, full ROM Vascular: Present: normal capillary refill, radial pulse (+2 radial pulse). Absent: vascular compromise Back exam: Present: normal inspection, other (Nontender, no step-off, no deformity to firm midline palpation of the thoracic and lumbar vertebrae. Full range of motion without pain or limitation.). Absent: vertebral tenderness Neurological exam: Present: alert, oriented X3, CN II-XII intact Psychiatric exam: Present: normal affect, normal mood Skin exam: Present: warm, dry, intact, normal color. Absent: rash Course Vital Signs 04/27/20 19:09 Temperature 97.9 F Pulse Rate 95 Respiratory 18 Rate Blood Pressure 118/80 O2 Sat by Pulse 97 Oximetry Medical Decision Making - Medical Decision Making 55-year-old male patient presented to the emergency department today for evaluation of increased right shoulder pain after experiencing a fall today. Physical examination did reveal tenderness over the before meals joint and over the right anterior neck over the sternocleidomastoid muscle. He had no posterior cervical spinal tenderness. Full range of motion was intact. Neurovascular status was intact to the right upper extremity. X-rays were obtained and did reveal increased separation of the right acromioclavicular joint worse on last exam. This is concerning for ligamentous tear. I did discuss findings and results with the patient. He was given pain medications here. He'll be discharged follow-up with his treasury specialist for further evaluation as soon as possible. Return parameters were discussed in detail. He verbalizes understanding and agrees with this plan. - Radiology Data Radiology results: report reviewed, image reviewed 3 views of the right shoulder obtained. Report is reviewed in its entirety. Impression by Dr. Gracia shows evidence of a ligamentous tear at the before meals joint with malalignment of the before meals joint is slightly worse than last exam. No fracture seen. Disposition Clinical Impression: Separation of right acromioclavicular joint, Shoulder pain, right Disposition: HOME SELF-CARE Condition: Good Instructions (If sedation given, give patient instructions): Acromioclavicular Separation (ED), Shoulder Pain (ED) Additional Instructions: Rest. Gentle range of motion exercises. Apply ice as needed for discomfort. Take Tylenol with codeine as needed for more severe pain. Follow-up with your family doctor in the next 1-2 days. See orthopedist for further care on the right shoulder. Return to the emergency department with any new, worsening, or concerning symptoms. Is patient prescribed a controlled substance at d/c from ED?: No Referrals: Susanne Gamino MD [Primary Care Provider] - 1-2 days Time of Disposition: 20:54
== END 2020-04-27 21:12 | disposition home or self-care (01) ==
LOC: EC 19:01
DX: S43.101A Unspecified dislocation of right acromioclavicular joint, initial encounter (principal); F90.9 Attention-deficit hyperactivity disorder, unspecified type; G47.33 Obstructive sleep apnea (adult) (pediatric); E78.5 Hyperlipidemia, unspecified; I11.0 Hypertensive heart disease with heart failure; I50.9 Heart failure, unspecified; I20.9 Angina pectoris, unspecified; I25.2 Old myocardial infarction; F17.200 Nicotine dependence, unspecified, uncomplicated; Z79.899 Other long term (current) drug therapy; Z95.5 Presence of coronary angioplasty implant and graft; Z99.89 Dependence on other enabling machines and devices; Z95.810 Presence of automatic (implantable) cardiac defibrillator; W10.9XXA Fall (on) (from) unspecified stairs and steps, initial encounter
CPT/HCPCS: 73030; 96372; 99283; J1885

== ENCOUNTER 2021-10-11 10:03 | Observation (INO) | payer MEDICARE, OTHER ==
[2021-10-11 10:45] LABS: Basophils % (A) 1 %; Eosinophils # (A) 0.1 k/uL (0-0.7); Eosinophils % (A) 1 %; HCT 39.7 % (39.0-53.0); HGB 12.8 gm/dL (13.0-17.5); Lymphocytes # (A) 1.6 k/uL (1.0-4.8); Lymphocytes % (A) 26 %; MCH 24.7 pg (25.0-35.0); MCHC 32.3 g/dL (31.0-37.0); MCV 76.6 fL (80.0-100.0); Mean Platelet Volume 7.8; Microcytosis Slight; Monocytes # (A) 0.4 k/uL (0-1.0); Monocytes % (A) 6 %; Neutrophils # (A) 4.1 k/uL (1.3-7.7); Neutrophils % (A) 66 %; Platelet Count 283 k/uL (150-450); RBC 5.18 m/uL (4.30-5.90); RDW 15.1 % (11.5-15.5); WBC 6.2 k/uL (3.8-10.6)
--- NOTE | 2021-10-11 10:55 | ED ---
General Adult HPI - General Chief complaint: Shortness of Breath Stated complaint: SOB Time Seen by Provider: 10/11/21 10:17 Source: patient, EMS Mode of arrival: ambulatory Limitations: no limitations - History of Present Illness Initial comments: Dictation was produced using [email or web address] dictation software. please excuse any grammatical, word or spelling errors. Chief Complaint: 56-year-old male presents emergency department for AICD site pain and episode of shortness of breath History of Present Illness: 56-year-old male is currently incarcerated. He was brought in by EMS accompanied by [facility] [address]. He was in court in the seated bad news and that guilty. During the court appearance patient began having shortness of breath. He reports that he feels fine at the moment. He complains of pain around his AICD site. Patient states he has a AICD for heart failure and multiple heart attacks in the past. Denies any fever. No shortness of breath at this time. Patient states he has pain to the inferior portion of his AICD. The ROS documented in this emergency department record has been reviewed and confirmed by me. Those systems with pertinent positive or negative responses have been documented in the HPI. All other systems are other negative and/or noncontributory. PHYSICAL EXAM: General Impression: Alert and oriented x3, not in acute distress HEENT: Normocephalic atraumatic, extra-ocular movements intact, pupils equal and reactive to light bilaterally, mucous membranes moist. Cardiovascular: Heart regular rate and rhythm Chest: Able to complete full sentences, no retractions, no tachypnea, probable AICD module, he does have reproducible palpable pain along the inferior portion of it Abdomen: abdomen soft, non-tender, non-distended, no organomegaly Musculoskeletal: Pulses present and equal in all extremities, no peripheral edema Motor: no focal deficits noted Neurological: CN II-XII grossly intact, no focal motor or sensory deficits noted Skin: Intact with no visualized rashes Psych: Normal affect and mood ED course: 56-year-old male presents to the emergency department for episode of shortness of breath and AICD site pain. Reports pain to his left anterior chest. There is however significant ACS history. Vital signs upon arrival are within acceptable limits. EKG is unremarkable. Laboratory evaluation obtained. CBC unremarkable. Coag panel metabolic panel is negative. Troponins 0.017. Patient has waxing and waning troponin levels since 2013. Patient's pain is unlikely to be ACS however given his extensive history he would require a second troponin. Patient be admitted observation for cardiac monitoring and serial troponins.'s custody Dr. Marshall who is wwilling accept patient's care. EKG interpretation: Ventricular rate 54, sinus bradycardia,. 150, Q is 114, QTc 396. No [place] prolongation, no QTC prolongation, no ST or T-wave changes noted. EKG compared to 10/15/2019 showing no changes. Overall, this EKG is unremarkable - Related Data Home Medications Medication Instructions Recorded Confirmed lisinopriL [Zestril] 2.5 mg PO DAILY 03/18/19 04/27/20 Atorvastatin [Lipitor] 40 mg PO HS 10/15/19 04/27/20 Dextroamphetamine/Amphetamine 10 mg PO TID 10/15/19 04/27/20 [Adderall] HYDROcodone/APAP 10-325MG [[place] 1 tab PO QID PRN 10/15/19 04/27/20 10-325] Metoprolol Succinate (ER) [Toprol 50 mg PO DAILY 04/27/20 04/27/20 Xl] Spironolactone [Aldactone] 25 mg PO DAILY 04/27/20 04/27/20 Allergies Allergy/AdvReac Type Severity Reaction Status Date / Time No Known Allergies Allergy Verified 10/11/21 10:10 Review of Systems ROS Statement: Those systems with pertinent positive or pertinent negative responses have been documented in the HPI. ROS Other: All systems not noted in ROS Statement are negative. Past Medical History Past Medical History: Coronary Artery Disease (CAD), Chest Pain / Angina, Heart Failure, Diabetes Mellitus, GERD/Reflux, Hyperlipidemia, Hypertension, Myocardial Infarction ([place]), Osteoarthritis (OA), Pneumonia, Renal Disease, Sleep Apnea/CPAP/BIPAP, Vascular Disorder Additional Past Medical History / Comment(s): HX OF [place] X2 (DATE UNKNOWN),CARDIOMYOPATHY, RESP FAILURE, djd, NO C-PAP. PNEUMONIA 06/2014. PVD, diet controlled diabetes,(lost over 200lbs from bariatric sx) Last Myocardial Infarction Date:: UNKNOWN History of Any Multi-Drug Resistant Organisms: None Reported Past Surgical History: AICD, Bariatric Surgery, Heart Catheterization, Hernia Repair, Joint Replacement, Orthopedic Surgery Additional Past Surgical History / Comment(s): HEART ONLY WORKS AT 35% PER PT. ATTEMPTED HEART CATH, VESSELS TOO SMALL 2012,. RT KNEE TENDON REPAIR,UMBILICAL HERNIA REPAIR. EGD 08/28/14.gastric sleeve 09/14. AICD ST CA 09/10/18, R hip 02/2019 Past Anesthesia/Blood Transfusion Reactions: No Reported Reaction Type of Cardiac Device: AICD Device Placement Date:: 09/10/18 Past Psychological History: ADD/ADHD, Anxiety, Depression Smoking Status: Current every day smoker Past Alcohol Use History: Rare Past Drug Use History: None Reported - Past Family History Father Family Medical History: Chest Pain / Angina, Congestive Heart Failure (CHF), COPD Mother Family Medical History: Diabetes Mellitus, GERD/Reflux General Exam Limitations: no limitations Course Vital Signs 10/11/21 10/11/21 10:07 10:10 Temperature 98.2 F Pulse Rate 51 L Respiratory 18 18 Rate Blood Pressure 128/79 O2 Sat by Pulse 97 Oximetry Medical Decision Making - Lab Data Result diagrams: 10/11/21 10:34 10/11/21 10:34 Lab Results 10/11/21 10/11/21 10/11/21 Range/Units 10:34 10:34 10:34 WBC 6.2 (3.8-10.6) k/uL RBC 5.18 (4.30-5.90) m/uL Hgb 12.8 L (13.0-17.5) gm/dL Hct 39.7 (39.0-53.0) % MCV 76.6 L (80.0-100.0) fL MCH 24.7 L (25.0-35.0) pg MCHC 32.3 (31.0-37.0) g/dL RDW 15.1 (11.5-15.5) % Plt Count 283 (150-450) k/uL MPV 7.8 Neutrophils % 66 % Lymphocytes % 26 % Monocytes % 6 % Eosinophils % 1 % Basophils % 1 % Neutrophils # 4.1 (1.3-7.7) k/uL Lymphocytes # 1.6 (1.0-4.8) k/uL Monocytes # 0.4 (0-1.0) k/uL Eosinophils # 0.1 (0-0.7) k/uL Basophils # 0.0 (0-0.2) k/uL Microcytosis Slight PT 11.3 (9.0-12.0) sec INR 1.0 (<1.2) APTT 24.2 (22.0-30.0) sec Sodium 137 (137-145) mmol/L Potassium 4.3 (3.5-5.1) mmol/L Chloride 108 H (98-107) mmol/L Carbon Dioxide 23 (22-30) mmol/L Anion Gap 6 mmol/L BUN 18 (9-20) mg/dL Creatinine 1.03 (0.66-1.25) mg/dL Est GFR (CKD-EPI)AfAm >90 (>60 ml/min/1.73 sqM) Est GFR (CKD-EPI)NonAf 82 (>60 ml/min/1.73 sqM) Glucose 105 H (74-99) mg/dL Calcium 8.7 (8.4-10.2) mg/dL Magnesium 2.0 (1.6-2.3) mg/dL Troponin I (0.000-0.034) ng/mL 10/11/21 Range/Units 10:34 WBC (3.8-10.6) k/uL RBC (4.30-5.90) m/uL Hgb (13.0-17.5) gm/dL Hct (39.0-53.0) % MCV (80.0-100.0) fL MCH (25.0-35.0) pg MCHC (31.0-37.0) g/dL RDW (11.5-15.5) % Plt Count (150-450) k/uL MPV Neutrophils % % Lymphocytes % % Monocytes % % Eosinophils % % Basophils % % Neutrophils # (1.3-7.7) k/uL Lymphocytes # (1.0-4.8) k/uL Monocytes # (0-1.0) k/uL Eosinophils # (0-0.7) k/uL Basophils # (0-0.2) k/uL Microcytosis PT (9.0-12.0) sec INR (<1.2) APTT (22.0-30.0) sec Sodium (137-145) mmol/L Potassium (3.5-5.1) mmol/L Chloride (98-107) mmol/L Carbon Dioxide (22-30) mmol/L Anion Gap mmol/L BUN (9-20) mg/dL Creatinine (0.66-1.25) mg/dL Est GFR (CKD-EPI)AfAm (>60 ml/min/1.73 sqM) Est GFR (CKD-EPI)NonAf (>60 ml/min/1.73 sqM) Glucose (74-99) mg/dL Calcium (8.4-10.2) mg/dL Magnesium (1.6-2.3) mg/dL Troponin I 0.017 (0.000-0.034) ng/mL Disposition Clinical Impression: Chest pain Disposition: ADMITTED IP TO THIS HOSP Condition: Fair Referrals: Susanne Gamino MD [Primary Care Provider] - 1-2 days
[2021-10-11 11:01] LABS: Partial Thromboplastin Time 24.2 sec (22.0-30.0); Prothrombin Time 11.3 sec (9.0-12.0)
[2021-10-11 11:04] LABS: African American GFR (CKD) >90 (>60 ml/min/1.73 sqM); Anion Gap 6 mmol/L; Blood Urea Nitrogen 18 mg/dL (9-20); Calcium 8.7 mg/dL (8.4-10.2); Carbon Dioxide 23 mmol/L (22-30); Chloride 108 mmol/L (98-107); Glucose 105 mg/dL (74-99); Non-African American GFR(CKD) 82 (>60 ml/min/1.73 sqM); Potassium 4.3 mmol/L (3.5-5.1); Sodium 137 mmol/L (137-145)
--- NOTE | 2021-10-11 11:10 | XR ---
EXAMINATION TYPE: XR chest 1V portable DATE OF EXAM: 10/11/2021 Comparison: 07/26/2019 Clinical History: 56-year-old male AICD site pain Findings: Left anterior chest wall ICD generator with right atrial and right ventricular leads. No obvious martinez ge is identified compared to prior exam. Heart borderline in size. No consolidation or pleural effusi on seen. Impression: 1. Left anterior chest wall AICD generator with right atrial and right ventricular leads. Overall kimberly earance is similar to the 2019 exam. 2. Borderline heart size. No acute pulmonary process seen.
[2021-10-11] MEDS ORDERED: ASPIRIN 81 MG PO STA (11:36)
[2021-10-11] MEDS ORDERED: NITROGLYCERIN SL TABS 0.4 MG TAB SUBLINGUAL PRN (11:39)
[2021-10-11] MEDS ORDERED: NALOXONE 0.4 MG/ML 1 ML VIAL IV PRN (12:18)
[2021-10-11] MEDS ORDERED: ACETAMINOPHEN TAB 325 MG TAB PO PRN (12:18)
--- NOTE | 2021-10-11 12:39 | P.HPIM ---
<James Finch - Last Filed: 10/11/21 12:15> History of Present Illness H&P Date: 10/11/21 History of Presenting Illness: Patient is a 56-year-old male with a past medical history of sick sinus syndrome status post ICD placement, systolic heart failure with a previously known EF of 35-40%, hypertension, and hyperlipidemia. He presented to the hospital with a chief complaint of chest pain. Patient currently in custody of [facility] and presented to the emergency department with reports of chest pain. Patient reports that he was in Court and pleasant guilty to his charges and suddenly had pain in the back of his neck radiating into the back of his head accompanied by a dizziness sensation and pain in his left anterior chest. In addition to this patient also reports having a strange taste in his mouth and feeling as though he was going to pass out. Patient denies having any changes in vision or hearing, palpitations, shortness of breath, or dyspnea with exertion. Patient reports he is unsure if his defibrillator fired, but states if it did he did not feel it. Patient further denies having any diaphoresis, nausea, vomiting, or experiencing any numbness/tingling/weakness in his extremities. In the emergency department, patient underwent full evaluation. Labs obtained with CBC and BMP showing no significant abnormalities. Troponin resulting in 0.017. EKG showing sinus bradycardia at 54 bpm with T-wave inversion in lateral leads I, aVL V5, and V6. Chest x-ray negative for acute cardiopulmonary process. Patient was admitted under our services with consultation to cardiology. Review of systems: Pertinent positives and negatives as discussed in HPI, a complete review of systems was performed and all other systems are negative. Physical exam: Vital signs reviewed and stable. General: Nontoxic, no distress and appears stated age. Derm: Skin warm and dry, normal coloration for ethnicity. Head: Atraumatic, normocephalic and symmetric. Eyes: EOMs intact, no lid lag, and anicteric sclera Mouth: no lip lesions, mucus membranes moist Cardiovascular: regular rate and rhythm with normal S1S2, no murmur, positive posterior tibial pulses bilaterally, and cap refill < [address] to left anterior chest. Lungs: Respirations even, regular, and unlabored on room air. Lungs CTA bilaterally, no rhonchi, no rales, no wheezing, and no accessory muscle usage. Abdominal: soft, nontender to palpation, no guarding, no appreciable organomegaly Ext: ROM intact. No gross muscle atrophy, no edema, no contractures. Neuro: Speech clear, face symmetrical and CN II-XII grossly intact with no noted focal neuro deficits Psych: Alert and oriented to person, place, time, and situation. Appropriate and pleasant affect. Assessment and Plan of Care: Atypical chest pain History of sick sinus syndrome status post ICD placement History of systolic heart failure with previously known EF of 35-40% Hypertension Hyperlipidemia -Cardiology consult -Telemetry monitoring and close monitoring of vital signs -Trend troponins -Echocardiogram -Cardiac diet -Continue daily Aspirin along with cardiac medication regimen once verified by pharmacy -Lipid profile with a.m. labs. The patient is admitted with an anticipated less than 2 midnight stay for evaluation of chest pain CODE STATUS: Full code DVT prophylaxis: Heparin Discussed with: Patient, MDOC officer and RN Anticipated discharge date: 1-[address]: Home A total of 40 minutes was spent on the care of this complex patient more than 50% of the time was spent in counseling and care coordination. Past Medical History Past Medical History: Coronary Artery Disease (CAD), Chest Pain / Angina, Heart Failure, Diabetes Mellitus, GERD/Reflux, Hyperlipidemia, Hypertension, Myocardial Infarction ([place]), Osteoarthritis (OA), Pneumonia, Renal Disease, Sleep Apnea/CPAP/BIPAP, Vascular Disorder Additional Past Medical History / Comment(s): HX OF [place] X2 (DATE UNKNOWN),CARDIOMYOPATHY, RESP FAILURE, djd, NO C-PAP. PNEUMONIA 06/2014. PVD, diet controlled diabetes,(lost over 200lbs from bariatric sx) Last Myocardial Infarction Date:: UNKNOWN History of Any Multi-Drug Resistant Organisms: None Reported Past Surgical History: AICD, Bariatric Surgery, Heart Catheterization, Hernia Repair, Joint Replacement, Orthopedic Surgery Additional Past Surgical History / Comment(s): HEART ONLY WORKS AT 35% PER PT. ATTEMPTED HEART CATH, VESSELS TOO SMALL 2012,. RT KNEE TENDON REPAIR,UMBILICAL HERNIA REPAIR. EGD 08/28/14.gastric sleeve 09/14. AICD ST CA 09/10/18, R hip 02/2019 Past Anesthesia/Blood Transfusion Reactions: No Reported Reaction Type of Cardiac Device: AICD Device Placement Date:: 09/10/18 Past Psychological History: ADD/ADHD, Anxiety, Depression Smoking Status: Current every day smoker Past Alcohol Use History: Rare Past Drug Use History: None Reported - Past Family History Father Family Medical History: Chest Pain / Angina, Congestive Heart Failure (CHF), COPD Mother Family Medical History: Diabetes Mellitus, GERD/Reflux Medications and Allergies Home Medications Medication Instructions Recorded Confirmed Type Dextroamphetamine/Amphetamine 10 mg PO BID 10/15/19 10/11/21 History [Adderall] HYDROcodone/APAP 5-325MG [[place] 1 tab PO TID PRN 10/11/21 10/11/21 History 5-325] Naloxone HCl [Narcan] 4 mg NASAL DIRECTED 10/11/21 10/11/21 History Aspirin 81 mg PO DAILY 30 Days #30 tab 10/12/21 Rx Atorvastatin [Lipitor] 40 mg PO HS 30 Days #30 tab 10/12/21 Rx carvediloL [Coreg] 3.125 mg PO BID-W/MEALS 30 Days 10/12/21 Rx #60 tab Allergies Allergy/AdvReac Type Severity Reaction Status Date / Time No Known Allergies Allergy Verified 10/11/21 10:10 Physical Exam Vitals: Vital Signs Temp Pulse Resp BP Pulse Ox 10/11/21 10:10 18 10/11/21 10:07 98.2 F 51 L 18 128/79 97 Intake and Output 10/10/21 10/11/21 10/11/21 22:59 06:59 14:59 Other: Weight 81.647 kg Results CBC & Chem 7: 10/11/21 10:34 10/11/21 10:34 Labs: Abnormal Lab Results - Last 24 Hours (Table) 10/11/21 10/11/21 Range/Units 10:34 10:34 Hgb 12.8 L (13.0-17.5) gm/dL MCV 76.6 L (80.0-100.0) fL MCH 24.7 L (25.0-35.0) pg Chloride 108 H (98-107) mmol/L Glucose 105 H (74-99) mg/dL <Dale Marshall - Last Filed: 10/12/21 18:48> History of Present Illness I reviewed the documentation as provided by the MARIAN above, who is the original author of this note. I agree with the documented assessment and plan, with the following changes: None Physical Exam Osteopathic Statement: *. No significant issues noted on an osteopathic structural exam other than those noted in the History and Physical/Consult. Vitals: Vital Signs Temp Pulse Resp BP Pulse Ox 10/12/21 13:55 98.3 F 51 L 18 119/78 100 10/12/21 07:00 97.9 F 63 20 94/59 96 10/12/21 03:00 97.8 F 50 L 14 108/71 98 10/11/21 20:37 98.0 F 71 16 108/69 100 Intake and Output 10/12/21 10/12/21 10/12/21 06:59 14:59 22:59 Other: # Voids 1 1 Results CBC & Chem 7: 10/12/21 05:35 10/12/21 05:35 Labs: Abnormal Lab Results - Last 24 Hours (Table) 10/12/21 10/12/21 Range/Units 05:35 05:35 Hgb 11.2 L (13.0-17.0) g/dL Hct 36.1 L (39.6-50.0) % MCV 77.5 L (80.0-97.0) fL MCH 24.0 L (27.0-32.0) pg MCHC 31.0 L (32.0-37.0) g/dL RDW 15.7 H (11.5-14.5) % Immature Gran # 0.05 H (0.00-0.04) X 10*3/uL Anion Gap 9.50 L (10.00-18.00) mmol/L Calcium 8.5 L (8.7-10.3) mg/dL Total Bilirubin <0.15 L (0.30-1.20) mg/dL Total Protein 5.9 L (6.2-8.2) g/dL Albumin 3.5 L (3.8-4.9) g/dL Albumin/Globulin Ratio 1.46 L (1.60-3.17) g/dL
[2021-10-11] MEDS: HEPARIN SODIUM,PORCINE/PF 5,000 UNIT/0.5 ML SYRINGE SQ SCH ×2 (15:59→19:59)
[2021-10-11] MEDS: HYDROcodone/APAP 5-325MG 1 EACH TAB PO SCH ×2 (15:59→21:30)
[2021-10-11] MEDS ORDERED: ATORVASTATIN 40 MG TAB PO SCH (21:00)
[2021-10-11] MEDS ORDERED: METOPROLOL TARTRATE 12.5 MG TAB PO SCH (21:00)
[2021-10-12] MEDS ORDERED: carvediloL 3.125 MG TAB PO SCH (09:00)
[2021-10-12] MEDS ORDERED: ASPIRIN 325 MG TAB PO SCH (09:00)
[2021-10-12] MEDS ORDERED: ASPIRIN 81 MG PO SCH (09:00)
[2021-10-12 09:04] LABS: Basophils # (A) 0.02 X 10*3/uL (0.00-0.10); Basophils % (A) 0.3 %; Eosinophils # (A) 0.05 X 10*3/uL (0.04-0.35); Eosinophils % (A) 0.8 %; HCT 36.1 % (39.6-50.0); HGB 11.2 g/dL (13.0-17.0); Immature Grans, Automated 0.8 %; Lymphocytes # (A) 2.22 X 10*3/uL (0.90-5.00); Lymphocytes % (A) 35.6 %; MCV 77.5 fL (80.0-97.0); Mean Platelet Volume 10.5 fL (9.5-12.2); Monocytes # (A) 0.61 X 10*3/uL (0.20-1.00); Monocytes % (A) 9.8 %; NRBC Per 100 WBC 0 /100 WBCS (0.0-0.0); Neutrophils # (A) 3.28 X 10*3/uL (1.80-7.70); Neutrophils % (A) 52.7 %; Platelet Count 260 X 10*3/uL (140-440); RBC 4.66 X 10*6/uL (4.40-5.60); RDW 15.7 % (11.5-14.5); WBC 6.23 X 10*3/uL (4.50-10.00)
[2021-10-12 09:14] LABS: ALT 10 U/L (10-49); AST 17 U/L (14-35); African American GFR (CKD) 78.4 (60.0-200.0); Albumin 3.5 g/dL (3.8-4.9); Albumin/Globulin Ratio 1.46 (1.60-3.17); Alkaline Phosphatase 100 U/L (41-126); BUN/Creat Ratio 17.92 Ratio (12.00-20.00); Blood Urea Nitrogen 21.5 mg/dL (9.0-27.0); Calcium 8.5 mg/dL (8.7-10.3); Carbon Dioxide 23.5 mmol/L (20.0-27.5); Chloride 106 mmol/L (96-109); Globulin 2.4 g/dL (1.6-3.3); Glucose 97 mg/dL (70-110); Non-African American GFR(CKD) 67.7 (60.0-200.0); Sodium 139 mmol/L (135-145); Total Bilirubin <0.15 mg/dL (0.30-1.20); Total Protein 5.9 g/dL (6.2-8.2)
[2021-10-12 09:27] LABS: Chol/HDL Ratio 2.82 Ratio
[2021-10-12] MEDS: HYDROcodone/APAP 5-325MG 1 EACH TAB PO SCH ×2 (09:58→15:25)
[2021-10-12] MEDS: HEPARIN SODIUM,PORCINE/PF 5,000 UNIT/0.5 ML SYRINGE SQ SCH ×2 (09:59→15:23)
--- NOTE | 2021-10-12 10:46 | P.CRDCN ---
History of Present Illness History of present illness: HISTORY OF PRESENT ILLNESS: This is a 56-year-old male with a past medical history significant for cardiomyopathy with previous AICD implantation, hypertension, hyperlipidemia, nicotine dependence. Patient follows in the office with Dr. Salazar. We have been asked to see the patient in consultation for chest pain. Patient examined at the bedside. Patient presented to the hospital yesterday from Court after pleading guilty to his charges secondary to chest pain. Patient states he was having chest pain in the left part of his chest. He also reports pain in his neck in the back of his head. He also reported some dizziness yesterday. This morning, his symptoms have resolved. Vital signs are stable. * EKG reveals sinus mechanism with T-wave inversions in lateral leads * Chest xray no acute process seen. * Laboratory data: WBC 6.23. Hemoglobin 11.2. Platelet count 260. Sodium 139. Potassium 5.0. BUN 21. Creatinine 1.2. Troponin negative 3. * Current home cardiac medications include none * Most recent echocardiogram obtained in August 2019 at the office revealed ejection fraction 45% * Patient underwent cardiac catheterization in 2012 revealing ejection fraction 35% and 100% proximal LAD REVIEW OF SYSTEMS: At the time of my exam: CONSTITUTIONAL: Denies fever or chills. HEENT: Denies blurred vision, vision changes, or eye pain. Denies hemoptysis CARDIOVASCULAR: Denies chest pain. Denies orthopnea. Denies PND. Denies palpitations RESPIRATORY: Denies shortness of breath. GASTROINTESTINAL: Denies abdominal pain. Denies nausea or vomiting. HEMATOLOGIC: Denies bleeding disorders. GENITOURINARY: Denies any blood in urine. SKIN: Denies pruitis. Denies rash. PHYSICAL EXAM: VITAL SIGNS: Reviewed. GENERAL: Well-developed in no acute distress. HEENT: Head is normocephalic. Pupils are equal, round. Sclerae anicteric. Mucous membranes of the mouth are moist. Neck supple. No JVD or thyromegaly LUNGS: Respirations even and unlabored. Lungs essentially clear to auscultation bilaterally. HEART: Regular rate and rhythm. S1 and S2 heard. ABDOMEN: Soft. Nondistended. Nontender. EXTREMITIES: Normal range of motion. No clubbing or cyanosis. Peripheral pulses intact. No lower extremity edema NEUROLOGIC: Awake and alert. Oriented x 3. ASSESSMENT: Chest pain, atypical, troponins negative 3 Coronary artery disease Ischemic cardiomyopathy with previous AICD implantation Hypertension Hyperlipidemia PLAN: An acute coronary event has been ruled out Continue aspirin and atorvastatin Discontinue metoprolol. Begin carvedilol 3.125mg twice a day Patient would benefit from an SUMIT/ARB. However will re-evaluate on an outpatient basis to see if BP will tolerate as his BP has been on the lower side and Coreg was just added today Patient may be discharged today from a cardiac standpoint Nurse practitioner note has been reviewed by physician. Signing provider agrees with the documented findings, assessment, and plan of care. Past Medical History Past Medical History: Coronary Artery Disease (CAD), Chest Pain / Angina, Heart Failure, Diabetes Mellitus, GERD/Reflux, Hyperlipidemia, Hypertension, Myocardial Infarction ([place]), Osteoarthritis (OA), Pneumonia, Renal Disease, Sleep Apnea/CPAP/BIPAP, Vascular Disorder Additional Past Medical History / Comment(s): HX OF [place] X2 (DATE UNKNOWN),CARDIOMYOPATHY, RESP FAILURE, djd, NO C-PAP. PNEUMONIA 06/2014. PVD, diet controlled diabetes,(lost over 200lbs from bariatric sx) Last Myocardial Infarction Date:: UNKNOWN History of Any Multi-Drug Resistant Organisms: None Reported Past Surgical History: AICD, Bariatric Surgery, Heart Catheterization, Hernia Repair, Joint Replacement, Orthopedic Surgery Additional Past Surgical History / Comment(s): HEART ONLY WORKS AT 35% PER PT. ATTEMPTED HEART CATH, VESSELS TOO SMALL 2012,. RT KNEE TENDON REPAIR,UMBILICAL HERNIA REPAIR. EGD 08/28/14.gastric sleeve 09/14. AICD ST CA 09/10/18, R hip 02/2019 Past Anesthesia/Blood Transfusion Reactions: No Reported Reaction Type of Cardiac Device: AICD Device Placement Date:: 09/10/18 Past Psychological History: ADD/ADHD, Anxiety, Depression Smoking Status: Current every day smoker Past Alcohol Use History: Rare Past Drug Use History: None Reported - Past Family History Father Family Medical History: Chest Pain / Angina, Congestive Heart Failure (CHF), COPD Additional Family Medical History / Comment(s): Father is alive Mother Family Medical History: Diabetes Mellitus, GERD/Reflux Additional Family Medical History / Comment(s): Mother is alive. Medications and Allergies Home Medications Medication Instructions Recorded Confirmed Type Dextroamphetamine/Amphetamine 10 mg PO BID 10/15/19 10/11/21 History [Adderall] HYDROcodone/APAP 5-325MG [[place] 1 tab PO TID PRN 10/11/21 10/11/21 History 5-325] Naloxone HCl [Narcan] 4 mg NASAL DIRECTED 10/11/21 10/11/21 History Allergies Allergy/AdvReac Type Severity Reaction Status Date / Time No Known Allergies Allergy Verified 10/11/21 10:10 Physical Exam Vitals: Vital Signs Temp Pulse Resp BP Pulse Ox 10/11/21 13:54 50 L 18 125/81 96 10/11/21 10:10 18 10/11/21 10:07 98.2 F 51 L 18 128/79 97 Intake and Output 10/10/21 10/11/21 10/11/21 22:59 06:59 14:59 Other: Weight 81.647 kg Results 10/12/21 05:35 10/12/21 05:35 Cardiac Enzymes 10/11/21 Range/Units 10:34 Troponin I 0.017 (0.000-0.034) ng/mL Coagulation 10/11/21 Range/Units 10:34 PT 11.3 (9.0-12.0) sec APTT 24.2 (22.0-30.0) sec CBC 10/11/21 Range/Units 10:34 WBC 6.2 (3.8-10.6) k/uL RBC 5.18 (4.30-5.90) m/uL Hgb 12.8 L (13.0-17.5) gm/dL Hct 39.7 (39.0-53.0) % Plt Count 283 (150-450) k/uL Comprehensive Metabolic Panel 10/11/21 Range/Units 10:34 Sodium 137 (137-145) mmol/L Potassium 4.3 (3.5-5.1) mmol/L Chloride 108 H (98-107) mmol/L Carbon Dioxide 23 (22-30) mmol/L BUN 18 (9-20) mg/dL Creatinine 1.03 (0.66-1.25) mg/dL Glucose 105 H (74-99) mg/dL Calcium 8.7 (8.4-10.2) mg/dL Current Medications Generic Name Dose Route Start Last Admin Trade Name Freq PRN Reason Stop Dose Admin Acetaminophen 650 mg 10/11/21 12:18 Acetaminophen Tab 325 Mg Tab PO Q6HR PRN Mild Pain or Fever > 100.5 Aspirin 325 mg 10/12/21 09:00 Aspirin 325 Mg Tab PO DAILY [facility] Atorvastatin Calcium 40 mg 10/11/21 21:00 Atorvastatin 40 Mg Tab PO HS [facility] Heparin Sodium (Porcine) 5,000 unit 10/11/21 16:00 Heparin Sodium,Porcine/Pf 5,000 Unit/0.5 Ml Syringe SQ Q8HR [facility] Metoprolol Tartrate 12.5 mg 10/11/21 21:00 Metoprolol Tartrate 12.5 Mg Tab PO BID [facility] Naloxone HCl 0.2 mg 10/11/21 12:18 Naloxone 0.4 Mg/Ml 1 Ml Vial IV Q2M PRN Opioid Reversal Nitroglycerin 0.4 mg 10/11/21 11:39 Nitroglycerin Sl Tabs 0.4 Mg Tab SUBLINGUAL Q5M PRN Chest Pain Intake and Output 10/10/21 10/11/21 10/11/21 22:59 06:59 14:59 Other: Weight 81.647 kg Patient Weight 10/12/21 06:59 Weight 81.647 kg 10/11/21 10:34 10/11/21 10:34
[2021-10-12 13:56] VITALS: BP 119/78; PULSE 51; RESP 18; TEMP 98.3
--- NOTE | 2021-10-12 14:38 | P.DS ---
<James Finch - Last Filed: 10/12/21 14:43> Providers Expected date of discharge: 10/12/21 Hospital Course: Discharge Diagnosis: Atypical chest pain, acute coronary event ruled out History of sick sinus syndrome status post ICD placement History of systolic heart failure with previously known EF of 35-40%, patient was started on carvedilol, atorvastatin, and aspirin. Hypertension Hyperlipidemia Hospital Course: Patient is a 56-year-old male with a past medical history of sick sinus syndrome status post ICD placement, systolic heart failure with a previously known EF of 35-40%, hypertension, and hyperlipidemia. He presented to the hospital with a chief complaint of chest pain. Patient currently in custody of [facility] and presented to the emergency department with reports of chest pain. Patient r eports that he was in court and upon pleading guilty to his charges he suddenly had pain in the back of his neck radiating into the back of his head accompanied by a dizziness sensation and pain in his left anterior chest. In addition to this patient also reports having a strange taste in his mouth and feeling as though he was going to pass out. Patient denied having any changes in vision or hearing, palpitations, shortness of breath, or dyspnea with exertion. Patient reports he is unsure if his defibrillator fired, but states if it did he did not feel it. Patient further denied having any diaphoresis, nausea, vomiting, or experiencing any numbness/tingling/weakness in his extremities. In the emergency department, patient underwent full evaluation. Labs obtained with CBC and BMP showing no significant abnormalities. Troponin resulting in 0.017. EKG showing sinus bradycardia at 54 bpm with T-wave inversion in lateral leads I, aVL V5, and V6. Chest x-ray negative for acute cardiopulmonary process. Patient was admitted under our services with consultation to cardiology. His troponins were trended with initial as reported above 0.017 followed by less than 0.012 and less than 0.012. He remained on continuous telemetry monitoring and vital signs were monitored closely. He underwent evaluation by cardiology and an echocardiogram was completed. Echocardiogram reviewed by senior reservoir engineer who cleared patient from cardiac standpoint recommending following up outpatient. Patient is medically stable and vital signs have remained unremarkable. Patient to continue carvedilol, atorvastatin and aspirin. Patient being discharged into custody of [facility] and to follow-up with senior care medical staff. Physical exam: Vital signs reviewed and stable. General: Nontoxic, no distress and appears stated age. Derm: Skin warm and dry, normal coloration for ethnicity. Head: Atraumatic, normocephalic and symmetric. Eyes: EOMs intact, no lid lag, and anicteric sclera Mouth: no lip lesions, mucus membranes moist Cardiovascular: regular rate and rhythm with normal S1S2, no murmur, positive posterior tibial pulses bilaterally, and cap refill < [address] to left anterior chest. Lungs: Respirations even, regular, and unlabored on room air. Lungs CTA bilaterally, no rhonchi, no rales, no wheezing, and no accessory muscle usage. Abdominal: soft, nontender to palpation, no guarding, no appreciable organomegaly Ext: ROM intact. No gross muscle atrophy, no edema, no contractures. Neuro: Speech clear, face symmetrical and CN II-XII grossly intact with no noted focal neuro deficits Psych: Alert and oriented to person, place, time, and situation. Appropriate and pleasant affect. A total of 33 minutes of time were spent preparing this complex discharge summary. Patient Condition at Discharge: Stable Plan - Discharge Summary Discharge Rx Participant: No New Discharge Prescriptions: New carvediloL [Coreg] 3.125 mg PO BID-W/MEALS 30 Days #60 tab Atorvastatin [Lipitor] 40 mg PO HS 30 Days #30 tab Aspirin 81 mg PO DAILY 30 Days #30 tab Continue Dextroamphetamine/Amphetamine [Adderall] 10 mg PO BID HYDROcodone/APAP 5-325MG [[place] 5-325] 1 tab PO TID PRN PRN Reason: Pain Naloxone HCl [Narcan] 4 mg NASAL DIRECTED Discharge Medication List Dextroamphetamine/Amphetamine [Adderall] 10 mg PO BID 10/15/19 [History] HYDROcodone/APAP 5-325MG [[place] 5-325] 1 tab PO TID PRN 10/11/21 [History] Naloxone HCl [Narcan] 4 mg NASAL DIRECTED 10/11/21 [History] Aspirin 81 mg PO DAILY 30 Days #30 tab 10/12/21 [Rx] Atorvastatin [Lipitor] 40 mg PO HS 30 Days #30 tab 10/12/21 [Rx] carvediloL [Coreg] 3.125 mg PO BID-W/MEALS 30 Days #60 tab 10/12/21 [Rx] Follow up Appointment(s)/Referral(s): Susanne Gamino MD [Primary Care Provider] - 1-2 days Activity/Diet/Wound Care/Special Instructions: Activity: As tolerated. Take breaks as needed. Diet: Heart healthy and carb consistent diet. Avoid salts, or foods with hidden salts such as canned or boxed foods and frozen dinners. Extra salt makes your heart work harder and traps the fluid in your body for longer. Special Instructions: Please continue to take all of your medications as directed. Discharge Disposition: DC/TRANSFER COURT/LAW <Dale Marshall - Last Filed: 10/12/21 18:46> Providers Date of admission: 10/11/21 11:39 Attending physician: Dale Marshall MD Primary care physician: Susanne Gamino [place] Hospital Course: I reviewed the documentation as provided by the MARIAN above, who is the original author of this note. I agree with the documented assessment and plan, with the following changes: None
--- NOTE | 2021-10-13 08:21 | ECHOF ---
Referral Reason:Evaluate structure and function of heart MEASUREMENTS -------- HEIGHT: 170.2 cm WEIGHT: 81.6 kg BP: 128/79 IVSd: 1.2 cm (0.6 - 1.1) LVIDd: 5.8 cm (3.9 - 5.3) LVPWd: 1.1 cm (0.6 - 1.1) EDV(Teich): 168 ml IVSs: 1.3 cm LVIDs: 4.6 cm LVPWs: 1.8 cm %IVS Thck: 11 % ESV(Teich): 98 ml EF(Teich): 42 % %FS: 21 % SV(Teich): 70 ml LA Diam: 4.0 cm (2.7 - 3.8) RVIDd: 3.3 cm (< 3.3) LVLd A4C: 8.8 cm LVEDV MOD A4C: 161 ml LVLs A4C: 8.6 cm LVESV MOD A4C: 101 ml LVEF MOD A4C: 37 % SV MOD A4C: 60 ml LVLd A2C: 9.6 cm LVEDV MOD A2C: 202 ml LVLs A2C: 5.0 cm LVESV MOD A2C: 86 ml LVEF MOD A2C: 57 % SV MOD A2C: 116 ml EF Biplane: 37 % LVEDV MOD BP: 188 ml LVESV MOD BP: 119 ml LALs A4C: 5.6 cm LAAs A4C: 23.7 cm LAESV A-L A4C: 84 ml LAESV MOD A4C: 82 ml LALs A2C: 5.8 cm LAAs A2C: 20.3 cm LAESV A-L A2C: 60 ml LAESV MOD A2C: 58 ml LAESV(A-L): 72 ml LAESV Index (A-L): 37.30 ml/m Ao Diam: 3.1 cm (2.0 - 3.7) AV Cusp: 2.1 cm (1.5 - 2.6) EPSS: 0.9 cm MV E Brain: 1.21 m/s MV DecT: [address] [facility]: 4.9 m/s MV A Brain: 0.75 m/s MV E/A Ratio: 1.62 MV PHT: 72 ms AV Vmax: 1.48 m/s AV maxP.79 mmHg TR Vmax: 3.04 m/s TR maxP.06 mmHg RAP: 5.00 mmHg RVSP: 42.06 mmHg MV EF SLOPE: 65.61 mm/s (70 - 150) MV EXCURSION: 14.64 mm (> 18.000) FINDINGS -------- Paced rhythm. This was a technically good study. The left ventricular size is normal. There is borderline concentric left ventricular hypertrophy. Overall left ventricular systolic function is moderate-severely impaired with, an EF between 30 - 35 %. Mid anterior LV wall motion is hypokinetic. Apical anterior LV wall motion is hypokinetic. Apical lateral LV wall motion is hypokinetic. Apical inferior LV wall motion is hypokinetic. Apical septum LV wall motion is hypokinetic. The right ventricle is mildly enlarged. LA is moderately dilated 34-39 ml/m2 The right atrium is normal in size. Interatrial and interventricular septum intact. There is mild aortic regurgitation. The mitral valve is normal. Mild tricuspid regurgitation present. There is mild pulmonary hypertension. The right ventricular systolic pressure, as measured by Doppler, is 42.06mmHg. Trace/mild (physiologic) pulmonic regurgitation. The aortic root size is normal. Normal inferior vena cava with normal inspiratory collapse consistent with estimated right atrial pre ssure of 5 mmHg. There is no pericardial effusion. CONCLUSIONS -------- 1. The left ventricular size is normal. 2. There is borderline concentric left ventricular hypertrophy. 3. Overall left ventricular systolic function is moderate-severely impaired with, an EF between 30 - 35 %. 4. Mid anterior LV wall motion is hypokinetic. 5. Apical anterior LV wall motion is hypokinetic. 6. Apical lateral LV wall motion is hypokinetic. 7. Apical inferior LV wall motion is hypokinetic. 8. Apical septum LV wall motion is hypokinetic. 9. The right ventricle is mildly enlarged. 10. LA is moderately dilated 34-39 ml/m2 11. There is mild aortic regurgitation. 12. Mild tricuspid regurgitation present. 13. There is mild pulmonary hypertension. 14. The right ventricular systolic pressure, as measured by Doppler, is 42.06mmHg. 15. Trace/mild (physiologic) pulmonic regurgitation. 16. There is no pericardial effusion. DECK ENGINEER: Delmy Vale RDCS
== END 2021-10-12 16:00 ==
LOC: EC 10:03 → 6NMEDSUR 11:39
PROVIDERS: ADMIT Internal Medicine; ATTEND Internal Medicine
DX: R07.89 Other chest pain (principal); I49.5 Sick sinus syndrome; I11.0 Hypertensive heart disease with heart failure; I50.22 Chronic systolic (congestive) heart failure; R06.02 Shortness of breath; M54.2 Cervicalgia; M54.9 Dorsalgia, unspecified; R42 Dizziness and giddiness; E78.5 Hyperlipidemia, unspecified; G47.30 Sleep apnea, unspecified; I25.10 Atherosclerotic heart disease of native coronary artery without angina pectoris; I25.2 Old myocardial infarction; I25.5 Ischemic cardiomyopathy; E11.51 Type 2 diabetes mellitus with diabetic peripheral angiopathy without gangrene; F17.200 Nicotine dependence, unspecified, uncomplicated; F32.A Depression, unspecified; F41.9 Anxiety disorder, unspecified; F90.9 Attention-deficit hyperactivity disorder, unspecified type; Z87.01 Personal history of pneumonia (recurrent); Z71.3 Dietary counseling and surveillance; Z98.84 Bariatric surgery status; K21.9 Gastro-esophageal reflux disease without esophagitis; M19.90 Unspecified osteoarthritis, unspecified site; N28.9 Disorder of kidney and ureter, unspecified; Z79.82 Long term (current) use of aspirin; Z79.899 Other long term (current) drug therapy; Z95.810 Presence of automatic (implantable) cardiac defibrillator; Z82.49 Family history of ischemic heart disease and other diseases of the circulatory system; Z82.5 Family history of asthma and other chronic lower respiratory diseases; Z83.3 Family history of diabetes mellitus
CPT/HCPCS: 99285; 96372 ×2; 36415; 93005; 93306; 80061; 80053; 80048; 83735; 84484; 85025 ×2; 85610; 85730; 83721; 71045; G0378 ×2; J1644 ×2

== ENCOUNTER 2021-12-07 10:42 | Observation (INO) | payer MEDICARE, OTHER ==
[2021-12-07] MEDS ORDERED: SODIUM CHLORIDE 0.9% 500 ML 500 ML IV STA (11:01)
[2021-12-07] MEDS ORDERED: HYDROcodone/APAP 5-325MG 1 EACH TAB PO STA (11:01)
--- NOTE | 2021-12-07 11:12 | ED ---
General Adult HPI - General Chief complaint: Syncope Stated complaint: Syncope Time Seen by Provider: 12/07/21 10:55 Source: police, EMS, RN notes reviewed, old records reviewed Mode of arrival: EMS Limitations: no limitations - History of Present Illness Initial comments: 56-year-old male, alert and oriented 4, presents via police from long term with complaints of syncopal episode today. He denies chest pain or difficulty in breathing. He denies hitting his head or headache at this time. Patient was diagnosed with coronavirus 2 days ago. States symptoms started 3 days prior with diarrhea and back pain. States that he is having diarrhea at least twice a day, denies vomiting or fevers. Patient has been vaccinated against coronavirus. Per EMS oxygen saturation is 94% on room air. He does have a history of coronary artery disease, diabetes, hypertension, renal disease, heart failure, myocardial infarction 2 and has an AICD. Patient states he also has chronic back pain which he takes [place] for. -: hour(s) Location: back Quality: aching, constant Consistency: constant Worsens with: movement Associated Symptoms: syncope, other (Diarrhea) Treatments Prior to Arrival: other (Oxygen) - Related Data Home Medications Medication Instructions Recorded Confirmed Acetaminophen Tab [Tylenol] 650 mg PO BID PRN 12/07/21 12/07/21 Omeprazole 20 mg PO DAILY 12/07/21 12/07/21 buPROPion XL [Wellbutrin XL] 150 mg PO HS 12/07/21 12/07/21 carvediloL [Coreg] 3.125 mg PO DAILY 12/07/21 12/07/21 Previous Rx's Medication Instructions Recorded Aspirin 81 mg PO DAILY 30 Days #30 tab 10/12/21 Atorvastatin [Lipitor] 40 mg PO HS 30 Days #30 tab 10/12/21 Allergies Allergy/AdvReac Type Severity Reaction Status Date / Time No Known Allergies Allergy Verified 12/07/21 11:13 Review of Systems ROS Statement: Those systems with pertinent positive or pertinent negative responses have been documented in the HPI. ROS Other: All systems not noted in ROS Statement are negative. Past Medical History Past Medical History: Coronary Artery Disease (CAD), Chest Pain / Angina, Heart Failure, Diabetes Mellitus, GERD/Reflux, Hyperlipidemia, Hypertension, Myocardial Infarction (NC), Osteoarthritis (OA), Pneumonia, Renal Disease, Sleep Apnea/CPAP/BIPAP, Vascular Disorder Additional Past Medical History / Comment(s): HX OF NC X2 (DATE UNKNO WN),CARDIOMYOPATHY, RESP FAILURE, djd, NO C-PAP. PNEUMONIA 06/2014. PVD, diet controlled diabetes,(lost over 200lbs from bariatric sx) Last Myocardial Infarction Date:: UNKNOWN History of Any Multi-Drug Resistant Organisms: None Reported Past Surgical History: AICD, Bariatric Surgery, Heart Catheterization, Hernia Repair, Joint Replacement, Orthopedic Surgery Additional Past Surgical History / Comment(s): HEART ONLY WORKS AT 35% PER PT. ATTEMPTED HEART CATH, VESSELS TOO SMALL 2012,. RT KNEE TENDON REPAIR,UMBILICAL HERNIA REPAIR. EGD 08/28/14.gastric sleeve 09/14. AICD ST CA 09/10/18, R hip 02/2019 Past Anesthesia/Blood Transfusion Reactions: No Reported Reaction Type of Cardiac Device: AICD Device Placement Date:: 09/10/18 Past Psychological History: ADD/ADHD, Anxiety, Depression Smoking Status: Current every day smoker Past Alcohol Use History: Rare Past Drug Use History: None Reported - Past Family History Father Family Medical History: Chest Pain / Angina, Congestive Heart Failure (CHF), COPD Additional Family Medical History / Comment(s): Father is alive Mother Family Medical History: Diabetes Mellitus, GERD/Reflux Additional Family Medical History / Comment(s): Mother is alive. General Exam Limitations: no limitations General appearance: alert, in no apparent distress Head exam: Present: atraumatic, normocephalic Eye exam: Present: normal appearance. Absent: scleral icterus, conjunctival injection, periorbital swelling, periorbital tenderness ENT exam: Present: normal exam, normal oropharynx, mucous membranes moist Neck exam: Present: normal inspection. Absent: meningismus, lymphadenopathy, thyromegaly Respiratory exam: Present: normal lung sounds bilaterally. Absent: respiratory distress, wheezes, rales, rhonchi, stridor, chest wall tenderness, accessory m uscle use, decreased breath sounds Cardiovascular Exam: Present: regular rate GI/Abdominal exam: Present: soft. Absent: distended, tenderness Extremities exam: Present: normal capillary refill. Absent: pedal edema Back exam: Present: normal inspection, tenderness (Pain with palpation to cervical thoracic and lumbar sacral spine). Absent: CVA tenderness (R), CVA tenderness (L), paraspinal tenderness, rash noted Expanded Back exam: Absent: saddle anesthesia Back exam: Negative Straight Leg Raising: Left, Right Neurological exam: Present: alert, oriented X3 Expanded Patient oriented to: Present: person, place, time Speech: Present: fluid speech Cranial nerves: EOM's Intact: Normal, Gag Reflex: Normal, Tongue Deviation: Normal Motor strength exam: RUE: 5, LUE: 5, RLE: 5, LLE: 5 Eye Response: (4) open spontaneously Motor Response: (6) obeys commands Verbal Response: (5) oriented [place] Total: 15 Psychiatric exam: Present: normal affect, normal mood Skin exam: Present: warm, dry, normal color. Absent: rash, cyanosis, diaphoretic, petechiae, pallor Course Vital Signs 12/07/21 12/07/21 12/07/21 10:49 11:44 12:52 Temperature 98.3 F Pulse Rate 69 70 Respiratory 16 16 Rate Blood Pressure 95/69 131/85 O2 Sat by Pulse 100 99 100 Oximetry 12/07/21 14:42 Temperature Pulse Rate 64 Respiratory 16 Rate Blood Pressure 107/74 O2 Sat by Pulse 97 Oximetry EKG Findings - EKG Results: EKG: sinus rhythm (Ventricular rate 55, OH interval 0.160, QRS 0.114, QTC 0.397), not changed from: EKG shows: bradycardia Medical Decision Making - Medical Decision Making Chest x-ray shows no acute cardiopulmonary process. Troponin is negative at 0.021. EKG shows sinus bradycardia with a ventricular rate of 55 changes compared to 10/11/2021. Patient is coronavirus positive. He was given monoclonal antibodies infusion as he has not been admitted for hypoxia. He was also given 500 mL normal saline bolus and his blood pressure has improved to 131/85. Due to his significant cardiac history, he will be placed in observation for evaluation of syncope. Patient is agreeable to this plan of care. Case discussed with Dr. Ferreira. - Lab Data Result diagrams: 12/07/21 11:30 12/07/21 11:30 Lab Results 12/07/21 12/07/21 12/07/21 Range/Units 11:30 11:30 11:30 WBC 3.2 L (3.8-10.6) k/uL RBC 5.11 (4.30-5.90) m/uL Hgb 13.0 (13.0-17.5) gm/dL Hct 41.0 (39.0-53.0) % MCV 80.2 (80.0-100.0) fL MCH 25.4 (25.0-35.0) pg MCHC 31.7 (31.0-37.0) g/dL RDW 16.6 H (11.5-15.5) % Plt Count 234 (150-450) k/uL MPV 8.3 Neutrophils % 53 % Lymphocytes % 26 % Monocytes % 16 % Eosinophils % 0 % Basophils % 1 % Neutrophils # 1.7 (1.3-7.7) k/uL Lymphocytes # 0.8 L (1.0-4.8) k/uL Monocytes # 0.5 (0-1.0) k/uL Eosinophils # 0.0 (0-0.7) k/uL Basophils # 0.0 (0-0.2) k/uL Manual Slide Review Performed Hypochromasia Slight Anisocytosis Slight Microcytosis Slight PT 11.9 (9.0-12.0) sec INR 1.1 (<1.2) APTT 25.7 (22.0-30.0) sec Sodium 137 (137-145) mmol/L Potassium 4.5 (3.5-5.1) mmol/L Chloride 103 (98-107) mmol/L Carbon Dioxide 24 (22-30) mmol/L Anion Gap 10 mmol/L BUN 22 H (9-20) mg/dL Creatinine 1.28 H (0.66-1.25) mg/dL Est GFR (CKD-EPI)AfAm 72 (>60 ml/min/1.73 sqM) Est GFR (CKD-EPI)NonAf 63 (>60 ml/min/1.73 sqM) Glucose 76 (74-99) mg/dL Calcium 8.6 (8.4-10.2) mg/dL Magnesium 2.1 (1.6-2.3) mg/dL Total Bilirubin 0.6 (0.2-1.3) mg/dL AST 58 (17-59) U/L ALT 27 (4-49) U/L Alkaline Phosphatase 85 (38-126) U/L Troponin I (0.000-0.034) ng/mL Total Protein 7.5 (6.3-8.2) g/dL Albumin 4.0 (3.5-5.0) g/dL Coronavirus (PCR) (Not Detectd) Influenza Type A RNA (Not Detectd) Influenza Type B (PCR) (Not Detectd) 12/07/21 12/07/21 12/07/21 Range/Units 11:30 11:50 11:50 WBC (3.8-10.6) k/uL RBC (4.30-5.90) m/uL Hgb (13.0-17.5) gm/dL Hct (39.0-53.0) % MCV (80.0-100.0) fL MCH (25.0-35.0) pg MCHC (31.0-37.0) g/dL RDW (11.5-15.5) % Plt Count (150-450) k/uL MPV Neutrophils % % Lymphocytes % % Monocytes % % Eosinophils % % Basophils % % Neutrophils # (1.3-7.7) k/uL Lymphocytes # (1.0-4.8) k/uL Monocytes # (0-1.0) k/uL Eosinophils # (0-0.7) k/uL Basophils # (0-0.2) k/uL Manual Slide Review Hypochromasia Anisocytosis Microcytosis PT (9.0-12.0) sec INR (<1.2) APTT (22.0-30.0) sec Sodium (137-145) mmol/L Potassium (3.5-5.1) mmol/L Chloride (98-107) mmol/L Carbon Dioxide (22-30) mmol/L Anion Gap mmol/L BUN (9-20) mg/dL Creatinine (0.66-1.25) mg/dL Est GFR (CKD-EPI)AfAm (>60 ml/min/1.73 sqM) Est GFR (CKD-EPI)NonAf (>60 ml/min/1.73 sqM) Glucose (74-99) mg/dL Calcium (8.4-10.2) mg/dL Magnesium (1.6-2.3) mg/dL Total Bilirubin (0.2-1.3) mg/dL AST (17-59) U/L ALT (4-49) U/L Alkaline Phosphatase (38-126) U/L Troponin I 0.021 (0.000-0.034) ng/mL Total Protein (6.3-8.2) g/dL Albumin (3.5-5.0) g/dL Coronavirus (PCR) Detected A (Not Detectd) Influenza Type A RNA Not Detected (Not Detectd) Influenza Type B (PCR) Not Detected (Not Detectd) Disposition Clinical Impression: COVID-19, Syncope, Hypotension, Chronic back pain Disposition: ADMITTED IP TO THIS [facility] Condition: Good Decision Date: 12/07/21 Decision Time: 12:39
[2021-12-07 11:58] LABS: Anisocytosis Slight; Basophils % (A) 1 %; Eosinophils % (A) 0 %; Hypochromasia Slight; Lymphocytes # (A) 0.8 k/uL (1.0-4.8); Lymphocytes % (A) 26 %; MCH 25.4 pg (25.0-35.0); MCHC 31.7 g/dL (31.0-37.0); MCV 80.2 fL (80.0-100.0); Mean Platelet Volume 8.3; Microcytosis Slight; Monocytes # (A) 0.5 k/uL (0-1.0); Monocytes % (A) 16 %; Neutrophils # (A) 1.7 k/uL (1.3-7.7); Neutrophils % (A) 53 %; Platelet Count 234 k/uL (150-450); RBC 5.11 m/uL (4.30-5.90); RDW 16.6 % (11.5-15.5); WBC 3.2 k/uL (3.8-10.6)
[2021-12-07 12:02] LABS: INR 1.1 (<1.2); Partial Thromboplastin Time 25.7 sec (22.0-30.0); Prothrombin Time 11.9 sec (9.0-12.0)
[2021-12-07 12:09] LABS: Calcium 8.6 mg/dL (8.4-10.2); Total Bilirubin 0.6 mg/dL (0.2-1.3)
[2021-12-07 12:12] LABS: Magnesium 2.1 mg/dL (1.6-2.3); Potassium 4.5 mmol/L (3.5-5.1); Total Protein 7.5 g/dL (6.3-8.2)
--- NOTE | 2021-12-07 12:35 | XR ---
EXAMINATION TYPE: XR chest 2V DATE OF EXAM: 12/07/2021 COMPARISON: 10/11/2021 HISTORY: 56-year-old male with syncope TECHNIQUE: PA and lateral views FINDINGS: Left anterior chest wall ICD generator with right atrial and right ventricular leads. Heart upper el its of normal in size. Mild interstitial prominence has a chronic appearance. Some strandy atelectasi s at the right base. Partial ossification along the right coracoclavicular ligament compatible with p rior injury at the AC joint. No consolidation or pleural effusion. IMPRESSION: Borderline heart size. No acute cardiopulmonary process.
[2021-12-07] MEDS ORDERED: BEBTELOVIMAB (EUA) 175 MG/2 ML VIAL IV ONE (12:45)
[2021-12-07] MEDS ORDERED: NALOXONE 0.4 MG/ML 1 ML VIAL IV PRN (13:07)
[2021-12-07 13:57] LABS: Appearance,Urine Clear (Clear); Bilirubin,Urine Negative (Negative); Blood,Urine Negative (Negative); Color,Urine Light Yellow; Glucose,Urine (UA) 2+ (Negative); Ketones,Urine Negative (Negative); Leukocyte Esterase,Urine Negative (Negative); Nitrite,Urine Negative (Negative); PH, Urine 5.5 (5.0-8.0); Protein,Urine Negative (Negative); Specific Gravity,Urine 1.006 (1.001-1.035); Urobilinogen,Urine <2.0 mg/dL (<2.0)
--- NOTE | 2021-12-07 14:50 | P.HPIM ---
History of Present Illness H&P Date: 12/07/21 History of Presenting Illness: Patient is a 56-year-old male with a past medical history of CAD with previous AR's, sick sinus syndrome status post AICD placement, chronic systolic heart failure with previously known EF of 30-35%, hypertension, hyperlipidemia, and bariatric surgery (gastric sleeve). He presented to the emergency department in custody of [employer] officer with a chief complaint of syncopal episode. Patient reports he has generally been feeling unwell over the past 6 days reporting generalized fatigue, malaise, chills, occasional cough, diarrhea and diaphoresis. Patient reports he underwent testing for Covid and tested positive on 12/05/21 at [facility]. Patient does report receiving 2 vaccinations but states he did not receive his booster. Patient states this morning he was feeling slightly off and weak almost as though he was going to pass out and was lightheaded so he went to the medical clinic for eval uation and to have his blood pressure checked. Patient reports while sitting in the office getting his blood pressure checked he believes he passed out while sitting in the chair because his head nodded off and then he believes he awoken and jerked his head back up. Pt states this only lasted a couple of seconds and denies falling from the chair or obtaining any injuries. Pt denies experiencing any known fevers, headache, changes in his vision or hearing,chest pain or palpitations, shortness of breath, abdominal pain, nausea, vomiting, or experiencing any numbness/tingling/weakness/swelling in his extremities. he underwent full evaluation in the emergency department. He was found to have mild leukopenia with WBC count of 3.2, BUN 22 and creatinine of 1.28 with baseline creatinine of 1.2. Urinalysis was negative for infection. Covid PCR was positive. Influenza A and B were negative. Chest x-ray negative for acute cardiopulmonary process. EKG revealing sinus bradycardia at 55 bpm with anterolateral T-wave inversion in leads V4 through V6. upon arrival patient was slightly hypotensive with blood pressure 95/69. Patient was given a 1 L bolus of 0.9% normal saline in the ED with resolution of hypotension and repeat blood pressure of 131/85. Patient denied having shortness of breath and SpO2 is 100% on room air. Patient was given Bebtelovimab in ED and then admitted under our s ervices with consultation to cardiology. Review of systems: Pertinent positives and negatives as discussed in HPI, a complete review of systems was performed and all other systems are negative. Physical exam: Vital signs reviewed and stable. General: Nontoxic, no distress and appears stated age. Derm: Skin warm and dry, normal coloration for ethnicity. Head: Atraumatic, normocephalic and symmetric. Eyes: EOMs intact, no lid lag, and anicteric sclera Mouth: no lip lesions, mucus membranes moist Cardiovascular: regular rate and rhythm with normal S1S2, soft systolic murmur, positive posterior tibial pulses bilaterally, and cap refill < 2 seconds. Lungs: Respirations even, regular, and unlabored on room air. Lungs CTA bilaterally, no rhonchi, no rales, no wheezing, and no accessory muscle usage. Abdominal: soft, nontender to palpation, no guarding, no appreciable organomegaly Ext: ROM intact. No gross muscle atrophy, no edema, no contractures Neuro: Speech clear, face symmetrical and CN II-XII grossly intact with no noted focal neuro deficits Psych: Alert and oriented to person, place, time, and situation. Appropriate and pleasant affect. Assessment and Plan of Care: Syncopal episode Hypotension, likely resulting from dehydration from secondary to diarrhea Bradycardia COVID 19 virus with diarrhea Dehydration History sick sinus syndrome status post AICD placement Chronic systolic heart failure with previously known EF of 30-35% -Cardiology consulted secondary to syncopal episode and hypotension -Patient received IV fluid bolus secondary to concerns of dehydration and hypotension resolved. -Patient received Bebtelovimab in ED. -Continuous Telemetry monitoring. -Obtain a stat d-dimer and Trend inflammatory markers -Encourage Incentive Spirometry 10-15x hourly while awake -Continue vitamin C, Vitamin D, and Zinc. -DVT prophylaxis with Lovenox. -Strict Droplet plus Contact precautions Hypertension -Monitor vital signs and parameters placed on patient's daily carvedilol to hold for systolic pressure less than 100 and/or heart rate less than 60 secondary to findings of bradycardia and hypotension. Hyperlipidemia -Continue daily medication regimen with atorvastatin. The patient is admitted with an anticipated less than 2 midnight stay for evaluation of syncopal episode and hypotension likely resulting from dehydration CODE STATUS: Full code DVT prophylaxis: Lovenox Discussed with: Patient and bank officer at bedside Anticipated discharge date: 1-[address]: release into custody of [employer] officers A total of 40 minutes was spent on the care of this complex patient more than 50% of the time was spent in counseling and care coordination. I reviewed the documentation as provided by the MARIAN above, who is the original author of this note. I agree with the documented assessment and plan, with the following changes: none Past Medical History Past Medical History: Coronary Artery Disease (CAD), Chest Pain / Angina, Heart Failure, Diabetes Mellitus, GERD/Reflux, Hyperlipidemia, Hypertension, Myocardial Infarction (AR), Osteoarthritis (OA), Pneumonia, Renal Disease, Sleep Apnea/CPAP/BIPAP, Vascular Disorder Additional Past Medical History / Comment(s): HX OF [place] X2 (DATE UNKNOWN),CARDIOMYOPATHY, RESP FAILURE, djd, NO C-PAP. PNEUMONIA 06/2014. PVD, diet controlled diabetes,(lost over 200lbs from bariatric sx) Last Myocardial Infarction Date:: UNKNOWN History of Any Multi-Drug Resistant Organisms: None Reported Past Surgical History: AICD, Bariatric Surgery, Heart Catheterization, Hernia Repair, Joint Replacement, Orthopedic Surgery Additional Past Surgical History / Comment(s): HEART ONLY WORKS AT 35% PER PT. ATTEMPTED HEART CATH, VESSELS TOO SMALL 2012,. RT KNEE TENDON REPAIR,UMBILICAL HERNIA REPAIR. EGD 08/28/14.gastric sleeve 09/14. AICD ST CA 09/10/18, R hip 02/2019 Past Anesthesia/Blood Transfusion Reactions: No Reported Reaction Type of Cardiac Device: AICD Device Placement Date:: 09/10/18 Past Psychological History: ADD/ADHD, Anxiety, Depression Smoking Status: Current every day smoker Past Alcohol Use History: Rare Past Drug Use History: None Reported - Past Family History Father Family Medical History: Chest Pain / Angina, Congestive Heart Failure (CHF), COPD Additional Family Medical History / Comment(s): Father is alive Mother Family Medical History: Diabetes Mellitus, GERD/Reflux Additional Family Medical History / Comment(s): Mother is alive. Medications and Allergies Home Medications Medication Instructions Recorded Confirmed Type Aspirin 81 mg PO DAILY 30 Days #30 tab 10/12/21 12/07/21 Rx Atorvastatin [Lipitor] 40 mg PO HS 30 Days #30 tab 10/12/21 12/07/21 Rx Acetaminophen Tab [Tylenol] 650 mg PO BID PRN 12/07/21 12/07/21 History Omeprazole 20 mg PO DAILY 12/07/21 12/07/21 History buPROPion XL [Wellbutrin XL] 150 mg PO HS 12/07/21 12/07/21 History carvediloL [Coreg] 3.125 mg PO DAILY #0 12/08/21 12/07/21 Rx Allergies Allergy/AdvReac Type Severity Reaction Status Date / Time No Known Allergies Allergy Verified 12/07/21 11:13 Physical Exam Vitals: Vital Signs Temp Pulse Resp BP Pulse Ox 12/07/21 12:52 70 16 131/85 100 12/07/21 11:44 99 12/07/21 10:49 98.3 F 69 16 95/69 100 Intake and Output 12/06/21 12/07/21 12/07/21 22:59 06:59 14:59 Other: Weight 81.647 kg Results CBC & Chem 7: 12/08/21 05:27 12/08/21 05:27 Labs: Abnormal Lab Results - Last 24 Hours (Table) 12/07/21 12/07/21 12/07/21 Range/Units 11:30 11:30 11:50 WBC 3.2 L (3.8-10.6) k/uL RDW 16.6 H (11.5-15.5) % Lymphocytes # 0.8 L (1.0-4.8) k/uL BUN 22 H (9-20) mg/dL Creatinine 1.28 H (0.66-1.25) mg/dL Urine Glucose (UA) (Negative) Coronavirus (PCR) Detected A (Not Detectd) 12/07/21 Range/Units 13:36 WBC (3.8-10.6) k/uL RDW (11.5-15.5) % Lymphocytes # (1.0-4.8) k/uL BUN (9-20) mg/dL Creatinine (0.66-1.25) mg/dL Urine Glucose (UA) 2+ H (Negative) Coronavirus (PCR) (Not Detectd)
[2021-12-07] MEDS ORDERED: LIDOCAINE 5% PATCH TOPICAL SCH (17:30)
--- NOTE | 2021-12-07 18:11 | CT ---
EXAMINATION TYPE: CT chest angio for PE DATE OF EXAM: 12/07/2021 COMPARISON: 01/31/2011 HISTORY: elevated d-dimer CT DLP: 528 mGycm Automated exposure control for dose reduction was used. CONTRAST: Performed with IV Contrast, patient injected with 100 mL of Isovue 370. There are Three-D postprocessed images. The lungs are clear of infiltrate. No pleural effusion or pneumothorax. Heart size is normal. No shawn cardial effusion. There is no mediastinal adenopathy. There are no hilar masses. There is no evidence of filling defect in the pulmonary arteries. Thoracic aorta is intact. No aneury sm or dissection. There is hiatal hernia noted. There is previous gastric surgery. The thoracic spine is intact. Sternum is intact. IMPRESSION: No evidence of pulmonary embolism. No evidence of acute lung disease.
[2021-12-07] MEDS: ACETAMINOPHEN TAB 325 MG TAB PO PRN (19:29)
[2021-12-07] MEDS ORDERED: ATORVASTATIN 40 MG TAB PO SCH (21:00)
[2021-12-07] MEDS ORDERED: buPROPion XL 150 MG TAB.ER.24H PO SCH (21:00)
[2021-12-08 02:38] VITALS: RESP 16
[2021-12-08] MEDS ORDERED: SODIUM CHLORIDE 0.9% 500 ML 500 ML IV ONE (04:35)
[2021-12-08] MEDS: ACETAMINOPHEN TAB 325 MG TAB PO PRN (05:38)
[2021-12-08] MEDS ORDERED: ASPIRIN 81 MG PO SCH (09:00)
[2021-12-08] MEDS ORDERED: ZINC SULFATE 220 MG CAP PO SCH (09:00)
[2021-12-08] MEDS ORDERED: carvediloL 3.125 MG TAB PO SCH (09:00)
[2021-12-08] MEDS ORDERED: ASCORBIC ACID 500 MG TAB PO SCH (09:00)
[2021-12-08] MEDS ORDERED: ENOXAPARIN 40 MG/0.4 ML SYRINGE SQ SCH (09:00)
[2021-12-08] MEDS ORDERED: CHOLECALCIFEROL 125 MCG (5000 IU) TABLET PO SCH (09:00)
[2021-12-08 09:01] LABS: HCT 35.9 % (39.6-50.0); HGB 11.2 g/dL (13.0-17.0); MCH 24.7 pg (27.0-32.0); MCHC 31.2 g/dL (32.0-37.0); MCV 79.1 fL (80.0-97.0); Mean Platelet Volume 11.3 fL (9.5-12.2); NRBC Per 100 WBC 0 /100 WBCS (0.0-0.0); Platelet Count 207 X 10*3/uL (140-440); RBC 4.54 X 10*6/uL (4.40-5.60); RDW 16.9 % (11.5-14.5); WBC 3.17 X 10*3/uL (4.50-10.00)
[2021-12-08 09:20] LABS: ALT 22 U/L (10-49); AST 31 U/L (14-35); African American GFR (CKD) 71.2 (60.0-200.0); Albumin 3.6 g/dL (3.8-4.9); Albumin/Globulin Ratio 1.44 (1.60-3.17); Alkaline Phosphatase 91 U/L (41-126); BUN/Creat Ratio 16.77 Ratio (12.00-20.00); Blood Urea Nitrogen 21.8 mg/dL (9.0-27.0); C Reactive Protein <0.30 mg/dL (0.00-0.80); Calcium 8.3 mg/dL (8.7-10.3); Chloride 108 mmol/L (96-109); Globulin 2.5 g/dL (1.6-3.3); Glucose 84 mg/dL (70-110); LDH 191 U/L (120-246); Magnesium 2.1 mg/dL (1.5-2.4); Non-African American GFR(CKD) 61.4 (60.0-200.0); Potassium 4.2 mmol/L (3.5-5.5); Sodium 140 mmol/L (135-145); Total Bilirubin <0.15 mg/dL (0.30-1.20); Total Protein 6.1 g/dL (6.2-8.2)
--- NOTE | 2021-12-08 09:25 | P.CRDCN ---
History of Present Illness Consult date: 12/07/21 History of present illness: CHIEF COMPLAINT: Syncope/hypotension HISTORY OF PRESENT ILLNESS: This is a 56-year-old male with a past medical history significant for hypertension, hyperlipidemia, diabetes, coronary artery disease, and ischemic cardiomyopathy with previous AICD implantation. Patient follows in the office with Dr. Salazar. We have been asked to see the patient in consultation for syncope/hypotension. Patient examined at the bedside. Patient presented to the hospital from long-term secondary to pre-syncope. Patient was diagnosed with Covid on 12/05/21. He has been experiencing generalized weakness and diarrhea since that time. Patient apparently went to the clinic to have his blood pressure checked and nodded off. He is unsure if he lost consciousness. Patient denies any chest pain or pressure. Denies shortness of breath. Patient was marginally hypotensive on arrival with a blood pressure in the 90s. He was given a 1 L fluid bolus. Orthostatic blood pressures this morning revealed blood pressure supine 101/66, blood pressure sitting 103/71, and blood pressure standing 8455. * EKG reveals sinus bradycardia with T-wave inversions in lateral leads, similar to previous EKG * Chest xray borderline heart size. No acute cardio pulmonary process. * Laboratory data: WBC 3.2. Hemoglobin 13.0. Platelet count 234. Sodium 137. Potassium 4.5. BUN 22. Creatinine 1.28. Troponin negative 1 * Current home cardiac medications include Coreg 3.125 mg daily, Lipitor 40 mg daily, and aspirin 81 mg daily * Most recent echocardiogram obtained in September 2021 revealing ejection fraction 30-35%, mild AR, mild TR, mild pulmonary hypertension * Cardiac catheterization history: 2012 revealing ejection fraction of 35% with 100% proximal LAD stenosis. Per office note, patient has chronically occluded LAD with extensive collaterals. * Patient underwent Lexiscan in July 2017 revealing redemonstrated findings suggesting large anterior, anteroseptal, and apical infarcts. The fixed defects or slightly larger and there is no suggestion of mild shawn-infarct ischemia on stress images. REVIEW OF SYSTEMS: Thorough review of systems not completed secondary to limited evaluation/examination due to Covid19 PHYSICAL EXAM: Thorough physical exam not completed secondary to limited evaluation/examination due to Covid19 ASSESSMENT: Acute Covid 19 Possible syncope/presyncope Diarrhea Marginal hypotension Acute kidney injury Coronary artery disease with chronically occluded LAD with extensive collaterals Ischemic cardiomyopathy with previous AICD implantation Hypertension Hyperlipidemia Diabetes PLAN: Repeat 2D echo Resume home cardiac medications including aspirin, Lipitor, and carvedilol Patient would benefit from an ACEI/ARB secondary to his ischemic cardiomyopathy. However the patient presented with borderline hypotension so we will hold off on initiating SUMIT inhibitor at this time. Continue telemetry monitoring and blood pressure monitoring Further recommendations for inpatient course Nurse practitioner note has been reviewed by physician. Signing provider agrees with the documented findings, assessment, and plan of care. Past Medical History Past Medical History: Coronary Artery Disease (CAD), Chest Pain / Angina, Heart Failure, Diabetes Mellitus, GERD/Reflux, Hyperlipidemia, Hypertension, Myocardial Infarction (WA), Osteoarthritis (OA), Pneumonia, Renal Disease, Sleep Apnea/CPAP/BIPAP, Vascular Disorder Additional Past Medical History / Comment(s): HX OF [place] X2 (DATE UNKNOWN),CARDIOMYOPATHY, RESP FAILURE, djd, NO C-PAP. PNEUMONIA 06/2014. PVD, diet controlled diabetes,(lost over 200lbs from bariatric sx) Last Myocardial Infarction Date:: UNKNOWN History of Any Multi-Drug Resistant Organisms: None Reported Past Surgical History: AICD, Bariatric Surgery, Heart Catheterization, Hernia Repair, Joint Replacement, Orthopedic Surgery Additional Past Surgical History / Comment(s): HEART ONLY WORKS AT 35% PER PT. ATTEMPTED HEART CATH, VESSELS TOO SMALL 2012,. RT KNEE TENDON REPAIR,UMBILICAL HERNIA REPAIR. EGD 08/28/14.gastric sleeve 09/14. AICD ST [place] 09/10/18, R hip 02/2019 Past Anesthesia/Blood Transfusion Reactions: No Reported Reaction Type of Cardiac Device: AICD Device Placement Date:: 09/10/18 Past Psychological History: ADD/ADHD, Anxiety, Depression Smoking Status: Current every day smoker Past Alcohol Use History: Rare Past Drug Use History: None Reported - Past Family History Father Family Medical History: Chest Pain / Angina, Congestive Heart Failure (CHF), COPD Additional Family Medical History / Comment(s): Father is alive Mother Family Medical History: Diabetes Mellitus, GERD/Reflux Additional Family Medical History / Comment(s): Mother is alive. Medications and Allergies Home Medications Medication Instructions Recorded Confirmed Type Aspirin 81 mg PO DAILY 30 Days #30 tab 10/12/21 12/07/21 Rx Atorvastatin [Lipitor] 40 mg PO HS 30 Days #30 tab 10/12/21 12/07/21 Rx Acetaminophen Tab [Tylenol] 650 mg PO BID PRN 12/07/21 12/07/21 History Omeprazole 20 mg PO DAILY 12/07/21 12/07/21 History buPROPion XL [Wellbutrin XL] 150 mg PO HS 12/07/21 12/07/21 History carvediloL [Coreg] 3.125 mg PO DAILY 12/07/21 12/07/21 History Allergies Allergy/AdvReac Type Severity Reaction Status Date / Time No Known Allergies Allergy Verified 12/07/21 11:13 Physical Exam Vitals: Vital Signs Temp Pulse Resp BP Pulse Ox 12/07/21 12:52 70 16 131/85 100 12/07/21 11:44 99 12/07/21 10:49 98.3 F 69 16 95/69 100 Intake and Output 12/06/21 12/07/21 12/07/21 22:59 06:59 14:59 Other: Weight 81.647 kg Results 12/08/21 05:27 12/07/21 11:30 Cardiac Enzymes 12/07/21 12/07/21 Range/Units 11:30 11:30 AST 58 (17-59) U/L Troponin I 0.021 (0.000-0.034) ng/mL Coagulation 12/07/21 Range/Units 11:30 PT 11.9 (9.0-12.0) sec APTT 25.7 (22.0-30.0) sec CBC 12/07/21 Range/Units 11:30 WBC 3.2 L (3.8-10.6) k/uL RBC 5.11 (4.30-5.90) m/uL Hgb 13.0 (13.0-17.5) gm/dL Hct 41.0 (39.0-53.0) % Plt Count 234 (150-450) k/uL Comprehensive Metabolic Panel 12/07/21 Range/Units 11:30 Sodium 137 (137-145) mmol/L Potassium 4.5 (3.5-5.1) mmol/L Chloride 103 (98-107) mmol/L Carbon Dioxide 24 (22-30) mmol/L BUN 22 H (9-20) mg/dL Creatinine 1.28 H (0.66-1.25) mg/dL Glucose 76 (74-99) mg/dL Calcium 8.6 (8.4-10.2) mg/dL AST 58 (17-59) U/L ALT 27 (4-49) U/L Alkaline Phosphatase 85 (38-126) U/L Total Protein 7.5 (6.3-8.2) g/dL Albumin 4.0 (3.5-5.0) g/dL Current Medications Generic Name Dose Route Start Last Admin Trade Name Freq PRN Reason Stop Dose Admin Aspirin 81 mg 12/08/21 09:00 Aspirin 81 Mg PO DAILY [facility] Atorvastatin Calcium 40 mg 12/07/21 21:00 Atorvastatin 40 Mg Tab PO HS [facility] Bupropion HCl 150 mg 12/07/21 21:00 Bupropion Xl 150 Mg Tab.Er.24h PO HS [facility] Carvedilol 3.125 mg 12/08/21 09:00 Carvedilol 3.125 Mg Tab PO DAILY [facility] Naloxone HCl 0.2 mg 12/07/21 13:07 Naloxone 0.4 Mg/Ml 1 Ml Vial IV Q2M PRN Opioid Reversal Intake and Output 12/06/21 12/07/21 12/07/21 22:59 06:59 14:59 Other: Weight 81.647 kg Patient Weight 12/08/21 06:59 Weight 81.647 kg 12/07/21 11:30 12/07/21 11:30
--- NOTE | 2021-12-08 10:55 | CA ---
Transthoracic Echo Report Name: Delroy Francisco Age: 56 Gender: M : 1965 Exam Date: 12/08/2021 09:10 Exam Location: [place] [facility] Ht (in): 67 Wt (lb): 180 Ordering Physician: Chika Monreal Attending/Referring Phys: [id number], Jocelin Quality Control Director Romina Lawson RDCS Procedure CPT: Indications: syncope, covid Cardiac Hx: Technical Quality: Technically difficult study Contrast 1: Lumason Total Dose (mL): 4 Contrast 2: Total Dose (mL): MEASUREMENTS (Male / Female) Normal Values 2D ECHO LV Diastolic Diameter PLAX 3.4 cm 4.2 - 5.9 / 3.9 - 5.3 cm LV Systolic Diameter PLAX 2.6 cm IVS Diastolic Thickness 1.9 cm 0.6 - 1.0 / 0.6 - 0.9 cm LVPW Diastolic Thickness 2.0 cm 0.6 - 1.0 / 0.6 - 0.9 cm LV Relative Wall Thickness 1.2 FINDINGS Left Ventricle Limited study. Moderately increased left ventricular wall thickness. Left ventricular ejection fraction is estimated at 35 %. Hypokinetic anterior wall. [place] hypokinetic. Right Ventricle Right Atrium Left Atrium Mitral Valve No mitral stenosis. Mild mitral regurgitation Aortic Valve No aortic valve stenosis or regurgitation. Tricuspid Valve Pulmonic Valve Pericardium No pericardial or pleural effusion. Aorta CONCLUSIONS Ischemic cardiomyopathy with severe LV dysfunction with evidence of prior myocardial infarction in LAD distribution Mild mitral regurgitation Previewed by: Dr. Robby Salazar MD (Electronically Signed) Final Date: 08 Dec 2021 10:54
[2021-12-08 13:45] VITALS: BP 103/62; PULSE 64; TEMP 98.1
--- NOTE | 2021-12-08 14:04 | P.DS ---
Providers Date of admission: 12/07/21 13:18 Expected date of discharge: 12/08/21 Attending physician: Maci Garcia MD Consults: 12/07/21 13:08 Consult Physician Routine Consulting Provider: Juan Pablo Nicolas Consult Reason/Comments: syncope, hypotension, covid Do you want consulting provider notified?: Yes Primary care physician: [facility] Hospital Course: Discharge Diagnosis: Syncopal episode Hypotension, resulting from dehydration from secondary to diarrhea Orthostatic hypotension, resolved after IV fluid hydration Bradycardia, parameters placed on Coreg to hold for systolic pressure less than 100 and/or heart rate less than 60. COVID 19 virus with diarrhea, diarrhea has resolved. Patient encouraged to continue with oral hydration and maintain contact precautions to prevent further spread of infection. Dehydration, resolved after IV fluid hydration History sick sinus syndrome status post AICD placement, interrogation report received showing no recent significant events Chronic systolic heart failure with previously known EF of 30-35%, repeat echocardiogram unchanged revealing an EF of 35% Hypertension, Monitor vital signs and parameters placed on carvedilol to hold for systolic pressure less than 100 and/or heart rate less than 60 secondary to findings of bradycardia and hypotension. Hyperlipidemia, Continue daily medication regimen with atorvastatin. Hospital Course: Patient is a 56-year-old male with a past medical history of CAD with previous M I's, sick sinus syndrome status post AICD placement, chronic systolic heart failure with previously known EF of 30-35%, hypertension, hyperlipidemia, and bariatric surgery (gastric sleeve). He presented to the emergency department in custody of [facility] officer with a chief complaint of syncopal episode. Patient reports he has generally been feeling unwell over the past 6 days reporting generalized fatigue, malaise, chills, occasional cough, diarrhea and diaphoresis. Patient reports he underwent testing for Covid and tested positive on 12/05/21 at [facility]. Patient does report receiving 2 vaccinations but states he did not receive his booster. Patient states this morning he was feeling slightly off and weak almost as though he was going to pass out and was lightheaded so he went to the medical clinic for evaluation and to have his blood pressure checked. Patient reports while sitting in the office getting his blood pressure checked he believes he passed out while sitting in the chair because his head nodded off and then he believes he awoken and jerked his head back up. Pt states this only lasted a couple of seconds and denies falling from the chair or obtaining any injuries. Pt denies experiencing any known fevers, headache, changes in his vision or hearing,chest pain or palpitations, shortness of breath, abdominal pain, nausea, vomiting, or experiencing any numbness/tingling/weakness/swelling in his extremities. he underwent full evaluation in the emergency department. He was found to have mild leukopenia with WBC count of 3.2, BUN 22 and creatinine of 1.28 with baseline creatinine of 1.2. Urinalysis was negative for infection. Covid PCR was positive. Influenza A and B were negative. Chest x-ray negative for acute cardiopulmonary process. EKG revealing sinus bradycardia at 55 bpm with anterolateral T-wave inversion in leads V4 through V6. upon arrival patient was slightly hypotensive with blood pressure 95/69. Patient was given a 1 L bolus of 0.9% normal saline in the ED with resolution of hypotension and repeat blood pressure of 131/85. Patient denied having shortness of breath and SpO2 is 100% on room air. Patient was given Bebtelovimab in ED and then admitted under our services with consultation to cardiology. D-dimer was elevated at 0.72. CTA chest was completed ruling out pulmonary emboli and again revealing no acute c ardiopulmonary process. Troponins trended throughout the night 0.016, 0.020, and 0.021. Inflammatory markers monitored CRP less than 0.30 and LDH of 191. Repeat CBC and CMP completed showing no significant abnormalities. Patient's vital signs stable. Prior to fluid bolus orthostatic vitals were 101/66 lying, 103/71 sitting, and 84/55 upon standing. Heart rate also elevated at 52 bpm upon standing when compared to lying position. After fluid bolus repeat orthostatic vitals significantly improved with heart rate maintaining an 60s to lying, sitting, and standing position and blood pressure ranging from 103/62 lying, 113/69 sitting, and 99/72 standing. Echocardiogram completed revealing an EF of 35% with hypokinesis of anterior wall and apex. Interrogation report for AICD was received showing no significant cardiac events over the past 24 hours. Syncopal episode, hypotension, and orthostatic hypotension is secondary to dehydration resulting from patient's reports of diarrhea over the past 6 days. Since arrival to facility, patient has been tolerating oral intake and drinking plenty of fluids. Patient has had no further reported episodes of diarrhea and had no episodes of nausea or vomiting. Patient was seen and evaluated by cardiology and they are in agreement presyncopal/syncopal episode and hypotension was secondary to dehydration and no concerns for underlying card iac event at this time. Cardiology recommending no further cardiac workup at this time in for patient to follow-up with forensic computer examiner outpatient. Patient is medically stable at this time for discharge at this time and being discharged back into custody of [facility] officer to [facility]. Physical exam: Vital signs reviewed and stable. General: Nontoxic, no distress and appears stated age. Derm: Skin warm and dry, normal coloration for ethnicity. Head: Atraumatic, normocephalic and symmetric. Eyes: EOMs intact, no lid lag, and anicteric sclera Mouth: no lip lesions, mucus membranes moist Cardiovascular: regular rate and rhythm with normal S1S2, soft systolic murmur, positive posterior tibial pulses bilaterally, and cap refill < [address] left anterior chest. Lungs: Respirations even, regular, and unlabored on room air. Lungs CTA bilaterally, no rhonchi, no rales, no wheezing, and no accessory muscle usage. Abdominal: soft, nontender to palpation, no guarding, no appreciable organomegaly Ext: ROM intact. No gross muscle atrophy, no edema, no contractures Neuro: Speech clear, face symmetrical and CN II-XII grossly intact with no noted focal neuro deficits Psych: Alert and oriented to person, place, time, and situation. Appropriate and pleasant affect. A total of 37 minutes of time were spent preparing this complex discharge summary. Pt was discharged on 12/08/21 at 1:51 PM. I reviewed the documentation as provided by the MARIAN above, who is the original author of this note. I agree with the documented assessment and plan, with the following changes: none Patient Condition at Discharge: Good Plan - Discharge Summary Discharge Rx Participant: No New Discharge Prescriptions: Continue Atorvastatin [Lipitor] 40 mg PO HS 30 Days #30 tab Aspirin 81 mg PO DAILY 30 Days #30 tab Acetaminophen Tab [Tylenol] 650 mg PO BID PRN PRN Reason: Pain buPROPion XL [Wellbutrin XL] 150 mg PO HS Omeprazole 20 mg PO DAILY Changed carvediloL [Coreg] 3.125 mg PO DAILY #0 Discharge Medication List Aspirin 81 mg PO DAILY 30 Days #30 tab 10/12/21 [Rx] Atorvastatin [Lipitor] 40 mg PO HS 30 Days #30 tab 10/12/21 [Rx] Acetaminophen Tab [Tylenol] 650 mg PO BID PRN 12/07/21 [History] Omeprazole 20 mg PO DAILY 12/07/21 [History] buPROPion XL [Wellbutrin XL] 150 mg PO HS 12/07/21 [History] carvediloL [Coreg] 3.125 mg PO DAILY #0 12/08/21 [Rx] Follow up Appointment(s)/Referral(s): Susanne Gamino MD [Primary Care Provider] - As Needed Patient Instructions/Handouts: Coronavirus Disease 2019 (COVID-19), Hypotension (DC) Activity/Diet/Wound Care/Special Instructions: Activity: As tolerated. Take breaks as needed. Diet: Heart healthy and carb consistent diet. Avoid salts, or foods with hidden salts such as canned or boxed foods and frozen dinners. Extra salt makes your heart work harder and traps the fluid in your body for longer. Special Instructions: Take all of your medications as directed and follow up with [facility]. Discharge Disposition: DC/TRANSFER COURT/LAW
== END 2021-12-08 14:23 ==
LOC: EC 10:42 → 6NMEDSUR 13:18
PROVIDERS: ADMIT Family Medicine; ATTEND Family Medicine
DX: I95.1 Orthostatic hypotension (principal); U07.1 COVID-19; E86.0 Dehydration; R19.7 Diarrhea, unspecified; R00.1 Bradycardia, unspecified; R53.81 Other malaise; R61 Generalized hyperhidrosis; R68.83 Chills (without fever); R53.83 Other fatigue; I11.0 Hypertensive heart disease with heart failure; I50.22 Chronic systolic (congestive) heart failure; E78.5 Hyperlipidemia, unspecified; I25.10 Atherosclerotic heart disease of native coronary artery without angina pectoris; I25.2 Old myocardial infarction; D72.819 Decreased white blood cell count, unspecified; R79.89 Other specified abnormal findings of blood chemistry; E11.51 Type 2 diabetes mellitus with diabetic peripheral angiopathy without gangrene; K21.9 Gastro-esophageal reflux disease without esophagitis; M19.90 Unspecified osteoarthritis, unspecified site; G47.30 Sleep apnea, unspecified; N28.9 Disorder of kidney and ureter, unspecified; F32.A Depression, unspecified; F41.9 Anxiety disorder, unspecified; F90.9 Attention-deficit hyperactivity disorder, unspecified type; F17.200 Nicotine dependence, unspecified, uncomplicated; I25.5 Ischemic cardiomyopathy; I25.82 Chronic total occlusion of coronary artery; N17.9 Acute kidney failure, unspecified; M54.9 Dorsalgia, unspecified; G89.29 Other chronic pain; I34.0 Nonrheumatic mitral (valve) insufficiency; Z95.810 Presence of automatic (implantable) cardiac defibrillator; Z71.9 Counseling, unspecified; Z71.3 Dietary counseling and surveillance; Z98.84 Bariatric surgery status; Z87.01 Personal history of pneumonia (recurrent); Z79.82 Long term (current) use of aspirin; Z79.899 Other long term (current) drug therapy; Z82.49 Family history of ischemic heart disease and other diseases of the circulatory system; Z82.5 Family history of asthma and other chronic lower respiratory diseases; Z83.3 Family history of diabetes mellitus; Z83.79 Family history of other diseases of the digestive system
CPT/HCPCS: 96372; 96360; 99285; 36415; 93005; 85379; 80053 ×2; 83615; 83735 ×2; 84484; 85025; 85027; 85610; 85730; 86140; 81003; 87502; 87635; 71046; 71275; G0378 ×2; M0222; C8924; J1650; Q9950; Q9967; Q0222; 93308

== ENCOUNTER 2024-02-22 08:44 | Emergency (ER) | payer BC, MEDICARE, OTHER ==
[2024-02-22] MEDS: SODIUM CHLORIDE 0.9% 1,000 ML IV STA (09:29)
[2024-02-22] MEDS: MORPHINE SULFATE 4 MG/ML SYRINGE IVP STA (09:29)
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
[2024-02-22 09:39] LABS: Partial Thromboplastin Time 24.8 sec (22.0-30.0); Prothrombin Time 11.3 sec (10.0-12.5)
[2024-02-22 09:46] LABS: ALT 11 U/L (4-49); AST 24 U/L (17-59); African American GFR (CKD) 72 (>60 ml/min/1.73 sqM); Albumin 3.3 g/dL (3.5-5.0); Alkaline Phosphatase 71 U/L (38-126); Anion Gap 5 mmol/L; Blood Urea Nitrogen 22 mg/dL (9-20); Calcium 8.2 mg/dL (8.4-10.2); Carbon Dioxide 22 mmol/L (22-30); Chloride 109 mmol/L (98-107); Glucose 171 mg/dL (74-99); Non-African American GFR(CKD) 62 (>60 ml/min/1.73 sqM); Sodium 136 mmol/L (137-145); Total Bilirubin 0.4 mg/dL (0.2-1.3)
[2024-02-22 09:51] LABS: Anisocytosis Slight; Basophils % (A) 0 %; Eosinophils # (A) 0.1 k/uL (0-0.7); Eosinophils % (A) 3 %; HCT 29.7 % (39.0-53.0); HGB 8.9 gm/dL (13.0-17.5); Hypochromasia Marked; Lymphocytes # (A) 1.1 k/uL (1.0-4.8); Lymphocytes % (A) 25 %; MCH 20.7 pg (25.0-35.0); MCHC 29.8 g/dL (31.0-37.0); MCV 69.4 fL (80.0-100.0); Mean Platelet Volume 6.5; Microcytosis Marked; Monocytes # (A) 0.3 k/uL (0-1.0); Monocytes % (A) 7 %; Neutrophils # (A) 2.8 k/uL (1.3-7.7); Neutrophils % (A) 64 %; Platelet Count 402 k/uL (150-450); RBC 4.28 m/uL (4.30-5.90); RDW 16.6 % (11.5-15.5); WBC 4.5 k/uL (3.8-10.6)
--- NOTE | 2024-02-22 09:51 | XR ---
EXAMINATION TYPE: XR knee limited LT DATE OF EXAM: 02/22/2024 CLINICAL HISTORY: pain TECHNIQUE: Three views of the left knee are obtained. COMPARISON: None. FINDINGS: There is no acute fracture/dislocation. The tri-compartment joint spaces appear within no rmal limits. The overlying soft tissue appears unremarkable. IMPRESSION: There is no acute fracture or dislocation ICD 10 NO FRACTURE, INITIAL EVALUATION
--- NOTE | 2024-02-22 09:51 | XR ---
EXAMINATION TYPE: XR tibia fibula LT DATE OF EXAM: 02/22/2024 CLINICAL HISTORY: pain TECHNIQUE: AP and lateral images of the left tibia and fibula are obtained. COMPARISON: None. FINDINGS: There is no acute fracture/dislocation evident. The joint spaces appear within normal el its. The overlying soft tissue appears unremarkable. IMPRESSION: There is no acute fracture or dislocation seen. ICD 10 NO FRACTURE, INITIAL EVALUATION
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
[2024-02-22 11:08] VITALS: BP 148/80; PULSE 90; RESP 18; TEMP 98
[2024-02-22] MEDS: SULFAMETHOX-TMP 800-160MG 1 EACH TAB PO STA (11:32)
[2024-02-22] MEDS: ACET/COD 300 MG/30 MG STARTER PACK 6 TAB BTL PO STA (11:32)
== END 2024-02-22 11:38 | disposition home or self-care (01) ==
LOC: EC 08:44
DX: S80.12XA Contusion of left lower leg, initial encounter (principal); D50.9 Iron deficiency anemia, unspecified; F17.200 Nicotine dependence, unspecified, uncomplicated; V29.99XA Rider (driver) (passenger) of other motorcycle injured in unspecified traffic accident, initial encounter; Y92.410 Unspecified street and highway as the place of occurrence of the external cause
CPT/HCPCS: 36415; 80053; 85025; 85610; 85730; 73590; 73560; 93971; 76882; 99284; 96374; 96361; J2270

== ENCOUNTER → 2024-03-18 | Outpatient (CLI) | payer MEDICARE | END | disposition home or self-care (01) | LOC: LABWHC1 10:19 | PROVIDERS: ATTEND Surgery | CPT/HCPCS: 86850; 86900; 86901 ==

== ENCOUNTER 2024-03-20 10:25 | Day surgery (SDC) | payer MEDICARE ==
[~2024-03-20 10:25] MED LIST changes: +ACETAMINOPHEN TAB 500 MG TAB ONE; -ACETAMINOPHEN TAB 500 MG TAB PO ONE; -DEXAMETHASONE SOD PHOSPHATE 10 MG/ML 1 ML VIAL IV ONE; +DEXAMETHASONE SOD PHOSPHATE 4 MG/ML 1 ML VIAL ONE; +HEPARIN SODIUM,PORCINE 5,000 UNIT/ML 1 ML VIAL ONE; -LACTATED RINGERS 1,000 ML IV SCH; -LIDOCAINE 1% 20 ML VIAL (10MG/ML) FOR IV START INTRADERMA PRN; -MELOXICAM 7.5 MG TAB PO ONE; -MIDAZOLAM 2 MG/2 ML VIAL IV PRN; +MIDAZOLAM 2 MG/2 ML VIAL ONE; -ONDANSETRON 4 MG/2 ML VIAL IVP ONE; +ONDANSETRON 4 MG/2 ML VIAL ONE; -ROPIVACAINE 246.25 MG, EPINEPHrine 0.5 MG, KETOROLAC 30 MG, cloNIDine HCL/PF 80 MCG, WA... MISCELLANE ONE; +ROPIVACAINE 5 MG/ML 30 ML VIAL ONE; -SCOPOLAMINE 1.5MG/72HR PATCH TRANSDERM ONE; +SODIUM CHLORIDE 0.9% (PF) VIAL 20 ML ONE; -TRANEXAMIC ACID 1,000 MG in SODIUM CHLORIDE 0.9% 100 ML IVPB ONE
[2024-03-20] MEDS ORDERED: LIDOCAINE 1% INJ 10MG/ML (20 ML MDV) ONE (11:25)
[2024-03-20] MEDS ORDERED: ceFAZolin 1,000 MG VIAL ONE (11:25)
[2024-03-20] MEDS ORDERED: GLYCOPYRROLATE 0.2 MG/ML 2 ML VIAL ONE (11:25)
[2024-03-20] MEDS ORDERED: LACTATED RINGERS 1,000 ML BAG ONE (11:25)
[2024-03-20] MEDS ORDERED: NEOSTIGMINE 1 MG/ML 10 ML VIAL ONE (11:25)
[2024-03-20] MEDS ORDERED: SUCCINYLCHOLINE CHLORIDE 200 MG/10 ML VIAL IV ONE (11:25)
[2024-03-20] MEDS ORDERED: LIDOCAINE 1%-EPI 1:100,000 20 ML VIAL ONE (11:25)
[2024-03-20] MEDS ORDERED: SODIUM CHLORIDE 0.9% 50 ML BAG ONE (11:25)
[2024-03-20] MEDS ORDERED: KETAMINE HCL IN 0.9 % NACL 50 MG/5 ML SYRINGE ONE (11:25)
[2024-03-20] MEDS ORDERED: DEXAMETHASONE SOD PHOSPHATE 4 MG/ML 1 ML VIAL ONE (11:25)
[2024-03-20] MEDS ORDERED: fentaNYL (PF) 50 MCG/ML 2 ML AMP ONE ×2 (11:25→12:44)
[2024-03-20] MEDS ORDERED: ROPIVACAINE 5 MG/ML 30 ML VIAL ONE (11:25)
[2024-03-20] MEDS ORDERED: PROPOFOL 10 MG/ML 20 ML VIAL IV ONE (11:25)
[2024-03-20] MEDS ORDERED: ROCURONIUM 10 MG/ML (5 ML VIAL) IV ONE (11:25)
[2024-03-20] MEDS ORDERED: SODIUM CHLORIDE 0.9% (PF) 10 ML VIAL ONE (11:25)
[2024-03-20] MEDS ORDERED: HYDROmorphone 0.5 MG/0.5 ML SYRINGE ONE ×3 (12:38→13:17)
--- NOTE | 2024-04-25 14:44 | OP ---
OPERATIVE REPORT DATE OF SERVICE : 03/20/2024 PROCEDURE PERFORMED: Laparoscopic robotic repair of incarcerated ventral hernia. CATH LAB MANAGER: None. ANESTHESIA: General endotracheal anesthesia. DESCRIPTION OF PROCEDURE: The patient was placed on the operating table in the supine position. He received general endotracheal tube anesthesia. His abdomen was prepped and draped in usual sterile fashion. The patient had a midline ventral hernia, incarcerated with omentum. The 12-mm robotic trocar was placed in left lateral position. The 8 mm robotic trocar was placed in the left epigastric position and the left lower robotic trocar was placed in the left lower position. The hernia was visualized. The omentum was incarcerated in the hernia. This was dissected free. The portion of the omentum was sent to pathology. The fascial defect was then closed with 0 V-Loc suture and then the mesh was secured with 3-0 nylon sutures. The needles were retrieved. The abdomen was desufflated. The skin was then closed with 3-0 Monocryl suture. The 12 mm trocar site was closed with 0 Vicryl, then 3-0 Monocryl suture. The patient tolerated the procedure well. He was sent to recovery room in stable condition. MMODL / IJN: [id number] /
== END 2024-03-20 15:47 ==
LOC: OR 10:25
PROVIDERS: ATTEND Surgery
DX: K43.0 Incisional hernia with obstruction, without gangrene (principal); I25.2 Old myocardial infarction; I25.10 Atherosclerotic heart disease of native coronary artery without angina pectoris; G47.33 Obstructive sleep apnea (adult) (pediatric); F90.9 Attention-deficit hyperactivity disorder, unspecified type; F17.200 Nicotine dependence, unspecified, uncomplicated; Z95.0 Presence of cardiac pacemaker; Z79.899 Other long term (current) drug therapy
CPT/HCPCS: 64999; 88305